=== PATIENT | female | born 1975 | race Caucasian/White ===

== ENCOUNTER 2016-08-16 12:28 | Emergency (ER) | payer OTHER ==
[2016-08-16 12:43] VITALS: BP 139/85; PULSE 80; TEMP 98; BMI 50.2
[2016-08-16] MEDS ORDERED: diazePAM 5 MG TABLET PO ONE (13:47)
[2016-08-16] MEDS ORDERED: NAPROXEN 500 MG TABLET (FP) PO ONE (13:48)
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
[2016-08-16] MEDS ORDERED: NAPROXEN 500 MG TABLET (FP) ONE (14:06)
[2016-08-16] MEDS ORDERED: diazePAM 5 MG TABLET ONE (14:07)
[2016-08-16 14:13] LABS: URINE APPEARANCE CLEAR; URINE BILIRUBIN NEGATIVE (NEGATIVE); URINE BLOOD NEGATIVE (NEGATIVE); URINE COLOR LTYELLOW; URINE GLUCOSE (UA) NEGATIVE (NEGATIVE); URINE KETONE NEGATIVE (NEGATIVE); URINE LEUK ESTERASE NEGATIVE (NEGATIVE); URINE NITRITE NEGATIVE (NEGATIVE); URINE PROTEIN NEGATIVE (NEGATIVE); URINE UROBILINOGEN NEGATIVE E.U./dl (0.2-1.0)
[2016-08-16] MEDS ORDERED: OXYCODONE/APAP 5/325MG COMBO TABLET PO ONE (15:26)
[2016-08-16] MEDS ORDERED: OXYCODONE/APAP 5/325MG COMBO TABLET ONE (15:47)
== END 2016-08-16 15:51 | disposition home or self-care (01) ==
LOC: JER 12:28 → JERFT 12:28
DX: S20.212A Contusion of left front wall of thorax, initial encounter (principal); S90.122A Contusion of left lesser toe(s) without damage to nail, initial encounter; W11.XXXA Fall on and from ladder, initial encounter; Y93.89 Activity, other specified; Y92.89 Other specified places as the place of occurrence of the external cause; Y99.8 Other external cause status
CPT/HCPCS: 71101-TC; 73660-TC; 81003; 84703; 99281-25

== ENCOUNTER 2016-09-17 21:32 | Emergency (ER) | payer OTHER ==
[2016-09-17 21:45] VITALS: BMI 51.5
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
[2016-09-17] MEDS ORDERED: ONDANSETRON 4 MG/2 ML VIAL IVPB ONE (22:24)
[2016-09-17] MEDS ORDERED: morphine CARPU-JECT 2 MG/1 ML DISP.SYRIN IVPUSH ONE (22:24)
[2016-09-17] MEDS ORDERED: SODIUM CHLORIDE 0.9% 500 ML INFUS.BAG IV ONE (22:24)
[2016-09-17] MEDS ORDERED: morphine CARPU-JECT 2 MG/1 ML DISP.SYRIN ONE (22:55)
[2016-09-17 23:07] LABS: BASOPHIL 1.2 % (0-2.0); EOSINOPHIL 1.7 % (0-4.5); MCH 27.2 pg (25.7-33.7); MCHC 32.9 g/dl (32.0-36.0); MEAN CELL VOLUME 82.7 fl (80-96); MEAN PLT VOLUME 8.3 fl (7.5-11.1); NEUTROPHILS 60.7 % (42.8-82.8); PLATELET COUNT 283 K/MM3 (134-434); RDW 14.4 % (11.6-15.6); WHITE BLOOD COUNT 12.8 K/mm3 (4.0-10.0)
[2016-09-17 23:34] LABS: ALBUMIN 3.9 g/dl (3.4-5.0); ALK PHOS 94 U/L (45-117); ANION GAP 11 (8-16); BILIRUBIN,TOTAL 0.6 mg/dL (0.2-1.0); CALCIUM 9.5 mg/dL (8.5-10.1); CO2 28 mmol/L (21-32); CREATININE 0.8 mg/dL (0.55-1.02); GLUCOSE,RANDOM 104 mg/dL (74-106); SGPT/ALT 42 U/L (12-78); TOT PROT 7.3 g/dl (6.4-8.2)
[2016-09-17 23:38] LABS: SGOT/AST 26 U/L (15-37)
[2016-09-18] MEDS ORDERED: morphine CARPU-JECT 2 MG/1 ML DISP.SYRIN IVPUSH ONE (00:22)
[2016-09-18] MEDS ORDERED: morphine CARPU-JECT 2 MG/1 ML DISP.SYRIN ONE (00:57)
[2016-09-18 01:53] LABS: URINE APPEARANCE CLEAR; URINE BILIRUBIN NEGATIVE (NEGATIVE); URINE BLOOD NEGATIVE (NEGATIVE); URINE COLOR YELLOW; URINE GLUCOSE (UA) NEGATIVE (NEGATIVE); URINE KETONE NEGATIVE (NEGATIVE); URINE LEUK ESTERASE NEGATIVE (NEGATIVE); URINE NITRITE NEGATIVE (NEGATIVE); URINE PROTEIN NEGATIVE (NEGATIVE); URINE UROBILINOGEN NEGATIVE E.U./dl (0.2-1.0)
[2016-09-18 03:36] VITALS: BP 128/73; PULSE 86; TEMP 97.5
== END 2016-09-18 03:35 | disposition home or self-care (01) ==
LOC: JER 21:32 → SUPCPDRO 21:32 → JER 09-18 03:35
PROC: 3E033NZ Introduction of Analgesics, Hypnotics, Sedatives into Peripheral Vein, Percutaneous Approach (ICD-10-PCS; principal; 2016-09-17)
PROC: 3E033GC Introduction of Other Therapeutic Substance into Peripheral Vein, Percutaneous Approach (ICD-10-PCS; 2016-09-17)
DX: M54.5 Low back pain (principal); E66.01 Morbid (severe) obesity due to excess calories; Z68.43 Body mass index [BMI] 50.0-59.9, adult
CPT/HCPCS: 36415; 74176; 80053; 81003; 84703; 85025; 96374; 96375; 96376; 99282-25

== ENCOUNTER 2016-10-03 11:53 | Emergency (ER) | payer OTHER ==
[2016-10-03 12:00] VITALS: BP 150/78; PULSE 80; TEMP 98; BMI 51.9
[2016-10-03] MEDS ORDERED: ALBUTEROL SO4 0.083% IH SOL 2.5 MG/3 ML VIAL.NEB. NEB ONE ×2 (12:35→12:42)
[2016-10-03] MEDS ORDERED: IBUPROFEN 400 MG TABLET (FP) PO ONE ×2 (12:35→12:42)
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
== END 2016-10-03 13:21 | disposition home or self-care (01) ==
LOC: JERFT 11:53
PROC: 3E0F7GC Introduction of Other Therapeutic Substance into Respiratory Tract, Via Natural or Artificial Opening (ICD-10-PCS; principal; 2016-10-03)
DX: J45.20 Mild intermittent asthma, uncomplicated (principal); F17.210 Nicotine dependence, cigarettes, uncomplicated
CPT/HCPCS: 87070; 87430; 94640; 99281-25

== ENCOUNTER → 2016-11-02 | Emergency (ER) | payer OTHER ==
[~2016-11-02] MED LIST: ACETAMINOPHEN 1000 MG/100 ML VIAL (NON FORMULARY) IVPB ONE; ACETAMINOPHEN INJECTION 100 ML IVPB ONE; FAMOTIDINE 20 MG/50 ML IVPB 50 ML IVPB ONE; MAG HYDROX/AL HYDROX/SIMETH 30 ML UNIT-DOSE CUP ONE; ONDANSETRON 4 MG/2 ML VIAL ONE; morphine CARPU-JECT 2 MG/1 ML DISP.SYRIN IVPUSH ONE; morphine CARPU-JECT 2 MG/1 ML DISP.SYRIN ONE
[2016-11-02 14:40] VITALS: BP 130/80; PULSE 93; TEMP 97.7; BMI 54.1
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
[2016-11-02 16:56] LABS: URINE APPEARANCE CLEAR; URINE BILIRUBIN NEGATIVE (NEGATIVE); URINE BLOOD NEGATIVE (NEGATIVE); URINE COLOR YELLOW; URINE GLUCOSE (UA) NEGATIVE (NEGATIVE); URINE KETONE NEGATIVE (NEGATIVE); URINE NITRITE NEGATIVE (NEGATIVE); URINE PROTEIN NEGATIVE (NEGATIVE); URINE UROBILINOGEN NEGATIVE E.U./dl (0.2-1.0)
[2016-11-02 17:17] LABS: URINE LEUK ESTERASE TRACE (NEGATIVE)
[2016-11-02 17:19] LABS: URINE MUCUS MANY; URINE RBC <1 /hpf (0-3); URINE WBC 1 /hpf (3-5)
--- NOTE | 2016-11-02 19:15 | PDOC ---
Attending Attestation - Resident Resident Name: Tanya Vines - HPI HPI: 11/02/16 19:14 obese 41 yo female p/w nontraumatic left knee pain -no erythema -pain with extending her leg - Physicial Exam PE: 11/02/16 19:15 obese 41 yo female p/w with pain behind her left knee and increased pain with left leg extension lungs cta b/l cvs [id number] abd obese,nontender neuro axox3 - Medical Decision Making 11/02/16 19:30 Duplex doppler shows Nicholson;s cyst in left knee, no DVT 11/02/16 19:30 discharge home with ortho followup
--- NOTE | 2016-11-02 19:33 | PDOC ---
*Physical Exam - Vital Signs Last Vital Signs Temp Pulse Resp BP Pulse Ox 97.7 F 93 H 18 130/80 100 11/02/16 14:36 11/02/16 14:36 11/02/16 14:36 11/02/16 14:36 11/02/16 14:36 ED Treatment Course - ADDITIONAL ORDERS Additional order review: Laboratory Results 11/02/16 15:58 Urine Color Yellow Urine Appearance Clear Urine pH 6.0 Ur Specific [place] 1.025 Urine Protein Negative Urine Glucose (UA) Negative Urine Ketones Negative Urine Blood Negative Urine Nitrite Negative Urine Bilirubin Negative Urine Urobilinogen Negative Ur Leukocyte Esterase Trace H Urine RBC <1 Urine WBC 1 Ur Epithelial Cells Moderate Urine Mucus Many Urine HCG, Qual Negative - RADIOLOGY Radiology Studies Ordered: Category Date Time Status DUPLEX VASCUL US-1 LEG [US] Stat Ultrasound 11/02/16 18:28 Completed - Medications Given in the ED: ED Medications Discontinued Medications Generic Name Dose Route Start Last Admin Trade Name Isidoro PRN Reason Stop Dose Admin Acetaminophen 1,000 mg 11/02/16 16:39 11/02/16 17:30 Ofirmev Injection - IVPB 11/02/16 16:40 1,000 mg ONCE ONE Administration Morphine Sulfate 2 mg 11/02/16 18:14 11/02/16 18:25 Morphine Injection - IVPUSH 11/02/16 18:15 2 mg ONCE ONE Administration *DC/Admit/Observation/Transfer Diagnosis at time of Disposition: Knee pain Qualifiers: Laterality: left Chronicity: acute Qualified Code(s): M25.562 - Pain in left knee Synovial cyst of knee Qualifiers: Laterality: left Qualified Code(s): M71.22 - Synovial cyst of popliteal space [ Nicholson], left knee - Discharge Dispostion Disposition: HOME Condition at time of disposition: Stable - Referrals Referrals: Haris Menjivar MD [Primary Care Provider] - Duncan Villatoro MD [Staff Physician] - Rajendra Porter MD [Staff Physician] - - Patient Instructions Printed Discharge Instructions: DI for Nicholson's Cyst Additional Instructions: please follow up with orthopedist if your pain persists - Post Discharge Activity
--- NOTE | 2016-11-05 11:53 | EKG ---
Test Reason : Blood Pressure : / mmHG Vent. Rate : 082 BPM Atrial Rate : 082 BPM P-R Int : 140 ms QRS Dur : 084 ms QT Int : 378 ms P-R-T Axes : 042 052 043 degrees QTc Int : 441 ms NORMAL SINUS RHYTHM NORMAL ECG WHEN COMPARED WITH ECG OF 12-JUN-2016 21:09, NO SIGNIFICANT CHANGE WAS FOUND Confirmed by CANDACE RALPH MD ([id number]) on 11/05/2016 11:53:02 AM Referred By: Confirmed By:CANDACE RALPH MD
== END | disposition home or self-care (01) ==
LOC: JER 14:30
PROC: 3E033NZ Introduction of Analgesics, Hypnotics, Sedatives into Peripheral Vein, Percutaneous Approach (ICD-10-PCS; principal; 2016-11-02)
DX: M25.562 Pain in left knee (principal); M71.22 Synovial cyst of popliteal space [Baker], left knee; K21.9 Gastro-esophageal reflux disease without esophagitis; Z87.442 Personal history of urinary calculi; E66.01 Morbid (severe) obesity due to excess calories; Z68.43 Body mass index [BMI] 50.0-59.9, adult; F17.210 Nicotine dependence, cigarettes, uncomplicated
CPT/HCPCS: 73560-TC-LT; 81003; 81015; 84703; 93005; 93010; 93971-TC; 96374; 96375; 99283-25

== ENCOUNTER 2016-12-20 10:43 | Emergency (ER) | payer OTHER ==
[2016-12-20 10:55] VITALS: BP 142/79; PULSE 91; TEMP 98; BMI 52.4
[2016-12-20] MEDS ORDERED: morphine CARPU-JECT 4 MG/1 ML DISP.SYRIN ONE (12:26)
[2016-12-20 12:28] LABS: ALBUMIN 3.7 g/dl (3.4-5.0); ANION GAP 11 (8-16); BILIRUBIN,TOTAL 0.6 mg/dL (0.2-1.0); CALCIUM 8.8 mg/dL (8.5-10.1); CO2 25 mmol/L (21-32); COCKROFT - GAULT 204.5185; CREATININE 0.8 mg/dL (0.55-1.02); GLUCOSE,RANDOM 97 mg/dL (74-106); SGOT/AST 20 U/L (15-37); SGPT/ALT 30 U/L (12-78); TOT PROT 6.7 g/dl (6.4-8.2)
[2016-12-20 12:29] LABS: ALK PHOS 105 U/L (45-117)
[2016-12-20] MEDS ORDERED: morphine CARPU-JECT 4 MG/1 ML DISP.SYRIN IVPUSH ONE (12:30)
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
[2016-12-20] MEDS ORDERED: ONDANSETRON 4 MG/2 ML VIAL IVPUSH ONE (13:29)
[2016-12-20] MEDS ORDERED: SODIUM CHLORIDE 1,000 ML IV STA (13:29)
[2016-12-20] MEDS ORDERED: MAG HYDROX/AL HYDROX/SIMETH 355 ML ORAL.SUSP PO ONE (13:29)
[2016-12-20] MEDS ORDERED: FAMOTIDINE 20 MG/50 ML IVPB 50 ML IVPB ONE (13:29)
[2016-12-20 13:52] LABS: MCH 27.7 pg (25.7-33.7); MEAN CELL VOLUME 83.9 fl (80-96); WHITE BLOOD COUNT 10.4 K/mm3 (4.0-10.0)
[2016-12-20 13:53] LABS: BASOPHIL 0.5 % (0-2.0); EOSINOPHIL 2.7 % (0-4.5); MCHC 33.1 g/dl (32.0-36.0); MEAN PLT VOLUME 8.3 fl (7.5-11.1); NEUTROPHILS 65.7 % (42.8-82.8); PLATELET COUNT 247 K/MM3 (134-434); RDW 14.5 % (11.6-15.6)
== END 2016-12-20 15:10 | disposition home or self-care (01) ==
LOC: JER 10:43
DX: K52.9 Noninfective gastroenteritis and colitis, unspecified (principal); K21.9 Gastro-esophageal reflux disease without esophagitis; E66.01 Morbid (severe) obesity due to excess calories; Z68.43 Body mass index [BMI] 50.0-59.9, adult
CPT/HCPCS: 36415; 80053; 83690; 84703; 85025; 99282-25

== ENCOUNTER 2017-02-02 10:02 | Emergency (ER) | payer OTHER ==
[2017-02-02 10:10] VITALS: BMI 51.5
[2017-02-02] MEDS ORDERED: SODIUM CHLORIDE 1,000 ML IV STA (10:19)
[2017-02-02] MEDS ORDERED: morphine CARPU-JECT 4 MG/1 ML DISP.SYRIN IVPUSH ONE (10:30)
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
[2017-02-02] MEDS ORDERED: morphine CARPU-JECT 2 MG/1 ML DISP.SYRIN ONE (10:52)
[2017-02-02 11:11] LABS: BASOPHIL 0.7 % (0-2.0); EOSINOPHIL 1.2 % (0-4.5); MCH 27.8 pg (25.7-33.7); MEAN CELL VOLUME 84.3 fl (80-96); MEAN PLT VOLUME 8.9 fl (7.5-11.1); NEUTROPHILS 69.2 % (42.8-82.8); PLATELET COUNT 326 K/MM3 (134-434); RDW 14.5 % (11.6-15.6); WHITE BLOOD COUNT 11.7 K/mm3 (4.0-10.0)
[2017-02-02 11:13] LABS: URINE APPEARANCE CLEAR; URINE BILIRUBIN NEGATIVE (NEGATIVE); URINE BLOOD NEGATIVE (NEGATIVE); URINE COLOR YELLOW; URINE GLUCOSE (UA) NEGATIVE (NEGATIVE); URINE KETONE NEGATIVE (NEGATIVE); URINE LEUK ESTERASE NEGATIVE (NEGATIVE); URINE NITRITE NEGATIVE (NEGATIVE); URINE PROTEIN NEGATIVE (NEGATIVE); URINE UROBILINOGEN NEGATIVE E.U./dl (0.2-1.0)
[2017-02-02] MEDS ORDERED: ACETAMINOPHEN 325 MG TABLET (FP) PO ONE (13:04)
[2017-02-02 13:47] LABS: ALBUMIN 3.7 g/dl (3.4-5.0); ANION GAP 8 (8-16); CALCIUM 8.8 mg/dL (8.5-10.1); CO2 31 mmol/L (21-32); CREATININE 0.8 mg/dL (0.55-1.02); GLUCOSE,RANDOM 87 mg/dL (74-106); SGOT/AST 24 U/L (15-37); SGPT/ALT 39 U/L (12-78)
[2017-02-02 13:48] LABS: ALK PHOS 99 U/L (45-117); BILIRUBIN,TOTAL 0.9 mg/dL (0.2-1.0); INR 0.9 (0.82-1.09); PROTHROMBIN TIME (PATIENT) 9.9 SEC (9.98-11.88)
--- NOTE | 2017-02-02 14:26 | PDOC ---
*Physical Exam - Vital Signs Last Vital Signs Temp Pulse Resp BP Pulse Ox 98.0 F 77 20 125/67 97 02/02/17 10:04 02/02/17 10:04 02/02/17 10:04 02/02/17 10:04 02/02/17 10:04 ED Treatment Course - LABORATORY CBC & Chemistry Diagram: 02/02/17 10:12 02/02/17 13:00 - ADDITIONAL ORDERS Additional order review: Laboratory Results 02/02/17 02/02/17 02/02/17 13:00 13:00 10:31 INR 0.90 Sodium 142 Potassium 4.0 Chloride 103 Carbon Dioxide 31 D Anion Gap 8 BUN 10 D Creatinine 0.8 Creat Clearance w eGFR > 60 Random Glucose 87 Calcium 8.8 Total Bilirubin 0.9 D AST 24 ALT 39 D Alkaline Phosphatase 99 Total Protein 7.0 Albumin 3.7 Lipase 203 Serum , Qual Urine Color Urine Appearance Urine pH Urine Protein Urine Glucose (UA) Urine Ketones Urine Blood Urine Nitrite Urine Bilirubin Urine Urobilinogen Ur Leukocyte Esterase Urine HCG, Qual Blood Type O NEGATIVE Antibody Screen Negative Spec Expiration Date 02/02/17 02/02/17 02/02/17 10:20 10:20 10:12 INR Sodium Cancelled Potassium Cancelled Chloride Cancelled Carbon Dioxide Cancelled Anion Gap Cancelled BUN Cancelled Creatinine Cancelled Creat Clearance w eGFR Cancelled Random Glucose Cancelled Calcium Cancelled Total Bilirubin Cancelled AST Cancelled ALT Cancelled Alkaline Phosphatase Cancelled Total Protein Cancelled Albumin Cancelled Lipase Cancelled Serum , Qual Negative Urine Color Yellow Urine Appearance Clear Urine pH 6.0 Urine Protein Negative Urine Glucose (UA) Negative Urine Ketones Negative Urine Blood Negative Urine Nitrite Negative Urine Bilirubin Negative Urine Urobilinogen Negative Ur Leukocyte Esterase Negative Urine HCG, Qual Cancelled Blood Type Antibody Screen Spec Expiration Date 02/02/17 10:12 RBC 5.01 MCV 84.3 MCHC 33.0 RDW 14.5 MPV 8.9 Neutrophils % 69.2 Lymphocytes % 22.5 Monocytes % 6.4 Eosinophils % 1.2 Basophils % 0.7 - Medications Given in the ED: ED Medications Discontinued Medications Generic Name Dose Route Start Last Admin Trade Name Freq PRN Reason Stop Dose Admin Acetaminophen 650 mg 02/02/17 13:04 02/02/17 13:10 Tylenol - PO 02/02/17 13:05 650 mg ONCE ONE Administration Sodium Chloride 1,000 mls @ 1,000 mls/hr 02/02/17 10:19 02/02/17 10:44 Normal Saline - IV 02/02/17 11:18 1,000 mls/hr ASDIR STA Administration Morphine Sulfate 2 mg 02/02/17 10:30 02/02/17 11:00 Morphine Injection - IVPUSH 02/02/17 10:31 2 mg ONCE ONE Administration *DC/Admit/Observation/Transfer Diagnosis at time of Disposition: Nausea vomiting and diarrhea - Discharge Dispostion Disposition: HOME Condition at time of disposition: Good - Referrals Referrals: Jose Streeter MD [Staff Physician] - Haris Menjivar MD [Primary Care Provider] - - Patient Instructions Printed Discharge Instructions: Viral Gastroenteritis Additional Instructions: Your labs were normal today. Please follow-up with Dr. Streeter of GI - Post Discharge Activity Work/School Note: Back to Work
[2017-02-02 15:18] VITALS: BP 125/65; PULSE 63; TEMP 97.8
== END 2017-02-02 15:18 | disposition home or self-care (01) ==
LOC: JER 10:02
DX: K52.9 Noninfective gastroenteritis and colitis, unspecified (principal); K21.9 Gastro-esophageal reflux disease without esophagitis; E66.09 Other obesity due to excess calories; Z68.43 Body mass index [BMI] 50.0-59.9, adult
CPT/HCPCS: 36415; 80053; 81003; 83690; 84703; 85025; 85610; 86850; 86900; 86901; 99283-25

== ENCOUNTER 2017-07-15 16:45 | Emergency (ER) | payer OTHER ==
[2017-07-15 16:55] VITALS: BP 149/96; PULSE 83; TEMP 98.1; BMI 46.4
--- NOTE | 2017-07-15 16:57 | PDOC ---
Rapid Medical Evaluation Time Seen by Provider: 07/15/17 16:53 Medical Evaluation: Allergies Allergy/AdvReac Type Severity Reaction Status Date / Time iodine Allergy Severe Difficulty Verified 07/15/17 16:53 Breathing Shellfish Allergy Severe Difficulty Verified 07/15/17 16:53 Breathing ketorolac tromethamine Allergy Mild Hives, hot Verified 07/15/17 16:53 [From Toradol] under buttocks. egg Allergy Hives Verified 07/15/17 16:53 tramadol AdvReac Severe headache Verified 07/15/17 16:53 12 16:53 I have performed a brief in-person evaluation of this patient. The patient presents with a chief complaint of: Got scratched in R eye x 6 days by puppy, did not come to ED and now p/w R eye pain w/ erythema, tearing, discharge and blurry vision Pertinent physical exam findings: R conjunctival erythema w/ tearing I have ordered the following:nothing The patient will proceed to the ED for further evaluation.
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
[2017-07-15] MEDS ORDERED: ERYTHROMYCIN 0.5% OPHTHALMIC OINTMENT 3.5 GM TUBE OD ONE (18:13)
[2017-07-15] MEDS ORDERED: ERYTHROMYCIN 0.5% OPHTHALMIC OINTMENT 3.5 GM TUBE ONE (18:15)
== END 2017-07-15 18:22 | disposition home or self-care (01) ==
LOC: JERFT 16:45
DX: S05.01XA Injury of conjunctiva and corneal abrasion without foreign body, right eye, initial encounter (principal); X58.XXXA Exposure to other specified factors, initial encounter; Y93.89 Activity, other specified; Y92.9 Unspecified place or not applicable; F17.210 Nicotine dependence, cigarettes, uncomplicated
CPT/HCPCS: 99281-25

== ENCOUNTER 2017-08-14 19:06 | Emergency (ER) | payer OTHER ==
[2017-08-14 19:28] VITALS: BP 150/93; PULSE 88; TEMP 98.7; BMI 51.5
[2017-08-14] MEDS ORDERED: ALBUTEROL SO4 2.5/IPRATROPIUM 0.5 INH SOL 3 ML VIAL.NEB. NEB ONE ×2 (20:00→20:07)
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
[2017-08-14 20:22] LABS: URINE APPEARANCE CLEAR; URINE BILIRUBIN NEGATIVE (NEGATIVE); URINE BLOOD NEGATIVE (NEGATIVE); URINE COLOR LTYELLOW; URINE GLUCOSE (UA) NEGATIVE (NEGATIVE); URINE KETONE NEGATIVE (NEGATIVE); URINE LEUK ESTERASE NEGATIVE (NEGATIVE); URINE NITRITE NEGATIVE (NEGATIVE); URINE PROTEIN NEGATIVE (NEGATIVE); URINE UROBILINOGEN NEGATIVE mg/dL (0.2-1.0)
[2017-08-14] MEDS ORDERED: ACETAMINOPHEN 325 MG TABLET (FP) ONE (20:35)
[2017-08-14] MEDS ORDERED: guaiFENesin 200 MG/10 ML 10 ML UNIT-DOSE CUPS PO ONE (21:07)
[2017-08-14] MEDS ORDERED: guaiFENesin 200 MG/10 ML 10 ML UNIT-DOSE CUPS ONE (21:17)
== END 2017-08-14 21:42 | disposition home or self-care (01) ==
LOC: JER 19:06
PROC: 3E0F7GC Introduction of Other Therapeutic Substance into Respiratory Tract, Via Natural or Artificial Opening (ICD-10-PCS; principal; 2017-08-14)
DX: J40 Bronchitis, not specified as acute or chronic (principal)
CPT/HCPCS: 71046-TC; 81003; 94640; 99283-25

== ENCOUNTER 2018-01-15 23:50 | Emergency (ER) | payer OTHER ==
[2018-01-16 00:12] VITALS: BP 141/92; PULSE 80; TEMP 97.2; BMI 50.2
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
[2018-01-16 00:39] LABS: EOS % 2.5 % (0-4.5); HEMOGLOBIN 13.8 GM/dL (10.7-15.3); LYMPH % 30.8 % (8-40); MCH 28.2 pg (25.7-33.7); MCHC 32.9 g/dl (32.0-36.0); MEAN CELL VOLUME 85.6 fl (80-96); MEAN PLT VOLUME 8.2 fl (7.5-11.1); MONO % 8.2 % (3.8-10.2); NEUT % 57.5 % (42.8-82.8); PLATELET COUNT 284 K/MM3 (134-434); RBC 4.91 M/mm3 (3.60-5.2); RDW 14.5 % (11.6-15.6); RETICULOCYTES 1.74 % (0.5-1.5); WHITE BLOOD COUNT 11.8 K/mm3 (4.0-10.0)
[2018-01-16 00:53] LABS: INR 0.89 (0.82-1.09); PROTHROMBIN TIME (PATIENT) 10.1 SEC (9.7-13.0)
[2018-01-16 01:02] LABS: ALBUMIN 3.5 g/dl (3.4-5.0); ALK PHOS 108 U/L (45-117); ANION GAP 4 (8-16); BILIRUBIN,TOTAL 0.6 mg/dL (0.2-1.0); BLOOD UREA NITROGEN 20 mg/dL (7-18); CALCIUM 8.9 mg/dL (8.5-10.1); CHLORIDE 106 mmol/L (98-107); CO2 29 mmol/L (21-32); CREATININE 0.8 mg/dL (0.55-1.02); GLUCOSE,RANDOM 89 mg/dL (74-106); SGPT/ALT 39 U/L (12-78); SODIUM 139 mmol/L (136-145)
[2018-01-16 01:03] LABS: POTASSIUM 4.3 mmol/L (3.5-5.1); SGOT/AST 24 U/L (15-37)
[2018-01-16] MEDS ORDERED: morphine SULFATE 4 MG/ML VIAL ONE (01:37)
[2018-01-16] MEDS ORDERED: SODIUM CHLORIDE 1,000 ML IV STA (01:41)
[2018-01-16] MEDS ORDERED: morphine CARPU-JECT 4 MG/1 ML DISP.SYRIN IVPUSH ONE (01:41)
[2018-01-16] MEDS ORDERED: PANTOPRAZOLE SODIUM 40 MG VIAL IVPUSH ONE (02:08)
[2018-01-16] MEDS ORDERED: PANTOPRAZOLE SODIUM 40 MG/100 ML BAG IVPB ONE (02:21)
[2018-01-16] MEDS ORDERED: ONDANSETRON 4 MG/2 ML VIAL ONE (03:12)
[2018-01-16] MEDS ORDERED: ONDANSETRON 4 MG/2 ML VIAL IVPUSH ONE (03:15)
[2018-01-16] MEDS ORDERED: morphine CARPU-JECT 2 MG/1 ML DISP.SYRIN IVPUSH ONE (03:41)
[2018-01-16] MEDS ORDERED: morphine CARPU-JECT 2 MG/1 ML DISP.SYRIN ONE (03:41)
== END 2018-01-16 05:29 | disposition home or self-care (01) ==
LOC: JER 23:50
PROC: 3E033NZ Introduction of Analgesics, Hypnotics, Sedatives into Peripheral Vein, Percutaneous Approach (ICD-10-PCS; principal; 2018-01-15)
PROC: 3E033GC Introduction of Other Therapeutic Substance into Peripheral Vein, Percutaneous Approach (ICD-10-PCS; 2018-01-15)
DX: K57.30 Diverticulosis of large intestine without perforation or abscess without bleeding (principal); K21.9 Gastro-esophageal reflux disease without esophagitis; E66.9 Obesity, unspecified; Z68.43 Body mass index [BMI] 50.0-59.9, adult; Z87.442 Personal history of urinary calculi
CPT/HCPCS: 36415; 74176-TC; 80053; 84703; 85025; 85044; 85610; 86850; 86900; 86901; 96361; 96374; 96375; 96376; 99282-25; J7030

== ENCOUNTER 2018-04-17 01:39 | Inpatient (IN) | payer OTHER ==
--- NOTE | 2018-04-17 02:20 | PDOC ---
Attending Attestation - Resident Resident Name: Graciela Sarkar - ED Attending Attestation I have performed the following: I have examined & evaluated the patient, The case was reviewed & discussed with the resident, I agree w/resident's findings & plan - HPI HPI: 04/17/18 04:23 Pt comes with abdominal pain in the RUQ, as well as slight right adnexal pain. She had a cholecystectomy 22 years ago and she is obese. It is possible that she has a duct stone. Pt also has an essure in place, for this we will check a pelvic sono in the AM - Physicial Exam PE: 04/22/18 04:39 Agree with resident exam. Vag exam is normal. - Medical Decision Making 04/17/18 04:24 WBC is slightly elevated. UA has 1+ leukocytes. 04/22/18 04:39 Pt signed out to the day team
[2018-04-17] MEDS ORDERED: MAG HYDROX/AL HYDROX/SIMETH 30 ML UNIT-DOSE CUP PO ONE (03:11)
[2018-04-17] MEDS ORDERED: ONDANSETRON *ODT* 4 MG TABLET SL ONE (03:11)
[2018-04-17] MEDS ORDERED: RANITIDINE HCL 150 MG TABLET (FP) PO ONE (03:11)
[2018-04-17] MEDS ORDERED: ONDANSETRON 8 MG TABLET (FP) PO ONE (03:31)
[2018-04-17] MEDS ORDERED: RANITIDINE HCL 150 MG TABLET (FP) ONE (03:31)
[2018-04-17] MEDS ORDERED: MAG HYDROX/AL HYDROX/SIMETH 30 ML UNIT-DOSE CUP ONE (03:31)
[2018-04-17 03:56] LABS: URINE APPEARANCE SLCLOUDY; URINE BILIRUBIN NEGATIVE (<2.0 mg/dL); URINE COLOR YELLOW; URINE GLUCOSE (UA) NEGATIVE (NEGATIVE); URINE KETONE NEGATIVE (NEGATIVE); URINE NITRITE NEGATIVE (NEGATIVE); URINE PROTEIN NEGATIVE (NEGATIVE); URINE UROBILINOGEN NEGATIVE mg/dL (0.2-1.0)
[2018-04-17 03:58] LABS: BASO % 0.8 % (0-2.0); EOS % 2.9 % (0-4.5); HEMATOCRIT 42.2 % (32.4-45.2); HEMOGLOBIN 14.4 GM/dL (10.7-15.3); LYMPH % 33.7 % (8-40); MCH 29.3 pg (25.7-33.7); MCHC 34.2 g/dl (32.0-36.0); MEAN CELL VOLUME 85.7 fl (80-96); MEAN PLT VOLUME 8.1 fl (7.5-11.1); MONO % 7.8 % (3.8-10.2); NEUT % 54.8 % (42.8-82.8); PLATELET COUNT 309 K/MM3 (134-434); RBC 4.93 M/mm3 (3.60-5.2); RDW 13.9 % (11.6-15.6); WHITE BLOOD COUNT 10.7 K/mm3 (4.0-10.0)
[2018-04-17 03:59] LABS: URINE LEUK ESTERASE 1+ (NEGATIVE)
[2018-04-17 04:00] LABS: EPI CELLS MODERATE /HPF (FEW); URINE MUCUS MANY
[2018-04-17] MEDS ORDERED: morphine CARPU-JECT 2 MG/1 ML DISP.SYRIN IVPUSH ONE (04:40)
[2018-04-17] MEDS ORDERED: SODIUM CHLORIDE 0.9% 500 ML INFUS.BAG IV ONE (04:40)
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
[2018-04-17 04:50] LABS: ALBUMIN 3.4 g/dl (3.4-5.0); ALK PHOS 104 U/L (45-117); ANION GAP 7 MMOL/L (8-16); BILIRUBIN,TOTAL 0.5 mg/dL (0.2-1.0); BLOOD UREA NITROGEN 18 mg/dL (7-18); CALCIUM 8.8 mg/dL (8.5-10.1); CHLORIDE 105 mmol/L (98-107); CO2 28 mmol/L (21-32); GLUCOSE,RANDOM 97 mg/dL (74-106); MAGNESIUM 2.1 mg/dL (1.8-2.4); PHOSPHOROUS 4.1 mg/dL (2.5-4.9); POTASSIUM 4.2 mmol/L (3.5-5.1); SGOT/AST 16 U/L (15-37); SGPT/ALT 28 U/L (12-78); SODIUM 140 mmol/L (136-145); TOT PROT 7.1 g/dl (6.4-8.2)
[2018-04-17 04:51] LABS: LIPASE 202 U/L (73-393)
[2018-04-17] MEDS ORDERED: morphine SULFATE 4 MG/ML VIAL ONE (04:51)
[2018-04-17 04:55] LABS: HCG,QUALITATIVE URINE Negative
[2018-04-17] MEDS ORDERED: KETOROLAC TROMETHAMINE 30 MG/1 ML VIAL IVPUSH ONE ×2 (06:10→13:01)
[2018-04-17] MEDS ORDERED: KETOROLAC TROMETHAMINE 30 MG/1 ML VIAL ONE ×2 (06:35→13:39)
[2018-04-17] MEDS ORDERED: ACETAMINOPHEN INJECTION 100 ML IVPB ONE (09:30)
[2018-04-17] MEDS ORDERED: ACETAMINOPHEN 1000 MG/100 ML VIAL (NON FORMULARY) IVPB ONE (09:39)
[2018-04-17] MEDS ORDERED: CEFTRIAXONE 1,000 MG in DEXTROSE 5%-WATER - 50 ML IVPB ONE (09:39)
[2018-04-17] MEDS ORDERED: CEFTRIAXONE 1 GM/50 ML BAG ONE (09:45)
[2018-04-17] MEDS ORDERED: ONDANSETRON 4 MG/2 ML VIAL ONE (09:49)
--- NOTE | 2018-04-17 10:03 | PDOC ---
*Physical Exam - Vital Signs Last Vital Signs Temp Pulse Resp BP Pulse Ox 98.2 F 72 16 110/63 99 04/17/18 06:46 04/17/18 06:46 04/17/18 06:46 04/17/18 06:46 04/17/18 06:46 - Physical Exam General Appearance: Yes: Nourished, Appropriately Dressed Respiratory/Chest: positive: Lungs Clear Cardiovascular: positive: Regular Rhythm, Regular Rate Gastrointestinal/Abdominal: positive: Normal Bowel Sounds, Soft, Tenderness. negative: Pulsatile Mass, Distended, Guarding, Rebound ED Treatment Course - LABORATORY CBC & Chemistry Diagram: 04/17/18 03:45 04/17/18 03:45 - ADDITIONAL ORDERS Additional order review: Laboratory Results 04/17/18 04/17/18 03:45 03:45 Sodium 140 Potassium 4.2 Chloride 105 Carbon Dioxide 28 Anion Gap 7 L BUN 18 Creatinine 1.0 Creat Clearance w eGFR > 60 Random Glucose 97 Calcium 8.8 Phosphorus 4.1 Magnesium 2.1 Total Bilirubin 0.5 AST 16 ALT 28 Alkaline Phosphatase 104 Total Protein 7.1 Albumin 3.4 Lipase 202 Urine Color Yellow Urine Appearance Slcloudy Urine pH 5.0 Ur Specific [place] 1.028 Urine Protein Negative Urine Glucose (UA) Negative Urine Ketones Negative Urine Blood Negative Urine Nitrite Negative Urine Bilirubin Negative Urine Urobilinogen Negative Ur Leukocyte Esterase 1+ H Urine WBC (Auto) 12 Urine RBC (Auto) 5 Ur Epithelial Cells Moderate Urine Mucus Many Urine HCG, Qual Negative 04/17/18 03:45 RBC 4.93 MCV 85.7 MCHC 34.2 RDW 13.9 MPV 8.1 Neutrophils % 54.8 Lymphocytes % 33.7 Monocytes % 7.8 Eosinophils % 2.9 Basophils % 0.8 - Medications Given in the ED: ED Medications Discontinued Medications Generic Name Dose Route Start Last Admin Trade Name Mesfinq PRN Reason Stop Dose Admin Acetaminophen 1,000 mg 04/17/18 09:39 04/17/18 09:42 Ofirmev Injection - IVPB 04/17/18 09:40 1,000 mg ONCE ONE Administration Al Hydroxide/Mg Hydroxide 30 ml 04/17/18 03:11 04/17/18 03:19 Mylanta Oral Suspension - PO 04/17/18 03:12 30 ml ONCE ONE Administration Diphenhydramine HCl 12.5 mg 04/17/18 06:10 04/17/18 06:32 Benadryl Injection - IVPUSH 04/17/18 06:11 12.5 mg ONCE ONE Administration Ketorolac Tromethamine 30 mg 04/17/18 06:10 04/17/18 06:22 Toradol Injection - IVPUSH 04/17/18 06:11 30 mg ONCE ONE Administration Morphine Sulfate 2 mg 04/17/18 04:40 04/17/18 04:57 Morphine Injection - IVPUSH 04/17/18 04:41 2 mg ONCE ONE Administration Ondansetron HCl 4 mg 04/17/18 03:11 04/17/18 03:20 Zofran Odt - SL 04/17/18 03:12 4 mg ONCE ONE Administration Ranitidine HCl 300 mg 04/17/18 03:11 04/17/18 03:20 Zantac - PO 04/17/18 03:12 300 mg ONCE ONE Administration Sodium Chloride 1,000 ml 04/17/18 04:40 04/17/18 04:57 Normal Saline - IV 04/17/18 04:41 1,000 ml ONCE ONE Administration Medical Decision Making - Medical Decision Making 04/17/18 09:58 42 yo female pmh of GERD, diverticulitis, karely, appy and tubes tied presents to the ED with diffuse abdominal pain (most concentrated in the LLQ) for 5 days. Patient states the pain is worse than her last episode of diverticulitis and admits to nausea and fever. Ranitidine did not help, morphine was given which did not help. Patient states toradol helped a little but continues to be in pain. Pelvic ultrasound negative abd/pelvic CT ordered and will contact PCP for OBS admission CT scans negative *DC/Admit/Observation/Transfer Diagnosis at time of Disposition: Abdominal pain Qualifiers: Abdominal location: unspecified location Qualified Code(s): R10.9 - Unspecified abdominal pain - Discharge Dispostion Condition at time of disposition: Stable Decision to Admit order: Yes - Referrals - Patient Instructions - Post Discharge Activity
--- NOTE | 2018-04-17 13:37 | CON.GI ---
Consult Consult Specialty:: GI - History of Present Illness History of Present Illness: Chart reviewed. Events noted. Per ED intake: Jocelyn Saha is a 42yo woman with a PMH of GERD, diverticulitis, s/p appendectomy, s/p cholecystecomy who presents with diffuse abdominal pain, nausea. The pain is worst in the LLQ and epigastrium but located throughout her entire abdomen to some degree. She recently had diarrhea last week and went to see her PMD. She mentioned the increased abdominal pain and was told that she "may have c diff again." Her PMD sent tests but she did not hear back yet. Ms Saha has tried her normal acid medication and pepto-bismol without any imrpovement. She reports that her diarrhea has resolved over the past 1-2 days and she has not had any episodes of vomiting, but she has not been eating much at all recently. She denies any recent fever, SOB, chest pain, urinary or vaginal symptoms. She states that she has been cold lately, which is not normal for her. She also reports that she is currently guille-menopausal, though she does still get her period. She does not believe that she could be at this time but is not sure. She reports having her "tubes tied" with a device years ago, and she feels that she has had problems ever since then. At the time of this encounter, the pt corroborated the above history. An EGD was done by Dr. Engel 5-6 y ago, per patient. Esophagitis and gastritis were found. She was prescribed esomeprazole, which she ontinues to take. No ill contacts, travelling, new meds, ETOH. Takes NSAIDs. Otherwise, the pt reported no fever, cills, dysphagia, odynophagia, hematemeisis, jaundice, melena, or hematochezia. CT A/P w/o - fatty liver. TVUS - normal. Minimal leukocytosis, normal CBC otherwise Normal CMP UA 1+ leukocytes, HCG - negative - History Source History Provided By: Patient, Medical Record - Past Medical History ...LMP: 10/12/11 - Past Surgical History Past Surgical History: Yes: Appendectomy, Cholecystectomy, Joint Replacement (R hip) - Alcohol/Substance Use Hx Alcohol Use: No - Smoking History Smoking history: Current some day smoker Have you smoked in the past 12 months: Yes Aproximately how many cigarettes per day: 10 Home Medications - Allergies Allergies/Adverse Reactions: Allergies Allergy/AdvReac Type Severity Reaction Status Date / Time iodine Allergy Severe Difficulty Verified 04/17/18 02:13 Breathing Shellfish Allergy Severe Difficulty Verified 04/17/18 02:13 Breathing ketorolac tromethamine Allergy Mild Hives, hot Verified 04/17/18 02:13 [From Toradol] under buttocks. egg Allergy Hives Verified 04/17/18 02:13 tramadol AdvReac Severe headache Verified 04/17/18 02:13 - Home Medications Home Medications: Ambulatory Orders Esomeprazole Magnesium [Nexium 24Hr] 40 mg PO DAILY 09/17/16 Naproxen 500 mg PO BID #14 tablet 11/21/17 Family Disease History - Family Disease History Family History: Unremarkable Review of Systems Findings/Remarks: as per HPI, ED, H&P Physical Exam-GI Vital Signs: Vital Signs Temperature 98.2 F 04/17/18 06:46 Pulse Rate 72 04/17/18 06:46 Respiratory Rate 16 04/17/18 06:46 Blood Pressure 110/63 04/17/18 06:46 O2 Sat by Pulse Oximetry (%) 99 04/17/18 06:46 Constitutional: Yes: Well Nourished, No Distress, Calm Eyes: Yes: Conjunctiva Clear, Other HENT: Yes: Atraumatic Neck: Yes: Supple Cardiovascular: Yes: Regular Rate and Rhythm Respiratory: Yes: Regular Gastrointestinal Inspection: Yes: Other (obese). No: Ascites, Distention ...Palpate: Yes: Mass, Soft, Tenderness. No: Firm/Rigid, Guarding, Tenderness, Epigastium, Tenderness, Rebound Neurological: Yes: Alert, Oriented Labs: CBC, BMP 04/17/18 03:45 04/17/18 03:45 Laboratory Last Values WBC 10.7 K/mm3 (4.0-10.0) H 04/17/18 03:45 RBC 4.93 M/mm3 (3.60-5.2) 04/17/18 03:45 Hgb 14.4 GM/dL (10.7-15.3) 04/17/18 03:45 Hct 42.2 % (32.4-45.2) 04/17/18 03:45 MCV 85.7 fl (80-96) 04/17/18 03:45 MCH 29.3 pg (25.7-33.7) 04/17/18 03:45 MCHC 34.2 g/dl (32.0-36.0) 04/17/18 03:45 RDW 13.9 % (11.6-15.6) 04/17/18 03:45 Plt Count 309 K/MM3 (134-434) 04/17/18 03:45 MPV 8.1 fl (7.5-11.1) 04/17/18 03:45 Absolute Neuts (auto) 5.9 K/mm3 (1.5-8.0) 04/17/18 03:45 Neutrophils % 54.8 % (42.8-82.8) 04/17/18 03:45 Lymphocytes % 33.7 % (8-40) 04/17/18 03:45 Monocytes % 7.8 % (3.8-10.2) 04/17/18 03:45 Eosinophils % 2.9 % (0-4.5) 04/17/18 03:45 Basophils % 0.8 % (0-2.0) 04/17/18 03:45 Nucleated RBC % 0 % (0-0) 04/17/18 03:45 Sodium 140 mmol/L (136-145) 04/17/18 03:45 Potassium 4.2 mmol/L (3.5-5.1) 04/17/18 03:45 Chloride 105 mmol/L (98-107) 04/17/18 03:45 Carbon Dioxide 28 mmol/L (21-32) 04/17/18 03:45 Anion Gap 7 MMOL/L (8-16) L 04/17/18 03:45 BUN 18 mg/dL (7-18) 04/17/18 03:45 Creatinine 1.0 mg/dL (0.55-1.02) 04/17/18 03:45 Creat Clearance w eGFR > 60 (>60) 04/17/18 03:45 Random Glucose 97 mg/dL (74-106) 04/17/18 03:45 Calcium 8.8 mg/dL (8.5-10.1) 04/17/18 03:45 Phosphorus 4.1 mg/dL (2.5-4.9) 04/17/18 03:45 Magnesium 2.1 mg/dL (1.8-2.4) 04/17/18 03:45 Total Bilirubin 0.5 mg/dL (0.2-1.0) 04/17/18 03:45 AST 16 U/L (15-37) 04/17/18 03:45 ALT 28 U/L (12-78) 04/17/18 03:45 Alkaline Phosphatase 104 U/L (45-117) 04/17/18 03:45 Total Protein 7.1 g/dl (6.4-8.2) 04/17/18 03:45 Albumin 3.4 g/dl (3.4-5.0) 04/17/18 03:45 Lipase 202 U/L (73-393) 04/17/18 03:45 Urine Color Yellow 04/17/18 03:45 Urine Appearance Slcloudy 04/17/18 03:45 Urine pH 5.0 (5.0-8.0) 04/17/18 03:45 Ur Specific [place] 1.028 (1.001-1.035) 04/17/18 03:45 Urine Protein Negative (NEGATIVE) 04/17/18 03:45 Urine Glucose (UA) Negative (NEGATIVE) 04/17/18 03:45 Urine Ketones Negative (NEGATIVE) 04/17/18 03:45 Urine Blood Negative (NEGATIVE) 04/17/18 03:45 Urine Nitrite Negative (NEGATIVE) 04/17/18 03:45 Urine Bilirubin Negative (<2.0 mg/dL) 04/17/18 03:45 Urine Urobilinogen Negative mg/dL (0.2-1.0) 04/17/18 03:45 Ur Leukocyte Esterase 1+ (NEGATIVE) H 04/17/18 03:45 Urine WBC (Auto) 12 /hpf (3-5) 04/17/18 03:45 Urine RBC (Auto) 5 /hpf (0-3) 04/17/18 03:45 Ur Epithelial Cells Moderate /HPF (FEW) 04/17/18 03:45 Urine Mucus Many 04/17/18 03:45 Urine HCG, Qual Negative 04/17/18 03:45 Imaging - Results Cat Scan: Report Reviewed Ultrasound: Report Reviewed Problem List - Problems (1) Left lower quadrant abdominal pain of unknown etiology Code(s): R10.32 - LEFT LOWER QUADRANT PAIN (2) Diverticulosis Code(s): K57.90 - DVRTCLOS OF INTEST, PART UNSP, W/O PERF OR ABSCESS W/O BLEED (3) History of cholecystectomy Code(s): Z90.49 - ACQUIRED ABSENCE OF OTHER SPECIFIED PARTS OF DIGESTIVE TRACT (4) GERD (gastroesophageal reflux disease) Code(s): K21.9 - GASTRO-ESOPHAGEAL REFLUX DISEASE WITHOUT ESOPHAGITIS (5) Fatty liver Code(s): K76.0 - FATTY (CHANGE OF) LIVER, NOT ELSEWHERE CLASSIFIED (6) Fatty liver Code(s): K76.0 - FATTY (CHANGE OF) LIVER, NOT ELSEWHERE CLASSIFIED Assessment/Plan A 42F with the above outlined complaints and findings on exam, imaging, and labs. Given the abdominal symptoms, mild leukocytosis and diverticulosis on CT, consider treating mild diverticulitis. Cannot exclude symptomatic GERD in this morbidly obese pt. Recommend: continue PPI, add carafate 1 gm po qid, flagyl/ quinolone for 7 days. BRAT diet. Daily CBC. EGD on this admission was discussed with the patient
[2018-04-17] MEDS: DEXTROSE 5%-0.45% SALINE 1,000 ML IV SCH (20:19)
[2018-04-17] MEDS: MORPHINE SULFATE 2 MG/ML VIAL IVPUSH PRN (20:19)
[2018-04-17] MEDS: PANTOPRAZOLE 40 MG TABLET (FP) PO SCH (20:21)
[2018-04-17] MEDS: SUCRALFATE 1 GM TABLET (FP) PO SCH ×2 (20:21→22:39)
[2018-04-17] MEDS: ONDANSETRON 4 MG/2 ML VIAL IVPUSH PRN (20:49)
[2018-04-17] MEDS: HEPARIN NA (PORCINE) 5,000 UNITS/ML 1ML VIAL SQ SCH (22:39)
[2018-04-17 22:46] VITALS: BMI 49.4
--- NOTE | 2018-04-17 23:32 | HP ---
Admitting History and Physical - Past Medical History ...LMP: 10/12/11 - Past Surgical History Past Surgical History: Yes: Appendectomy, Cholecystectomy, Joint Replacement (R hip) - Smoking History Smoking history: Current some day smoker Have you smoked in the past 12 months: Yes Aproximately how many cigarettes per day: 10 - Alcohol/Substance Use Hx Alcohol Use: Yes (social) Home Medications - Allergies Allergies/Adverse Reactions: Allergies Allergy/AdvReac Type Severity Reaction Status Date / Time iodine Allergy Severe Difficulty Verified 04/17/18 02:13 Breathing Shellfish Allergy Severe Difficulty Verified 04/17/18 02:13 Breathing ketorolac tromethamine Allergy Mild Hives, hot Verified 04/17/18 02:13 [From Toradol] under buttocks. egg Allergy Hives Verified 04/17/18 02:13 tramadol AdvReac Severe headache Verified 04/17/18 02:13 - Home Medications Home Medications: Ambulatory Orders Esomeprazole Magnesium [Nexium 24Hr] 40 mg PO DAILY 09/17/16 Naproxen 500 mg PO BID #14 tablet 11/21/17 Physical Examination Vital Signs: Vital Signs Temperature 97.4 F L 04/17/18 22:42 Pulse Rate 81 04/17/18 22:42 Respiratory Rate 20 04/17/18 22:50 Blood Pressure 134/80 04/17/18 22:42 O2 Sat by Pulse Oximetry (%) 96 04/17/18 22:50 Labs: CBC, BMP 04/17/18 03:45 04/17/18 03:45
[2018-04-18] MEDS: MORPHINE SULFATE 2 MG/ML VIAL IVPUSH PRN ×4 (02:15→21:05)
[2018-04-18 08:18] LABS: CHLORIDE 103 mmol/L (98-107); POTASSIUM 4.2 mmol/L (3.5-5.1); SODIUM 139 mmol/L (136-145)
[2018-04-18 08:22] LABS: BASO % 0.4 % (0-2.0); EOS % 2.8 % (0-4.5); HEMATOCRIT 41.4 % (32.4-45.2); HEMOGLOBIN 13.8 GM/dL (10.7-15.3); MCH 28.4 pg (25.7-33.7); MCHC 33.4 g/dl (32.0-36.0); MEAN CELL VOLUME 85.1 fl (80-96); MEAN PLT VOLUME 8.2 fl (7.5-11.1); MONO % 7.2 % (3.8-10.2); NEUT % 54.6 % (42.8-82.8); PLATELET COUNT 280 K/MM3 (134-434); RBC 4.86 M/mm3 (3.60-5.2); RDW 13.9 % (11.6-15.6); WHITE BLOOD COUNT 8.8 K/mm3 (4.0-10.0)
[2018-04-18 08:26] LABS: ALBUMIN 3.2 g/dl (3.4-5.0); ALK PHOS 76 U/L (45-117); ANION GAP 7 MMOL/L (8-16); BILIRUBIN,TOTAL 0.8 mg/dL (0.2-1.0); BLOOD UREA NITROGEN 14 mg/dL (7-18); CALCIUM 8.6 mg/dL (8.5-10.1); CO2 29 mmol/L (21-32); CREATININE 0.8 mg/dL (0.55-1.02); GLUCOSE,RANDOM 90 mg/dL (74-106); SGOT/AST 19 U/L (15-37); SGPT/ALT 26 U/L (12-78); TOT PROT 6.5 g/dl (6.4-8.2)
[2018-04-18] MEDS: HEPARIN NA (PORCINE) 5,000 UNITS/ML 1ML VIAL SQ SCH ×2 (09:00→21:05)
[2018-04-18] MEDS: ONDANSETRON 4 MG/2 ML VIAL IVPUSH PRN (09:00)
[2018-04-18] MEDS: PANTOPRAZOLE 40 MG TABLET (FP) PO SCH (09:01)
[2018-04-18] MEDS: SUCRALFATE 1 GM TABLET (FP) PO SCH ×4 (09:01→21:05)
[2018-04-18] MEDS: DEXTROSE 5%-0.45% SALINE 1,000 ML IV SCH ×2 (11:28→18:01)
[2018-04-18] MEDS ORDERED: diphenhydrAMINE HCL 25 MG CAPSULE (FP) PO PRN (12:35)
--- NOTE | 2018-04-18 18:37 | PN ---
Progress Note (short form) - Note Progress Note: GI NOte: I was called to see the patient for GI consultation but after a discussion regarding how busy our practice is and difficulties in accommodating our patients with office visits she declined the consultation and will ask for a referral for another acute care physician as an outpatient.
--- NOTE | 2018-04-18 23:45 | PN ---
Progress Note, Physician - Current Medication List Current Medications: Active Medications Diphenhydramine HCl (Benadryl -) 50 mg PO Q6H PRN PRN Reason: ITCHING Last Admin: 04/18/18 12:59 Dose: 50 mg Heparin Sodium (Porcine) (Heparin -) 5,000 unit SQ BID [facility] Last Admin: 04/18/18 21:05 Dose: 5,000 unit Dextrose/Sodium Chloride (D5-1/2ns -) 1,000 mls @ 75 mls/hr IV ASDIR [facility] Last Admin: 04/18/18 18:01 Dose: Not Given Morphine Sulfate (Morphine Sulfate) 2 mg IVPUSH Q4H PRN PRN Reason: PAIN LEVEL 4 - 6 Last Admin: 04/18/18 21:05 Dose: 2 mg Ondansetron HCl (Zofran Injection) 4 mg IVPUSH Q6H PRN PRN Reason: NAUSEA AND/OR VOMITING Last Admin: 04/18/18 09:00 Dose: 4 mg Pantoprazole Sodium (Protonix -) 40 mg PO DAILY [facility] Last Admin: 04/18/18 09:01 Dose: 40 mg Sucralfate (Carafate -) 1 gm PO QID [facility] Last Admin: 04/18/18 21:05 Dose: 1 gm - Objective Vital Signs: Vital Signs Temperature 98.0 F 04/18/18 14:00 Pulse Rate 71 04/18/18 14:00 Respiratory Rate 20 04/18/18 14:00 Blood Pressure 132/75 04/18/18 14:00 O2 Sat by Pulse Oximetry (%) 98 04/18/18 08:47 Labs: CBC, BMP 04/18/18 06:20 04/18/18 06:20
[2018-04-19] MEDS: ONDANSETRON 4 MG/2 ML VIAL IVPUSH PRN (01:11)
[2018-04-19] MEDS: MORPHINE SULFATE 2 MG/ML VIAL IVPUSH PRN ×3 (02:45→20:59)
[2018-04-19] MEDS: DEXTROSE 5%-0.45% SALINE 1,000 ML IV SCH ×2 (06:14→17:31)
[2018-04-19 07:57] LABS: BASO % 0.4 % (0-2.0); EOS % 3.5 % (0-4.5); HEMATOCRIT 40.6 % (32.4-45.2); HEMOGLOBIN 13.6 GM/dL (10.7-15.3); LYMPH % 33.5 % (8-40); MCH 28.5 pg (25.7-33.7); MCHC 33.6 g/dl (32.0-36.0); MEAN CELL VOLUME 84.9 fl (80-96); MEAN PLT VOLUME 7.8 fl (7.5-11.1); MONO % 7.7 % (3.8-10.2); NEUT % 54.9 % (42.8-82.8); PLATELET COUNT 264 K/MM3 (134-434); RBC 4.78 M/mm3 (3.60-5.2); RDW 13.7 % (11.6-15.6); WHITE BLOOD COUNT 8.6 K/mm3 (4.0-10.0)
[2018-04-19 08:57] LABS: ALBUMIN 3.2 g/dl (3.4-5.0); ANION GAP 4 MMOL/L (8-16); BLOOD UREA NITROGEN 13 mg/dL (7-18); CALCIUM 8.6 mg/dL (8.5-10.1); CHLORIDE 104 mmol/L (98-107); CO2 30 mmol/L (21-32); GLUCOSE,RANDOM 99 mg/dL (74-106); POTASSIUM 4.2 mmol/L (3.5-5.1); SODIUM 138 mmol/L (136-145)
[2018-04-19 09:01] LABS: ALK PHOS 78 U/L (45-117); BILIRUBIN,TOTAL 0.7 mg/dL (0.2-1.0); CREATININE 0.7 mg/dL (0.55-1.02); SGOT/AST 19 U/L (15-37); SGPT/ALT 29 U/L (12-78); TOT PROT 6.3 g/dl (6.4-8.2)
[2018-04-19] MEDS: PANTOPRAZOLE 40 MG TABLET (FP) PO SCH (09:25)
[2018-04-19] MEDS: SUCRALFATE 1 GM TABLET (FP) PO SCH ×4 (09:25→21:00)
[2018-04-19] MEDS: HEPARIN NA (PORCINE) 5,000 UNITS/ML 1ML VIAL SQ SCH ×2 (09:27→20:59)
--- NOTE | 2018-04-19 19:49 | CONS ---
DATE OF CONSULTATION: DATE OF DICTATION: 04/19/2018 HISTORY OF PRESENT ILLNESS: The patient is a 42-year-old female with a past medical history of morbid obesity, reflux disease, diverticulitis, appendectomy and cholecystectomy. She states that she has been experiencing lower abdominal pain, nausea, reflux and loose bowel movements since . She states her last endoscopy was done approximately 7 years ago. She was found to have gastritis at that time. She has never had a colonoscopy. She has tried nwli-ydh-mydjrye medications without much improvement in her symptoms. Her last bowel movement, which was yesterday, was loose and watery with a greasy appearance. She states that she vomited bile this morning. She has not been able to tolerate much p.o. intake mostly secondary to fear of worsening her symptoms. She denies any melena, hematochezia, weight loss or hematemesis. She states she had a previous episode a couple of years ago which resolved on its own. She is currently taking PPI therapy. PAST MEDICAL AND SURGICAL HISTORY: Right hip surgery. Otherwise as listed in the HPI. HOME MEDICATIONS: These were reviewed. ALLERGIES: IODINE, SHELLFISH, TORADOL, EGGS, TRAMADOL. SOCIAL HISTORY: She occasionally smokes cigarettes. She does not drink alcohol or use drugs. REVIEW OF SYSTEMS: Negative except for pertinent positives listed in the HPI. PHYSICAL EXAMINATION: Vital signs: Temperature 97, pulse 65, respiratory rate 12, blood pressure 130/ 77, pulse oximetry 98% on room air. General: In no acute distress. HEENT: Anicteric sclerae. Cardiovascular: S1, S2. Regular rate and rhythm. Lungs: Bilaterally clear to auscultation. Abdomen: Tender to deep palpation in the lower abdomen without any rebound or guarding. Bowel sounds are present. Exam is limited secondary to her obesity. LABORATORIES: White blood cell count on admission was 10.7; currently 8.6. Hemoglobin 13, hematocrit 40. MCV 84. Platelet count 264. Sodium 138, potassium 4.2, BUN 13, hematocrit 0.7, AST 19, ALT 29, total bilirubin 0.7. Urinalysis with 1+ leukocyte esterase, 12 WBCs, 5 RBCs. She had a CT scan of the abdomen and pelvis without contrast which revealed diffuse fatty infiltration of the liver. No evidence for acute pathology within the abdomen or pelvis. IMPRESSION: Nausea, vomiting and crampy abdominal pain with associated diarrhea most likely secondary to an acute infectious etiology. Peptic ulcer disease / gastritis will also need to be excluded. I doubt her symptoms are biliary in origin considering her clinical presentation and the fact that she does not have a transaminitis. Lastly , functional etiology is included in the differential diagnosis. RECOMMENDATIONS: Stool culture & sudan stain to evaluate for malabsorption. PPI therapy. Agree with continuing antibiotics, short course of 5 days. Would also recommend starting anti-spasm therapy twice daily for symptomatic relief and tapering narcotics which may be worsening her current symptoms. She will need an upper endoscopy. This can be done as an outpatient once the acute process has resolved. The plan of care was explained in detail with the patient. She can be discharged once she tolerates full diet. She is scheduled to follow - up with me in the office next week . DO MABEL ULRICH/[id number] MTDD
[2018-04-19] MEDS ORDERED: PT OWN MED DRAWER 7, Y5N ONE (20:09)
[2018-04-19] MEDS: DICYCLOMINE HCL 10 MG CAPSULE PO SCH (21:00)
--- NOTE | 2018-04-19 23:43 | PN ---
Progress Note, Physician - Current Medication List Current Medications: Active Medications Dicyclomine HCl (Bentyl -) 10 mg PO BID ON LICENSE OF [facility] Last Admin: 04/19/18 21:00 Dose: 10 mg Diphenhydramine HCl (Benadryl -) 50 mg PO Q6H PRN PRN Reason: ITCHING Last Admin: 04/18/18 12:59 Dose: 50 mg Heparin Sodium (Porcine) (Heparin -) 5,000 unit SQ BID ON LICENSE OF [facility] Last Admin: 04/19/18 20:59 Dose: 5,000 unit Dextrose/Sodium Chloride (D5-1/2ns -) 1,000 mls @ 75 mls/hr IV ASDIR ON LICENSE OF [facility] Last Admin: 04/19/18 17:31 Dose: 75 mls/hr Morphine Sulfate (Morphine Sulfate) 2 mg IVPUSH Q4H PRN PRN Reason: PAIN LEVEL 4 - 6 Last Admin: 04/19/18 20:59 Dose: 2 mg Ondansetron HCl (Zofran Injection) 4 mg IVPUSH Q6H PRN PRN Reason: NAUSEA AND/OR VOMITING Last Admin: 04/19/18 01:11 Dose: 4 mg Pantoprazole Sodium (Protonix -) 40 mg PO DAILY ON LICENSE OF [facility] Last Admin: 04/19/18 09:25 Dose: 40 mg Sucralfate (Carafate -) 1 gm PO QID ON LICENSE OF [facility] Last Admin: 04/19/18 21:00 Dose: 1 gm - Objective Vital Signs: Vital Signs Temperature 98.3 F 04/19/18 18:00 Pulse Rate 70 04/19/18 18:00 Respiratory Rate 20 04/19/18 21:00 Blood Pressure 140/83 04/19/18 18:00 O2 Sat by Pulse Oximetry (%) 98 04/19/18 21:00 Labs: CBC, BMP 04/19/18 06:20 04/19/18 06:20
[2018-04-20] MEDS: MORPHINE SULFATE 2 MG/ML VIAL IVPUSH PRN ×4 (03:36→22:57)
[2018-04-20] MEDS ORDERED: PT OWN MED DRAWER 7, Y5N ONE ×2 (10:02→22:33)
[2018-04-20] MEDS: DEXTROSE 5%-0.45% SALINE 1,000 ML IV SCH (10:06)
[2018-04-20] MEDS: DICYCLOMINE HCL 10 MG CAPSULE PO SCH ×2 (10:07→22:57)
[2018-04-20] MEDS: SUCRALFATE 1 GM TABLET (FP) PO SCH ×4 (10:07→22:57)
[2018-04-20] MEDS: PANTOPRAZOLE 40 MG TABLET (FP) PO SCH (10:07)
[2018-04-20] MEDS: HEPARIN NA (PORCINE) 5,000 UNITS/ML 1ML VIAL SQ SCH ×2 (10:08→22:57)
[2018-04-20] MEDS ORDERED: MAG HYDROX/AL HYDROX/SIMETH 30 ML UNIT-DOSE CUP PO ONE (15:15)
--- NOTE | 2018-04-20 21:44 | PN ---
Progress Note, Physician History of Present Illness: Pt still complains of epigastric pain and states that when she eats she feels burning in her chest Pt states that she has had episodes of vomiting and I advised pt to saw nurse her vomitus Pt has nausea w/ decreased appetite - Current Medication List Current Medications: Active Medications Dicyclomine HCl (Bentyl -) 10 mg PO BID [facility] Last Admin: 04/20/18 10:07 Dose: 10 mg Diphenhydramine HCl (Benadryl -) 50 mg PO Q6H PRN PRN Reason: ITCHING Last Admin: 04/18/18 12:59 Dose: 50 mg Heparin Sodium (Porcine) (Heparin -) 5,000 unit SQ BID [facility] Last Admin: 04/20/18 10:08 Dose: 5,000 unit Dextrose/Sodium Chloride (D5-1/2ns -) 1,000 mls @ 75 mls/hr IV ASDIR [facility] Last Admin: 04/20/18 10:06 Dose: 75 mls/hr Morphine Sulfate (Morphine Sulfate) 2 mg IVPUSH Q4H PRN PRN Reason: PAIN LEVEL 4 - 6 Last Admin: 04/20/18 14:03 Dose: 2 mg Ondansetron HCl (Zofran Injection) 4 mg IVPUSH Q6H PRN PRN Reason: NAUSEA AND/OR VOMITING Last Admin: 04/19/18 01:11 Dose: 4 mg Pantoprazole Sodium (Protonix -) 40 mg PO DAILY [facility] Last Admin: 04/20/18 10:07 Dose: 40 mg Sucralfate (Carafate -) 1 gm PO QID [facility] Last Admin: 04/20/18 17:20 Dose: 1 gm - Objective Vital Signs: Vital Signs Temperature 98.3 F 04/20/18 10:31 Pulse Rate 68 04/20/18 10:31 Respiratory Rate 20 04/20/18 10:31 Blood Pressure 139/83 04/20/18 10:31 O2 Sat by Pulse Oximetry (%) 98 04/20/18 09:00 Neck: Yes: WNL, Supple Cardiovascular: Yes: WNL, Regular Rate and Rhythm Respiratory: Yes: WNL, Regular, CTA Bilaterally Gastrointestinal: Yes: Normal Bowel Sounds, Other ((+) epigastric tenderness on palpation) Labs: CBC, BMP 04/19/18 06:20 04/19/18 06:20 Problem List - Problems (1) Abdominal pain Assessment/Plan: Abdominal US showed fatty liver vs hepatocellular dz Pt unable to tolerate MRI of liver today due to anxiety Will order clonazepam and attempt to repeat MRI in am GI reconsulted Cont protonix/carafate/bentyl Code(s): R10.9 - UNSPECIFIED ABDOMINAL PAIN Qualifiers: Abdominal location: unspecified location Qualified Code(s): R10.9 - Unspecified abdominal pain (2) Anxiety Assessment/Plan: Cont clonazepam Code(s): F41.9 - ANXIETY DISORDER, UNSPECIFIED (3) Morbid obesity Code(s): E66.01 - MORBID (SEVERE) OBESITY DUE TO EXCESS CALORIES
[2018-04-21] MEDS: DEXTROSE 5%-0.45% SALINE 1,000 ML IV SCH ×3 (03:18→21:26)
--- NOTE | 2018-04-21 08:32 | PN ---
Progress Note (short form) - Note Progress Note: This patient was seen by Dr. Cordon on 04/19. Please reconsult her. Thank you. Problem List - Problems (1) Left lower quadrant abdominal pain of unknown etiology Code(s): R10.32 - LEFT LOWER QUADRANT PAIN (2) Diverticulosis Code(s): K57.90 - DVRTCLOS OF INTEST, PART UNSP, W/O PERF OR ABSCESS W/O BLEED (3) History of cholecystectomy Code(s): Z90.49 - ACQUIRED ABSENCE OF OTHER SPECIFIED PARTS OF DIGESTIVE TRACT (4) GERD (gastroesophageal reflux disease) Code(s): K21.9 - GASTRO-ESOPHAGEAL REFLUX DISEASE WITHOUT ESOPHAGITIS (5) Fatty liver Code(s): K76.0 - FATTY (CHANGE OF) LIVER, NOT ELSEWHERE CLASSIFIED (6) Fatty liver Code(s): K76.0 - FATTY (CHANGE OF) LIVER, NOT ELSEWHERE CLASSIFIED
[2018-04-21] MEDS ORDERED: PT OWN MED DRAWER 7, Y5N ONE ×2 (09:32→21:23)
[2018-04-21] MEDS: HEPARIN NA (PORCINE) 5,000 UNITS/ML 1ML VIAL SQ SCH ×2 (09:37→23:00)
[2018-04-21] MEDS: PANTOPRAZOLE 40 MG TABLET (FP) PO SCH (09:37)
[2018-04-21] MEDS: DICYCLOMINE HCL 10 MG CAPSULE PO SCH ×2 (09:37→23:00)
[2018-04-21] MEDS: SUCRALFATE 1 GM TABLET (FP) PO SCH ×4 (09:37→23:00)
[2018-04-21] MEDS: MORPHINE SULFATE 2 MG/ML VIAL IVPUSH PRN (09:38)
--- NOTE | 2018-04-21 13:24 | DS ---
Physical Exam: SUBJECTIVE: Patient seen and examined at bedside. OBJECTIVE: Vital Signs Period Temp Pulse Resp BP Sys/Ojeda Pulse Ox Last 24 Hr 98.1 F-98.2 F 71-76 20-20 135-152/77-81 96-98 PHYSICAL EXAM GENERAL: The patient is awake, alert, and fully oriented, in no acute distress. LUNGS: Breath sounds equal, clear to auscultation bilaterally, no wheezes, no crackles, no accessory muscle use. HEART: Regular rate and rhythm, S1, S2 ABDOMEN: Soft, nontender, nondistended EXTREMITIES: 2+ pulses, warm, well-perfused, no edema. NEUROLOGICAL: Cranial nerves II through XII grossly intact. Normal speech, gait not observed. LABS CBCD WBC 8.6 K/mm3 (4.0-10.0) 04/19/18 06:20 RBC 4.78 M/mm3 (3.60-5.2) 04/19/18 06:20 Hgb 13.6 GM/dL (10.7-15.3) 04/19/18 06:20 Hct 40.6 % (32.4-45.2) 04/19/18 06:20 MCV 84.9 fl (80-96) 04/19/18 06:20 MCHC 33.6 g/dl (32.0-36.0) 04/19/18 06:20 RDW 13.7 % (11.6-15.6) 04/19/18 06:20 Plt Count 264 K/MM3 (134-434) 04/19/18 06:20 MPV 7.8 fl (7.5-11.1) 04/19/18 06:20 CMP Sodium 138 mmol/L (136-145) 04/19/18 06:20 Potassium 4.2 mmol/L (3.5-5.1) 04/19/18 06:20 Chloride 104 mmol/L (98-107) 04/19/18 06:20 Carbon Dioxide 30 mmol/L (21-32) 04/19/18 06:20 Anion Gap 4 MMOL/L (8-16) L 04/19/18 06:20 BUN 13 mg/dL (7-18) 04/19/18 06:20 Creatinine 0.7 mg/dL (0.55-1.02) 04/19/18 06:20 Creat Clearance w eGFR > 60 (>60) 04/19/18 06:20 Calcium 8.6 mg/dL (8.5-10.1) 04/19/18 06:20 Total Bilirubin 0.7 mg/dL (0.2-1.0) 04/19/18 06:20 AST 19 U/L (15-37) 04/19/18 06:20 ALT 29 U/L (12-78) 04/19/18 06:20 Alkaline Phosphatase 78 U/L (45-117) 04/19/18 06:20 Total Protein 6.3 g/dl (6.4-8.2) L 04/19/18 06:20 Albumin 3.2 g/dl (3.4-5.0) L 04/19/18 06:20 HOSPITAL COURSE: Date of Admission:04/17/18 Date of Discharge: 04/21/18 This is a 42 year-old female with a PMH significant for morbid obesity, reflux disease, diverticulitis, s/p appendectomy, and s/p cholecystecomy. Presented with complaints of diffuse abdominal pain and nausea. She had been experiencing diarrhea but that resolved. She denied vomiting. She denied fever, sweats, chills. Patient was afebrile and WBC was wnl throughout hospital stay. Abdominal US showed fatty liver. CTAP also revealed fatty liver with no evidence of acute pathology within the abdomen or pelvis. Patient was seen and evaluated by washer off Dr. Forrest who recommended empiric antibiotic therapy for a possible mild diverticulitis with outpatient followup. During the hospital stay patient also seen by washer off Dr. Cordon who made the same recommendations. Patient has an appointment on 04/[address] Cordon's office and she is tentatively scheduled for EGD on 04/26. Patient discharged with prescriptions for metronidazole and levofloxacin to complete another 5 days of treatment. Minutes to complete discharge: 35 Discharge Summary Reason For Visit: ABDOMINAL PAIN Current Active Problems Abdominal pain (Acute) Anxiety (Acute) Diverticulosis (Acute) Fatty liver (Acute) Fatty liver (Acute) GERD (gastroesophageal reflux disease) (Acute) History of cholecystectomy (Acute) Left lower quadrant abdominal pain of unknown etiology (Acute) Morbid obesity (Acute) Condition: Improved - Instructions Diet, Activity, Other Instructions: Two prescriptions have been sent to your pharmacy, metronidazole and levofloxacin. Take these medications as directed and be sure to finish all the medication. You are scheduled to follow up with Dr. Cordon on Tuesday at 2:00pm at her office at [address] [place] [address]. DO NOT TAKE aspirin, motrin, ibuprofen, naproxyn, Alleve or any other aspirin- containing product or NSAIDs. Return to the emergency department for any new or worsening symptoms. Referrals: Chelsie Cordon DO [Staff Physician] - 04/24/18 2:00 pm Haris Menjivar MD [Primary Care Provider] - Disposition: HOME - Home Medications Comprehensive Discharge Medication List: Ambulatory Orders Esomeprazole Magnesium [Nexium 24Hr] 40 mg PO DAILY 09/17/16 Levofloxacin [Levaquin] 500 mg PO DAILY #5 tablet 04/21/18 metroNIDAZOLE [Metronidazole] 500 mg PO TID #15 tablet 04/21/18 This patient is new to me today: Yes Date on this admission: 04/21/18 Emergency Visit: Yes ED Registration Date: 04/17/18 Care time: The patient presented to the Emergency Department on the above date and was hospitalized for further evaluation of their emergent condition. Critical Care patient: No - Discharge Referral Referred to [facility] No
[2018-04-21] MEDS ORDERED: ACETAMINOPHEN 325 MG TABLET (FP) PO PRN (16:50)
[2018-04-21] MEDS: traMADol HCL 50 MG TABLET PO PRN ×2 (17:03→22:59)
[2018-04-22] MEDS ORDERED: PT OWN MED DRAWER 7, Y5N ONE (08:45)
[2018-04-22] MEDS: SUCRALFATE 1 GM TABLET (FP) PO SCH ×3 (08:59→17:00)
[2018-04-22] MEDS: HEPARIN NA (PORCINE) 5,000 UNITS/ML 1ML VIAL SQ SCH (08:59)
[2018-04-22] MEDS: PANTOPRAZOLE 40 MG TABLET (FP) PO SCH (08:59)
[2018-04-22] MEDS: DICYCLOMINE HCL 10 MG CAPSULE PO SCH (08:59)
[2018-04-22] MEDS: traMADol HCL 50 MG TABLET PO PRN (09:09)
[2018-04-22] MEDS: DEXTROSE 5%-0.45% SALINE 1,000 ML IV SCH (09:14)
[2018-04-22] MEDS ORDERED: ONDANSETRON 4 MG TABLET PO PRN (13:03)
[2018-04-22 19:00] VITALS: BP 114/61; PULSE 73; TEMP 98.1
== END 2018-04-22 20:21 | disposition home or self-care (01) | DRG 244 ==
LOC: JER 01:39 → JERBED 10:42 → OBSVTOIN 17:52 → J6S 18:47
PROVIDERS: ADMIT Internal Medicine; ATTEND Internal Medicine
DX: K57.90 Diverticulosis of intestine, part unspecified, without perforation or abscess without bleeding (principal); R10.32 Left lower quadrant pain; K21.9 Gastro-esophageal reflux disease without esophagitis; E66.01 Morbid (severe) obesity due to excess calories; Z68.42 Body mass index [BMI] 45.0-49.9, adult; Z87.442 Personal history of urinary calculi; F17.210 Nicotine dependence, cigarettes, uncomplicated; Z90.49 Acquired absence of other specified parts of digestive tract; K76.0 Fatty (change of) liver, not elsewhere classified; F41.9 Anxiety disorder, unspecified; D72.829 Elevated white blood cell count, unspecified; Z96.641 Presence of right artificial hip joint
CPT/HCPCS: 36415; 74176-TC; 76700-TC; 76830-TC; 80053; 81003; 81015; 83690; 83735; 84100; 84703; 85025; 99283-25; G0378; J0131; J1644; Q0162

== ENCOUNTER 2018-05-03 09:31 | Day surgery (SDC) | payer OTHER ==
[2018-04-28 16:37] VITALS: BMI 51.5
[2018-05-03] MEDS ORDERED: LIDOCAINE HCL/PF 2% SDV 5ML VIAL ONE (10:27)
[2018-05-03] MEDS ORDERED: PROPOFOL 20 ML ONE (10:27)
[2018-05-03 11:29] VITALS: TEMP 97.7
[2018-05-03 11:32] VITALS: BP 122/89; PULSE 77
[2018-05-03] MEDS ORDERED: FAMOTIDINE 20 MG TABLET PO ONE (11:45)
[2018-05-03] MEDS ORDERED: SIMETHICONE 80 MG TAB.CHEW (FP) PO ONE (11:45)
--- NOTE | 2018-05-05 11:59 | PATH ---
Surgical Pathology Report Patient Name: [facility]ERNER [facility]. Rec. #: [id number] /Age/Gender: 1975 (Age: 42) / F Account: [id number] Location: [facility] AMBULATORY Taken: 05/03/2018 Received: 05/03/2018 Reported: 05/05/2018 Physicians: Chelsie Corodn M.D. Specimen(s) Received A: DUODENUM B: ANTRUM C: GE JUNCTION Clinical History Duodenitis, gastritis, mild reflux, r/o Chowdhury's Final Diagnosis A. DUODENUM, BIOPSY: MILD CHRONIC DUODENITIS. B. ANTRUM, BIOPSY: MILD CHRONIC GASTRITIS. IMMUNOSTAIN IS NEGATIVE FOR H. PYLORI ORGANISMS. C. GE JUNCTION, BIOPSY: ESOPHAGOGASTRIC (SQUAMOCOLUMNAR) MUCOSA SHOWING MILD CHRONIC INFLAMMATION. NEGATIVE FOR INTESTINAL METAPLASIA. Electronically Signed Sophie Perez M.D. Gross Description A. Received in formalin, labeled "duodenum" is one piece of daugherty tissue measuring 0.4 cm in greatest dimension. Entirely submitted one cassette. B. Received in formalin, labeled "antrum" are two pieces of daugherty tissue measuring 0.3 and 0.6 cm in greatest dimension. Entirely submitted one cassette. C. Received in formalin, labeled "GE junction" is one piece of daugherty tissue measuring 0.4 cm in greatest dimension. Entirely submitted one cassette. ebram/05/03/2018
== END 2018-05-03 11:40 | disposition home or self-care (01) ==
LOC: FASU-ENDO 09:31
PROVIDERS: ATTEND Internal Medicine Gastroenterology
PROC: 0DB48ZX Excision of Esophagogastric Junction, Via Natural or Artificial Opening Endoscopic, Diagnostic (ICD-10-PCS; 2018-05-03)
PROC: 0DB98ZX Excision of Duodenum, Via Natural or Artificial Opening Endoscopic, Diagnostic (ICD-10-PCS; principal; 2018-05-03 10:32)
PROC: 0DB68ZX Excision of Stomach, Via Natural or Artificial Opening Endoscopic, Diagnostic (ICD-10-PCS; 2018-05-03 10:32)
DX: K29.80 Duodenitis without bleeding (principal); K29.50 Unspecified chronic gastritis without bleeding; K20.9 Esophagitis, unspecified; R10.9 Unspecified abdominal pain; R11.2 Nausea with vomiting, unspecified
CPT/HCPCS: 84703; 88305-TC; 88342-TC

== ENCOUNTER 2018-07-24 17:28 | Emergency (ER) | payer OTHER ==
--- NOTE | 2018-07-24 18:10 | PDOC ---
Rapid Medical Evaluation Chief Complaint: Respiratory Time Seen by Provider: 07/24/18 18:08 Medical Evaluation: Allergies Allergy/AdvReac Type Severity Reaction Status Date / Time iodine Allergy Severe Difficulty Verified 05/03/18 09:45 Breathing Shellfish Allergy Severe Difficulty Verified 05/03/18 09:45 Breathing tramadol AdvReac Severe headache Verified 05/03/18 09:45 07/24/18 18:09 I have performed a brief in-person evaluation of this patient. The patient presents with a chief complaint of:cough with fevers x 5 days , sent by [facility], no relief after 3 treatments at home , + dysuria x 2 days Pertinent physical exam findings: mild flank pain / mild diminshed BS/ freq moist cough. I have ordered the following: UA/ UCx/ CXR The patient will proceed to the ED for further evaluation. 07/24/18 18:12 Discharge Disposition - Referrals Referrals: Wang Lange MD [Primary Care Provider] - - Patient Instructions - Post Discharge Activity
[2018-07-24 18:13] VITALS: BP 131/65; PULSE 91; TEMP 97.9; BMI 50.7
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
[2018-07-24] MEDS ORDERED: ALBUTEROL SO4 2.5/IPRATROPIUM 0.5 INH SOL 3 ML VIAL.NEB. NEB ONE ×4 (19:00→20:07)
--- NOTE | 2018-07-24 19:08 | PDOC ---
Attending Attestation - HPI HPI: 07/24/18 20:39 The patient is a 43 year old female, with a significant past medical history of GERD, diverticulitis and morbid obesity, who presents to the emergency department with intermittent fevers, nasal congestion and dry cough for the past 5 days. The patient additionally reports shortness of breath and pleuritic chest pain. She also states that she has been experiencing a popping sensation in her ears which is associated with some dizziness. The patient denies headache, sore throat, nausea, vomiting or diarrhea. Allergies: Iodine; Shellfish; Tramadol. Past Surgical History: Appendectomy; Cholecystectomy; Tubal Ligation; Hip Surgery Social History: Former smoker. Denies alcohol or drug use. Documentation prepared by Mimi Hernandez, acting as healthcare or medical for Hui Fitch MD. <Mimi Hassan - Last Filed: 07/24/18 20:41> - Resident Resident Name: Napoleon Walters - ED Attending Attestation I have performed the following: I have examined & evaluated the patient, The case was reviewed & discussed with the resident, I agree w/resident's findings & plan, Exceptions are as noted - HPI HPI: 07/24/18 19:42 43 yo morbidly obese female p/w 5 days of dry cough and c/o shortness of breath. head ncat nares + rhinorrhea neck supple lungs scattered wheezing cvs [id number] abd protuberant ext no deformities,no edema skin warm and dry neuro axox3,ambulatory psych appropriate 07/24/18 19:53 - Physicial Exam PE: 07/25/18 02:12 please see above physical exam - Medical Decision Making 07/24/18 19:07 43 yo female p/w shortness of breath ekg is NSR @ 83 bpm,normal QTc 07/24/18 23:06 pt had some scattered wheezing that resolved with bronchodilators. She does have both nebulizer and MDIs at home. She has nasal congestion and is requesting cough syrup pt feels much better after the tylenol imp URI,asthma exacerbation <Hui Fitch - Last Filed: 07/25/18 02:12>
[2018-07-24 19:21] LABS: BASO % 0.5 % (0-2.0); HEMATOCRIT 40.6 % (32.4-45.2); LYMPH % 30.2 % (8-40); MCH 29.3 pg (25.7-33.7); MCHC 34.6 g/dl (32.0-36.0); MEAN CELL VOLUME 84.8 fl (80-96); MONO % 11.2 % (3.8-10.2); NEUT % 56.1 % (42.8-82.8); PLATELET COUNT 263 K/MM3 (134-434); RBC 4.79 M/mm3 (3.60-5.2); RDW 13.9 % (11.6-15.6); WHITE BLOOD COUNT 8.9 K/mm3 (4.0-10.0)
[2018-07-24] MEDS ORDERED: predniSONE 20 MG TABLET (UD) PO ONE (19:51)
[2018-07-24] MEDS ORDERED: ACETAMINOPHEN 1000 MG/100 ML VIAL (NON FORMULARY) IVPB ONE (19:56)
[2018-07-24] MEDS ORDERED: SODIUM CHLORIDE 1,000 ML IV STA (19:57)
[2018-07-24] MEDS ORDERED: ACETAMINOPHEN INJECTION 100 ML IVPB ONE (20:07)
[2018-07-24] MEDS ORDERED: predniSONE 20 MG TABLET (UD) ONE (20:07)
[2018-07-24 20:42] LABS: ALBUMIN 3.6 g/dl (3.4-5.0); ALK PHOS 85 U/L (45-117); ANION GAP 8 MMOL/L (8-16); BILIRUBIN,TOTAL 0.5 mg/dL (0.2-1); BLOOD UREA NITROGEN 15 mg/dL (7-18); CALCIUM 8.8 mg/dL (8.5-10.1); CHLORIDE 105 mmol/L (98-107); CO2 26 mmol/L (21-32); CREATININE 0.9 mg/dL (0.55-1.3); GLUCOSE,RANDOM 96 mg/dL (74-106); POTASSIUM 4.1 mmol/L (3.5-5.1); SGOT/AST 22 U/L (15-37); SGPT/ALT 32 U/L (13-61); SODIUM 139 mmol/L (136-145); TOT PROT 7.1 g/dl (6.4-8.2)
[2018-07-24 22:40] LABS: URINE APPEARANCE CLEAR; URINE BILIRUBIN NEGATIVE (<2.0 mg/dL); URINE COLOR STRAW; URINE GLUCOSE (UA) NEGATIVE (NEGATIVE); URINE KETONE NEGATIVE (NEGATIVE); URINE LEUK ESTERASE NEGATIVE (NEGATIVE); URINE NITRITE NEGATIVE (NEGATIVE); URINE PROTEIN NEGATIVE (NEGATIVE); URINE UROBILINOGEN NEGATIVE mg/dL (0.2-1.0)
[2018-07-24] MEDS ORDERED: PSEUDOEPHEDRINE HCL 60 MG TABLET PO ONE (23:06)
[2018-07-24] MEDS ORDERED: PSEUDOEPHEDRINE HCL 60 MG TABLET ONE (23:35)
[2018-07-24] MEDS ORDERED: FLUTICASONE PROP 0.05% 16 GM NASAL SPRAY NS ONE (23:43)
--- NOTE | 2018-07-25 16:27 | EKG ---
Test Reason : Blood Pressure : / mmHG Vent. Rate : 083 BPM Atrial Rate : 083 BPM P-R Int : 138 ms QRS Dur : 078 ms QT Int : 364 ms P-R-T Axes : 030 049 050 degrees QTc Int : 427 ms NORMAL SINUS RHYTHM NORMAL ECG Confirmed by MD LAIRD GREGORY ([id number]) on 07/25/2018 4:27:24 PM Referred By: Confirmed By:ION LAIRD MD
== END 2018-07-24 23:53 | disposition home or self-care (01) ==
LOC: JER 17:28
PROC: 3E0F7GC Introduction of Other Therapeutic Substance into Respiratory Tract, Via Natural or Artificial Opening (ICD-10-PCS; principal; 2018-07-24)
PROC: 3E033NZ Introduction of Analgesics, Hypnotics, Sedatives into Peripheral Vein, Percutaneous Approach (ICD-10-PCS; 2018-07-24)
PROC: 3E0337Z Introduction of Electrolytic and Water Balance Substance into Peripheral Vein, Percutaneous Approach (ICD-10-PCS; 2018-07-24)
DX: B34.9 Viral infection, unspecified (principal)
CPT/HCPCS: 36415; 71046-TC-FY; 80053; 81003; 84484; 85025; 87070; 87086; 87804; 87880; 93005; 93010; 99282-25; J0131; J7030

== ENCOUNTER 2018-09-18 19:52 | Emergency (ER) | payer OTHER ==
[2018-09-18 20:42] VITALS: BP 137/88; PULSE 94; TEMP 98; BMI 53.2
--- NOTE | 2018-09-18 20:43 | PDOC ---
Rapid Medical Evaluation Medical Evaluation: Allergies Allergy/AdvReac Type Severity Reaction Status Date / Time iodine Allergy Severe Difficulty Verified 07/24/18 22:02 Breathing Shellfish Allergy Severe Difficulty Verified 07/24/18 22:02 Breathing tramadol AdvReac Severe headache Verified 07/24/18 22:02 I have performed a brief in-person evaluation of this patient. 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 09/18/18 20:37
[2018-09-18 22:25] LABS: BASO % 0.7 % (0-2.0); EOS % 1.8 % (0-4.5); HEMATOCRIT 41.7 % (32.4-45.2); HEMOGLOBIN 14.5 GM/dL (10.7-15.3); LYMPH % 29.2 % (8-40); MCHC 34.8 g/dl (32.0-36.0); MEAN CELL VOLUME 86.3 fl (80-96); MEAN PLT VOLUME 8.2 fl (7.5-11.1); MONO % 6.9 % (3.8-10.2); NEUT % 61.4 % (42.8-82.8); PLATELET COUNT 327 K/MM3 (134-434); RBC 4.84 M/mm3 (3.60-5.2); RDW 14.3 % (11.6-15.6); WHITE BLOOD COUNT 10.4 K/mm3 (4.0-10.0)
[2018-09-18 22:48] LABS: ANION GAP 9 MMOL/L (8-16); BLOOD UREA NITROGEN 18 mg/dL (7-18); CALCIUM 9.2 mg/dL (8.5-10.1); CHLORIDE 103 mmol/L (98-107); CO2 28 mmol/L (21-32); GLUCOSE,RANDOM 103 mg/dL (74-106); POTASSIUM 4.4 mmol/L (3.5-5.1); SODIUM 140 mmol/L (136-145)
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
--- NOTE | 2018-09-18 23:42 | PDOC ---
Attending Attestation - Resident Resident Name: Jessi Bell - ED Attending Attestation I have performed the following: I have examined & evaluated the patient, The case was reviewed & discussed with the resident, I agree w/resident's findings & plan - HPI HPI: 09/19/18 00:28 43-year-old female with self-reported history of uterine fibroids and possible endometriosis now with what she describes as severe pelvic cramping radiating to the back. - Physicial Exam PE: 09/19/18 00:29 Agree with resident's exam - Medical Decision Making 09/19/18 00:29 43-year-old female with severe pelvic cramping Ultrasound to rule out ovarian pathology with plans for discharge home and [facility] follow-up
[2018-09-19] MEDS ORDERED: KETOROLAC TROMETHAMINE 30 MG/1 ML VIAL IVPUSH ONE (00:12)
[2018-09-19] MEDS ORDERED: KETOROLAC TROMETHAMINE 30 MG/1 ML VIAL ONE (00:40)
[2018-09-19 01:16] LABS: URINE APPEARANCE CLEAR; URINE BILIRUBIN NEGATIVE (<2.0 mg/dL); URINE COLOR YELLOW; URINE GLUCOSE (UA) NEGATIVE (NEGATIVE); URINE KETONE NEGATIVE (NEGATIVE); URINE LEUK ESTERASE 1+ (NEGATIVE); URINE NITRITE NEGATIVE (NEGATIVE); URINE PROTEIN 1+ (NEGATIVE)
[2018-09-19 01:22] LABS: EPI CELLS FEW /HPF (FEW); URINE MUCUS MANY
== END 2018-09-19 03:23 | disposition home or self-care (01) ==
LOC: JER 19:52
PROC: 3E0333Z Introduction of Anti-inflammatory into Peripheral Vein, Percutaneous Approach (ICD-10-PCS; principal; 2018-09-18)
DX: N93.8 Other specified abnormal uterine and vaginal bleeding (principal); Z87.42 Personal history of other diseases of the female genital tract; Z87.19 Personal history of other diseases of the digestive system; E66.01 Morbid (severe) obesity due to excess calories; Z68.43 Body mass index [BMI] 50.0-59.9, adult; Z90.49 Acquired absence of other specified parts of digestive tract
CPT/HCPCS: 36415; 76830-TC; 80048; 81003; 81015; 84703; 85025; 86850; 86900; 86901; 96374; 99284-25

== ENCOUNTER 2019-01-25 16:52 | Emergency (ER) | payer OTHER ==
--- NOTE | 2019-01-25 17:13 | PDOC ---
Rapid Medical Evaluation Chief Complaint: Respiratory Time Seen by Provider: 01/25/19 17:07 Medical Evaluation: Allergies Allergy/AdvReac Type Severity Reaction Status Date / Time iodine Allergy Severe Difficulty Verified 07/24/18 22:02 Breathing Shellfish Allergy Severe Difficulty Verified 07/24/18 22:02 Breathing tramadol AdvReac Severe headache Verified 07/24/18 22:02 01/25/19 17:08 I have performed a brief in-person evaluation of this patient. The patient presents with a chief complaint of: persistant cough, no relief with symbacort, + fevers/ phlegm Dysuria x 3 days - took tylenol 1 hour before arrival Pertinent physical exam findings: pale/ sweating I have ordered the following: CXR/ UA/Cx The patient will proceed to the ED for further evaluation. 01/25/19 17:11 01/25/19 17:12 Discharge Disposition - Diagnosis Dysuria, Cough - Referrals - Patient Instructions - Post Discharge Activity
[2019-01-25 17:14] VITALS: BP 126/82; PULSE 87; TEMP 98.4; BMI 41.5
[2019-01-25] MEDS ORDERED: KETOROLAC TROMETHAMINE 30 MG/1 ML VIAL IM ONE (17:39)
[2019-01-25] MEDS ORDERED: predniSONE 20 MG TABLET (UD) PO ONE (17:39)
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
[2019-01-25] MEDS ORDERED: KETOROLAC TROMETHAMINE 30 MG/1 ML VIAL ONE (17:52)
[2019-01-25] MEDS ORDERED: ALBUTEROL SO4 2.5/IPRATROPIUM 0.5 INH SOL 3 ML VIAL.NEB. NEB ONE (17:52)
[2019-01-25] MEDS ORDERED: predniSONE 20 MG TABLET (UD) ONE (17:52)
[2019-01-25] MEDS: ALBUTEROL SO4 2.5/IPRATROPIUM 0.5 INH SOL 3 ML VIAL.NEB. NEB SCH ×2 (18:03→18:21)
[2019-01-25] MEDS ORDERED: levoFLOXacin 750 MG TABLET PO ONE (19:15)
[2019-01-25 19:22] LABS: PH,URINE 5.5 (5.0-8.0); URINE APPEARANCE CLEAR; URINE BILIRUBIN NEGATIVE (NEGATIVE); URINE COLOR YELLOW; URINE GLUCOSE (UA) NEGATIVE (NEGATIVE); URINE KETONE TRACE (NEGATIVE); URINE LEUK ESTERASE NEGATIVE (NEGATIVE); URINE NITRITE NEGATIVE (NEGATIVE); URINE PROTEIN NEGATIVE (NEGATIVE); URINE UROBILINOGEN 0.2 mg/dL (0.2-1.0)
== END 2019-01-25 19:57 | disposition home or self-care (01) ==
LOC: JERFT 16:52
PROC: 3E0233Z Introduction of Anti-inflammatory into Muscle, Percutaneous Approach (ICD-10-PCS; principal; 2019-01-25)
PROC: 3E0F7GC Introduction of Other Therapeutic Substance into Respiratory Tract, Via Natural or Artificial Opening (ICD-10-PCS; 2019-01-25)
DX: J45.21 Mild intermittent asthma with (acute) exacerbation (principal); R30.0 Dysuria; Z87.19 Personal history of other diseases of the digestive system; Z91.013 Allergy to seafood
CPT/HCPCS: 71046-TC-FY; 81003; 84703; 87086; 99283-25

== ENCOUNTER 2020-08-28 10:13 | Emergency (ER) | payer OTHER ==
[2020-08-28 10:46] VITALS: BMI 56.5
[2020-08-28] MEDS ORDERED: CLINDAMYCIN 600MG PREMIX IVPB 600 MG/50 ML BAG IVPB ONE ×2 (11:29→13:00)
[2020-08-28] MEDS ORDERED: ACETAMINOPHEN 1000 MG/100 ML VIAL (NON FORMULARY) IVPB ONE (11:29)
[2020-08-28] MEDS ORDERED: SODIUM CHLORIDE 1,000 ML IV STA (11:30)
[2020-08-28] MEDS ORDERED: ACETAMINOPHEN INJECTION 100 ML IVPB ONE (13:00)
[2020-08-28 13:47] LABS: BASO % 0.5 % (0-2.0); EOS % 2.1 % (0-4.5); HEMATOCRIT 41.2 % (32.4-45.2); HEMOGLOBIN 13.5 GM/dL (10.7-15.3); LYMPH % 24.5 % (8-40); MCH 26.6 pg (25.7-33.7); MCHC 32.8 g/dl (32.0-36.0); MEAN CELL VOLUME 81.3 fl (80-96); MEAN PLT VOLUME 8.2 fl (7.5-11.1); MONO % 6.5 % (3.8-10.2); NEUT % 66.4 % (42.8-82.8); PLATELET COUNT 329 K/MM3 (134-434); RBC 5.06 M/mm3 (3.60-5.2); RDW 14.5 % (11.6-15.6); WHITE BLOOD COUNT 12.3 K/mm3 (4.0-10.0)
[2020-08-28 13:53] LABS: INR 0.93 (0.83-1.09); PROTHROMBIN TIME (PATIENT) 11.3 SEC (9.7-13.0)
[2020-08-28 14:08] LABS: POTASSIUM 4.4 mmol/L (3.5-5.1)
[2020-08-28 14:11] LABS: BLOOD UREA NITROGEN 21.7 mg/dL (7-18); CALCIUM 9.4 mg/dL (8.5-10.1)
[2020-08-28 14:12] LABS: ALBUMIN 3.6 g/dl (3.4-5.0)
[2020-08-28] MEDS ORDERED: morphine CARPU-JECT 4 MG/1 ML DISP.SYRIN IVPUSH ONE ×2 (14:12→19:08)
[2020-08-28 14:17] LABS: BILIRUBIN,TOTAL 0.4 mg/dL (0.2-1); TOT PROT 7.4 g/dl (6.4-8.2)
[2020-08-28 14:19] LABS: CREATININE 0.8 mg/dL (0.55-1.3)
[2020-08-28] MEDS ORDERED: morphine SULFATE 4 MG/ML VIAL ONE ×2 (14:21→20:20)
[2020-08-28] MEDS ORDERED: methylPREDNISolone NA SUCC 125 MG/2 ML VIAL IVPUSH ONE (14:47)
[2020-08-28] MEDS ORDERED: methylPREDNISolone NA SUCC 125 MG/2 ML VIAL ONE (14:54)
[2020-08-28 17:29] LABS: URINE APPEARANCE CLEAR; URINE BILIRUBIN NEGATIVE (NEGATIVE); URINE COLOR YELLOW; URINE GLUCOSE (UA) NEGATIVE (NEGATIVE); URINE KETONE NEGATIVE (NEGATIVE); URINE LEUK ESTERASE NEGATIVE (NEGATIVE); URINE NITRITE NEGATIVE (NEGATIVE); URINE PROTEIN NEGATIVE (NEGATIVE); URINE UROBILINOGEN 0.2 mg/dL (0.2-1.0)
[2020-08-28 17:30] LABS: HCG,QUALITATIVE URINE Negative
[2020-08-29 07:26] VITALS: BP 147/78; PULSE 105; TEMP 99.4
== END 2020-08-28 21:18 | disposition short-term general hospital (02) ==
LOC: JERFT 10:13 → JER 10:13
PROC: 3E0333Z Introduction of Anti-inflammatory into Peripheral Vein, Percutaneous Approach (ICD-10-PCS; principal; 2020-08-28)
PROC: 3E03329 Introduction of Other Anti-infective into Peripheral Vein, Percutaneous Approach (ICD-10-PCS; 2020-08-28)
PROC: 3E033GC Introduction of Other Therapeutic Substance into Peripheral Vein, Percutaneous Approach (ICD-10-PCS; 2020-08-28)
PROC: 3E033GC Introduction of Other Therapeutic Substance into Peripheral Vein, Percutaneous Approach (ICD-10-PCS; 2020-08-28)
PROC: 3E033GC Introduction of Other Therapeutic Substance into Peripheral Vein, Percutaneous Approach (ICD-10-PCS; 2020-08-28)
PROC: 3E033NZ Introduction of Analgesics, Hypnotics, Sedatives into Peripheral Vein, Percutaneous Approach (ICD-10-PCS; 2020-08-28)
PROC: 3E033NZ Introduction of Analgesics, Hypnotics, Sedatives into Peripheral Vein, Percutaneous Approach (ICD-10-PCS; 2020-08-28)
PROC: 3E0337Z Introduction of Electrolytic and Water Balance Substance into Peripheral Vein, Percutaneous Approach (ICD-10-PCS; 2020-08-28)
DX: K91.89 Other postprocedural complications and disorders of digestive system (principal)
CPT/HCPCS: 36415; 70491-TC; 80053; 81003; 84703; 85025; 85610; 87086; 99285-25; J0131; Q9967

== ENCOUNTER 2020-10-31 14:04 | Emergency (ER) | payer OTHER ==
[2020-10-31 14:19] VITALS: TEMP 98.5; BMI 59.9
[2020-10-31 16:23] LABS: BASO % 1.1 % (0-2.0); EOS % 3.7 % (0-4.5); HEMATOCRIT 40.4 % (32.4-45.2); HEMOGLOBIN 13.1 GM/dL (10.7-15.3); LYMPH % 25.1 % (8-40); MCH 26.6 pg (25.7-33.7); MCHC 32.5 g/dl (32.0-36.0); MEAN CELL VOLUME 81.7 fl (80-96); MEAN PLT VOLUME 8.4 fl (7.5-11.1); NEUT % 63.1 % (42.8-82.8); PLATELET COUNT 313 K/MM3 (134-434); RBC 4.95 M/mm3 (3.60-5.2); RDW 15.4 % (11.6-15.6); WHITE BLOOD COUNT 10.6 K/mm3 (4.0-10.0)
[2020-10-31 16:34] LABS: PH,URINE 5.5 (5.0-8.0); URINE APPEARANCE Clear; URINE BILIRUBIN Negative (NEGATIVE); URINE COLOR Yellow; URINE GLUCOSE (UA) Negative (NEGATIVE); URINE KETONE Negative (NEGATIVE); URINE LEUK ESTERASE Negative (NEGATIVE); URINE NITRITE Negative (NEGATIVE); URINE PROTEIN Negative (NEGATIVE); URINE UROBILINOGEN 0.2 mg/dL (0.2-1.0)
[2020-10-31 16:39] LABS: GLUCOSE,RANDOM 78 mg/dL (74-106)
[2020-10-31 16:40] LABS: ALBUMIN 3.5 g/dl (3.4-5.0); ANION GAP 3 MMOL/L (8-16); BLOOD UREA NITROGEN 16.9 mg/dL (7-18); CALCIUM 9.1 mg/dL (8.5-10.1); CHLORIDE 104 mmol/L (98-107); CO2 29 mmol/L (21-32); POTASSIUM 7.7 mmol/L (3.5-5.1); SODIUM 135 mmol/L (136-145)
[2020-10-31 16:43] LABS: CREATININE 0.8 mg/dL (0.55-1.3); SGOT/AST 72 U/L (15-37)
[2020-10-31 16:44] LABS: LIPASE 109 U/L (73-393); TOT PROT 7.5 g/dl (6.4-8.2)
[2020-10-31 16:48] LABS: N-TERMINAL BNP 97.6 pg/ml (5-125)
[2020-10-31 16:49] LABS: ALK PHOS 103 U/L (45-117); SGPT/ALT 28 U/L (13-61)
[2020-10-31] MEDS ORDERED: SODIUM POLYSTYRENE SULFONATE 15 GM/60 ML BOTTLE PO ONE (16:51)
[2020-10-31] MEDS ORDERED: CALCIUM GLUCONATE 10% - 1,000 MG/10 ML VIAL IVPUSH ONE (16:52)
[2020-10-31] MEDS ORDERED: INSULIN REGULAR HUMAN 100 UNITS/ML *VIAL IVPUSH ONE ×2 (16:53)
[2020-10-31] MEDS ORDERED: SODIUM POLYSTYRENE SULFONATE 15 GM/60 ML BOTTLE ONE (16:54)
[2020-10-31] MEDS ORDERED: DEXTROSE 50%-WATER - 25 GM/50 ML VIAL IVPUSH ONE (16:54)
[2020-10-31] MEDS ORDERED: KETOROLAC TROMETHAMINE 30 MG/1 ML VIAL IVPUSH ONE (17:17)
[2020-10-31] MEDS ORDERED: KETOROLAC TROMETHAMINE 30 MG/1 ML VIAL ONE (18:11)
[2020-10-31] MEDS: ALBUTEROL SO4 0.083% IH SOL 2.5 MG/3 ML VIAL.NEB. NEB SCH ×2 (19:18→19:19)
[2020-10-31] MEDS ORDERED: methylPREDNISolone NA SUCC 40 MG/1 ML VIAL IVPUSH ONE (19:54)
[2020-10-31] MEDS ORDERED: methylPREDNISolone NA SUCC 40 MG/1 ML VIAL ONE (20:11)
[2020-10-31 23:39] VITALS: BP 122/76; PULSE 88
== END 2020-10-31 23:36 | disposition home or self-care (01) ==
LOC: JER 14:04
PROC: 3E033GC Introduction of Other Therapeutic Substance into Peripheral Vein, Percutaneous Approach (ICD-10-PCS; principal; 2020-10-31)
PROC: 3E033GC Introduction of Other Therapeutic Substance into Peripheral Vein, Percutaneous Approach (ICD-10-PCS; 2020-10-31)
PROC: 3E033GC Introduction of Other Therapeutic Substance into Peripheral Vein, Percutaneous Approach (ICD-10-PCS; 2020-10-31)
PROC: 3E033GC Introduction of Other Therapeutic Substance into Peripheral Vein, Percutaneous Approach (ICD-10-PCS; 2020-10-31)
DX: R06.02 Shortness of breath (principal); R60.9 Edema, unspecified; R35.0 Frequency of micturition
CPT/HCPCS: 36415; 71046-TC-FY; 71275-TC; 74177-TC; 80053; 81003; 82550; 82553; 83690; 83880; 84132; 84484; 85025; 87077; 87086; 93005; 93010; 93970-TC; 99285-25; Q9967

== ENCOUNTER 2020-12-16 00:40 | Observation (INO) | payer OTHER ==
[2020-12-16 01:43] LABS: BASO % 1.1 % (0-2.0); EOS % 0.8 % (0-4.5); HEMATOCRIT 40.5 % (32.4-45.2); HEMOGLOBIN 13.2 GM/dL (10.7-15.3); LYMPH % 16.9 % (8-40); MCH 26.5 pg (25.7-33.7); MCHC 32.5 g/dl (32.0-36.0); MEAN CELL VOLUME 81.5 fl (80-96); MEAN PLT VOLUME 8.4 fl (7.5-11.1); MONO % 7.8 % (3.8-10.2); NEUT % 73.4 % (42.8-82.8); PLATELET COUNT 376 K/MM3 (134-434); RBC 4.98 M/mm3 (3.60-5.2); RDW 15.6 % (11.6-15.6); WHITE BLOOD COUNT 16.3 K/mm3 (4.0-10.0)
[2020-12-16 02:01] LABS: BLOOD UREA NITROGEN 27.6 mg/dL (7-18)
[2020-12-16 02:02] LABS: ALBUMIN 3.3 g/dl (3.4-5.0)
[2020-12-16 02:04] LABS: CREATININE 1.4 mg/dL (0.55-1.3)
[2020-12-16 02:06] LABS: BILIRUBIN,TOTAL 0.6 mg/dL (0.2-1); TOT PROT 6.7 g/dl (6.4-8.2)
[2020-12-16 02:10] LABS: CALCIUM 8.6 mg/dL (8.5-10.1)
[2020-12-16] MEDS ORDERED: ACETAMINOPHEN 1000 MG/100 ML VIAL (NON FORMULARY) IVPB ONE ×2 (02:45→16:00)
[2020-12-16 02:46] LABS: INR 0.91 (0.83-1.09); PROTHROMBIN TIME (PATIENT) 11.2 SEC (9.7-13.0)
[2020-12-16 02:48] LABS: ACTIVATED PTT 31.1 SECONDS (25.2-36.5)
[2020-12-16] MEDS ORDERED: ACETAMINOPHEN INJECTION 100 ML IVPB ONE (02:48)
[2020-12-16 02:49] LABS: N-TERMINAL BNP 19.6 pg/ml (5-125)
[2020-12-16] MEDS ORDERED: SODIUM CHLORIDE 0.9% 500 ML INFUS.BAG IV ONE (03:58)
[2020-12-16 04:39] LABS: MAGNESIUM 2.2 mg/dL (1.8-2.4)
[2020-12-16] MEDS ORDERED: ACETAMINOPHEN 325 MG TABLET (FP) ONE (09:03)
[2020-12-16 11:24] LABS: CHOLESTEROL 145 mg/dL (50-200); TRIGLYCERIDES 104 mg/dL (0-150)
[2020-12-16 11:25] LABS: LDL CHOLESTEROL (ONLY SJRH) 78 mg/dL (5-100)
[2020-12-16 11:27] LABS: HDL CHOLESTEROL 49 mg/dL (40-60)
[2020-12-16 18:29] VITALS: BMI 61.2
[2020-12-16] MEDS: ACETAMINOPHEN 1000 MG/100 ML VIAL (NON FORMULARY) IVPB PRN (20:37)
[2020-12-16] MEDS: CYCLOBENZAPRINE HCL 10 MG TABLET (FP) PO SCH (22:04)
[2020-12-16] MEDS: ENOXAPARIN NA (PORCINE) 40 MG/0.4 ML DISP.SYRIN SQ SCH (22:04)
[2020-12-17] MEDS: ACETAMINOPHEN 1000 MG/100 ML VIAL (NON FORMULARY) IVPB PRN ×4 (02:29→22:34)
[2020-12-17] MEDS: CYCLOBENZAPRINE HCL 10 MG TABLET (FP) PO SCH ×3 (05:29→21:35)
[2020-12-17 07:22] LABS: BASO % 0.7 % (0-2.0); EOS % 2.1 % (0-4.5); HEMATOCRIT 42.1 % (32.4-45.2); HEMOGLOBIN 13.7 GM/dL (10.7-15.3); LYMPH % 22.4 % (8-40); MCH 26.7 pg (25.7-33.7); MCHC 32.4 g/dl (32.0-36.0); MEAN CELL VOLUME 82.3 fl (80-96); MEAN PLT VOLUME 8.2 fl (7.5-11.1); MONO % 7.9 % (3.8-10.2); NEUT % 66.9 % (42.8-82.8); PLATELET COUNT 322 K/MM3 (134-434); RBC 5.12 M/mm3 (3.60-5.2); RDW 15.4 % (11.6-15.6); WHITE BLOOD COUNT 11.7 K/mm3 (4.0-10.0)
[2020-12-17 07:49] LABS: BLOOD UREA NITROGEN 17.9 mg/dL (7-18); CALCIUM 8.8 mg/dL (8.5-10.1)
[2020-12-17 07:50] LABS: ALBUMIN 3.2 g/dl (3.4-5.0)
[2020-12-17 07:53] LABS: CREATININE 0.8 mg/dL (0.55-1.3)
[2020-12-17 07:54] LABS: BILIRUBIN,TOTAL 1.1 mg/dL (0.2-1); TOT PROT 6.8 g/dl (6.4-8.2)
[2020-12-17] MEDS: PANTOPRAZOLE 40 MG TABLET PO SCH (09:52)
[2020-12-17] MEDS: ENOXAPARIN NA (PORCINE) 40 MG/0.4 ML DISP.SYRIN SQ SCH (09:52)
[2020-12-17 19:20] LABS: URINE APPEARANCE CLEAR; URINE BILIRUBIN NEGATIVE (NEGATIVE); URINE COLOR YELLOW; URINE GLUCOSE (UA) NEGATIVE (NEGATIVE); URINE KETONE NEGATIVE (NEGATIVE); URINE LEUK ESTERASE NEGATIVE (NEGATIVE); URINE NITRITE NEGATIVE (NEGATIVE); URINE PROTEIN NEGATIVE (NEGATIVE); URINE UROBILINOGEN 0.2 mg/dL (0.2-1.0)
[2020-12-17] MEDS: GABAPENTIN 100 MG CAPSULE PO SCH (21:35)
[2020-12-18] MEDS: CYCLOBENZAPRINE HCL 10 MG TABLET (FP) PO SCH ×3 (05:23→21:08)
[2020-12-18] MEDS: GABAPENTIN 100 MG CAPSULE PO SCH ×3 (05:23→21:08)
[2020-12-18] MEDS: ACETAMINOPHEN 1000 MG/100 ML VIAL (NON FORMULARY) IVPB PRN ×2 (05:24→20:16)
[2020-12-18] MEDS: PANTOPRAZOLE 40 MG TABLET PO SCH (10:10)
[2020-12-18] MEDS: ENOXAPARIN NA (PORCINE) 40 MG/0.4 ML DISP.SYRIN SQ SCH (10:10)
[2020-12-19] MEDS: CYCLOBENZAPRINE HCL 10 MG TABLET (FP) PO SCH (05:39)
[2020-12-19] MEDS: GABAPENTIN 100 MG CAPSULE PO SCH (05:39)
[2020-12-19 07:44] VITALS: BP 135/90; PULSE 78; TEMP 98.1
[2020-12-19] MEDS ORDERED: ACETAMINOPHEN 1000 MG/100 ML VIAL (NON FORMULARY) IVPB ONE (09:00)
[2020-12-19] MEDS: ENOXAPARIN NA (PORCINE) 40 MG/0.4 ML DISP.SYRIN SQ SCH (10:58)
[2020-12-19] MEDS: PANTOPRAZOLE 40 MG TABLET PO SCH (10:58)
[2020-12-19] MEDS ORDERED: NAPROXEN 500 MG TABLET PO SCH (13:00)
== END 2020-12-19 12:35 | disposition home health service (06) ==
LOC: JER 00:40 → JERBED 02:58 → UNDOADMOB 02:58 → INTOOBSV 02:58 → JERBED 18:13 → J8W 18:13 → JERBED 12-17 09:47
PROVIDERS: ADMIT Internal Medicine; ATTEND Internal Medicine
PROC: 3E0337Z Introduction of Electrolytic and Water Balance Substance into Peripheral Vein, Percutaneous Approach (ICD-10-PCS; principal; 2020-12-17)
PROC: 3E023GC Introduction of Other Therapeutic Substance into Muscle, Percutaneous Approach (ICD-10-PCS; 2020-12-17)
PROC: 3E033GC Introduction of Other Therapeutic Substance into Peripheral Vein, Percutaneous Approach (ICD-10-PCS; 2020-12-17)
PROC: 3E033NZ Introduction of Analgesics, Hypnotics, Sedatives into Peripheral Vein, Percutaneous Approach (ICD-10-PCS; 2020-12-17)
DX: K57.90 Diverticulosis of intestine, part unspecified, without perforation or abscess without bleeding (principal); R25.2 Cramp and spasm; K76.0 Fatty (change of) liver, not elsewhere classified; R07.9 Chest pain, unspecified; K21.9 Gastro-esophageal reflux disease without esophagitis; E66.01 Morbid (severe) obesity due to excess calories; Z68.44 Body mass index [BMI] 60.0-69.9, adult; M54.9 Dorsalgia, unspecified; R10.9 Unspecified abdominal pain; B34.9 Viral infection, unspecified; J40 Bronchitis, not specified as acute or chronic; M54.12 Radiculopathy, cervical region; K59.01 Slow transit constipation; M71.20 Synovial cyst of popliteal space [Baker], unspecified knee; R05 Cough; K57.32 Diverticulitis of large intestine without perforation or abscess without bleeding; Z90.49 Acquired absence of other specified parts of digestive tract; K52.9 Noninfective gastroenteritis and colitis, unspecified; R51.9 Headache, unspecified; N20.0 Calculus of kidney; M25.562 Pain in left knee; M25.552 Pain in left hip; R10.32 Left lower quadrant pain; M54.5 Low back pain; R11.2 Nausea with vomiting, unspecified; Z23 Encounter for immunization; K11.20 Sialoadenitis, unspecified; Z88.8 Allergy status to other drugs, medicaments and biological substances; J02.9 Acute pharyngitis, unspecified; F41.9 Anxiety disorder, unspecified; Z91.013 Allergy to seafood; L08.9 Local infection of the skin and subcutaneous tissue, unspecified; M54.30 Sciatica, unspecified side; Z16.20 Resistance to unspecified antibiotic; G89.29 Other chronic pain; N93.9 Abnormal uterine and vaginal bleeding, unspecified
CPT/HCPCS: 36415; 71045-TC-FY; 80053; 80061; 81003; 82550; 82553; 83036; 83721; 83735; 83880; 84132; 84443; 84484; 85025; 85379; 85610; 85730; 87086; 93005; 93010; 93306-TC; 93970-TC; 93971-TC; 96361; 96372; 96374; 96375; 96376; 97116-GP; 97161-GP; 99285-25; C9803; G0378; J0131; U0003; U0005

== ENCOUNTER 2020-12-16 08:30 | Inpatient (IN) | payer OTHER ==
[2020-12-11 15:31] VITALS: BMI 58.2
[2020-12-23] MEDS ORDERED: BUPIVACAINE HCL/PF 0.5% (5MG/ML) 10 ML VIAL ONE (13:55)
[2020-12-23] MEDS ORDERED: SUCCINYLCHOLINE CHLORIDE 200 MG/10 ML SYRINGE ONE (13:59)
[2020-12-23] MEDS ORDERED: PROPOFOL 20 ML ONE ×2 (13:59)
[2020-12-23] MEDS ORDERED: fentaNYL CITRATE 250 MCG/5 ML VIAL ONE (13:59)
[2020-12-23] MEDS ORDERED: MIDAZOLAM HCL 2 MG/2 ML SINGLE DOSE VIAL ONE (13:59)
[2020-12-23] MEDS ORDERED: EPHEDRINE SULFATE/0.9% NACL/PF 50 MG/10 ML SYRINGE NR ONE (14:03)
[2020-12-23] MEDS ORDERED: ceFAZolin SODIUM 1 GM VIAL IVPB ONE (15:00)
[2020-12-23] MEDS ORDERED: ROCURONIUM BROMIDE 50 MG/5 ML SYRINGE ONE (15:26)
[2020-12-23] MEDS ORDERED: HYDROmorphone HCl 2 MG/ML VIAL ONE (15:27)
[2020-12-23] MEDS ORDERED: NEOSTIGMINE METHYLSULFATE 0.5 MG/ML - 10 ML MDV ONE (16:39)
[2020-12-23] MEDS ORDERED: GLYCOPYRROLATE 0.2 MG/1 ML VIAL ONE ×2 (16:40)
[2020-12-23] MEDS ORDERED: ceFAZolin SODIUM 1 GM VIAL ONE (16:40)
[2020-12-23] MEDS ORDERED: BUPIVACAINE HCL/PF 0.5% (5 MG/ML) 30 ML VIAL IJ ONE (17:15)
[2020-12-23] MEDS ORDERED: ONDANSETRON 4 MG/2 ML VIAL IVPUSH PRN ×2 (17:23→17:58)
[2020-12-23] MEDS ORDERED: HYDROmorphone HCl 2 MG/ML VIAL IVPB PRN (17:27)
[2020-12-23] MEDS ORDERED: PROMETHAZINE HCL 25 MG/1 ML VIAL IVPUSH PRN (17:58)
[2020-12-23] MEDS ORDERED: METOCLOPRAMIDE HCL INJECTION 10 MG/2 ML VIAL IVPUSH PRN (17:59)
[2020-12-23] MEDS ORDERED: ACETAMINOPHEN 1000 MG/100 ML VIAL (NON FORMULARY) IVPB PRN (18:00)
[2020-12-23] MEDS ORDERED: LACTATED RINGERS SOLUTION 1,000 ML IV SCH (18:00)
[2020-12-23] MEDS ORDERED: ACETAMINOPHEN INJECTION 100 ML IVPB ONE (18:10)
[2020-12-23] MEDS ORDERED: METOCLOPRAMIDE HCL INJECTION 10 MG/2 ML VIAL ONE (18:10)
[2020-12-23] MEDS: METOCLOPRAMIDE HCL INJECTION 10 MG/2 ML VIAL IVPUSH SCH ×2 (18:15→23:21)
[2020-12-23 20:15] LABS: HEMATOCRIT 43.3 % (32.4-45.2); HEMOGLOBIN 13.9 GM/dL (10.7-15.3); MCH 26.5 pg (25.7-33.7); MEAN CELL VOLUME 82.8 fl (80-96); MEAN PLT VOLUME 8.1 fl (7.5-11.1); PLATELET COUNT 309 K/MM3 (134-434); RBC 5.23 M/mm3 (3.60-5.2); RDW 15.3 % (11.6-15.6); WHITE BLOOD COUNT 16.2 K/mm3 (4.0-10.0)
[2020-12-23] MEDS: SODIUM CHLORIDE 1,000 ML IV SCH (20:30)
[2020-12-23 20:44] LABS: ALBUMIN 3.5 g/dl (3.4-5.0); BLOOD UREA NITROGEN 19.9 mg/dL (7-18); CALCIUM 8.8 mg/dL (8.5-10.1)
[2020-12-23 20:48] LABS: CREATININE 1.2 mg/dL (0.55-1.3)
[2020-12-23 20:49] LABS: BILIRUBIN,TOTAL 0.4 mg/dL (0.2-1); TOT PROT 7.3 g/dl (6.4-8.2)
[2020-12-23] MEDS: FAMOTIDINE 20 MG/50 ML IVPB 20 MG/50 ML MG IVPB SCH (21:47)
[2020-12-23] MEDS: HYDROmorphone HCl 2 MG/ML VIAL IVPB PRN (22:53)
[2020-12-23 23:39] LABS: HEMATOCRIT 43.3 % (32.4-45.2); HEMOGLOBIN 13.9 GM/dL (10.7-15.3); MCH 26.5 pg (25.7-33.7); MCHC 32.1 g/dl (32.0-36.0); MEAN CELL VOLUME 82.6 fl (80-96); PLATELET COUNT 318 K/MM3 (134-434); RBC 5.24 M/mm3 (3.60-5.2); RDW 15.2 % (11.6-15.6); WHITE BLOOD COUNT 15.4 K/mm3 (4.0-10.0)
[2020-12-24 00:17] LABS: ALBUMIN 3.5 g/dl (3.4-5.0); BLOOD UREA NITROGEN 19.6 mg/dL (7-18); CALCIUM 8.9 mg/dL (8.5-10.1)
[2020-12-24 00:23] LABS: BILIRUBIN,TOTAL 0.6 mg/dL (0.2-1); TOT PROT 7.1 g/dl (6.4-8.2)
[2020-12-24] MEDS: SODIUM CHLORIDE 1,000 ML IV SCH ×3 (03:09→23:49)
[2020-12-24] MEDS: HYDROmorphone HCl 2 MG/ML VIAL IVPB PRN ×4 (03:11→21:10)
[2020-12-24] MEDS: METOCLOPRAMIDE HCL INJECTION 10 MG/2 ML VIAL IVPUSH SCH ×4 (05:15→22:42)
[2020-12-24 07:09] LABS: HEMATOCRIT 40.2 % (32.4-45.2); MCH 26.6 pg (25.7-33.7); MCHC 32.3 g/dl (32.0-36.0); MEAN CELL VOLUME 82.5 fl (80-96); PLATELET COUNT 314 K/MM3 (134-434); RBC 4.88 M/mm3 (3.60-5.2); RDW 15.2 % (11.6-15.6)
[2020-12-24 07:36] LABS: ALBUMIN 3.2 g/dl (3.4-5.0); BLOOD UREA NITROGEN 16.4 mg/dL (7-18); CALCIUM 8.6 mg/dL (8.5-10.1)
[2020-12-24 07:39] LABS: CREATININE 0.8 mg/dL (0.55-1.3)
[2020-12-24 07:41] LABS: BILIRUBIN,TOTAL 0.7 mg/dL (0.2-1); TOT PROT 6.6 g/dl (6.4-8.2)
[2020-12-24] MEDS: ACETAMINOPHEN 1000 MG/100 ML VIAL (NON FORMULARY) IVPB PRN (09:04)
[2020-12-24] MEDS ORDERED: HYDROmorphone HCl 2 MG/ML VIAL IVPB PRN (09:06)
[2020-12-24] MEDS ORDERED: SODIUM CHLORIDE 1,000 ML IV SCH (09:15)
[2020-12-24] MEDS: FAMOTIDINE 20 MG/50 ML IVPB 20 MG/50 ML MG IVPB SCH ×2 (11:08→21:11)
[2020-12-24] MEDS: ENOXAPARIN NA (PORCINE) 40 MG/0.4 ML DISP.SYRIN SQ SCH ×2 (11:09→21:11)
[2020-12-25] MEDS: ACETAMINOPHEN 1000 MG/100 ML VIAL (NON FORMULARY) IVPB PRN (00:03)
[2020-12-25] MEDS: HYDROmorphone HCl 2 MG/ML VIAL IVPB PRN ×5 (00:55→21:00)
[2020-12-25] MEDS: METOCLOPRAMIDE HCL INJECTION 10 MG/2 ML VIAL IVPUSH SCH ×4 (04:43→23:00)
[2020-12-25] MEDS: SODIUM CHLORIDE 1,000 ML IV SCH ×2 (06:51→17:30)
[2020-12-25 07:32] LABS: HEMATOCRIT 37.6 % (32.4-45.2); HEMOGLOBIN 12.2 GM/dL (10.7-15.3); MCH 26.7 pg (25.7-33.7); MCHC 32.3 g/dl (32.0-36.0); MEAN CELL VOLUME 82.6 fl (80-96); PLATELET COUNT 272 K/MM3 (134-434); RBC 4.55 M/mm3 (3.60-5.2); RDW 15.5 % (11.6-15.6); WHITE BLOOD COUNT 12.2 K/mm3 (4.0-10.0)
[2020-12-25 07:56] LABS: BLOOD UREA NITROGEN 17.8 mg/dL (7-18)
[2020-12-25 08:00] LABS: CREATININE 0.7 mg/dL (0.55-1.3)
[2020-12-25 08:01] LABS: BILIRUBIN,TOTAL 1.2 mg/dL (0.2-1); TOT PROT 6.3 g/dl (6.4-8.2)
[2020-12-25] MEDS: FAMOTIDINE 20 MG/50 ML IVPB 20 MG/50 ML MG IVPB SCH ×2 (10:10→21:06)
[2020-12-25] MEDS: ENOXAPARIN NA (PORCINE) 40 MG/0.4 ML DISP.SYRIN SQ SCH ×2 (10:34→21:06)
[2020-12-26] MEDS: HYDROmorphone HCl 2 MG/ML VIAL IVPB PRN ×3 (01:28→09:25)
[2020-12-26] MEDS: SODIUM CHLORIDE 1,000 ML IV SCH ×2 (01:30→19:28)
[2020-12-26] MEDS: METOCLOPRAMIDE HCL INJECTION 10 MG/2 ML VIAL IVPUSH SCH ×4 (05:06→23:14)
[2020-12-26] MEDS: ENOXAPARIN NA (PORCINE) 40 MG/0.4 ML DISP.SYRIN SQ SCH ×2 (09:23→21:39)
[2020-12-26] MEDS: FAMOTIDINE 20 MG/50 ML IVPB 20 MG/50 ML MG IVPB SCH ×2 (09:24→21:37)
[2020-12-26] MEDS: oxyCODONE HCL 5 MG TABLET PO PRN ×3 (11:52→21:38)
[2020-12-26 20:56] VITALS: BP 157/89; PULSE 85; TEMP 97.5
== END 2020-12-26 23:00 | DRG 403 ==
LOC: EDSTATUS 08:30 → J2C 12-23 04:56 → J4W 12-23 21:02
PROVIDERS: ADMIT Surgery; ATTEND Surgery
PROC: 0DJ04ZZ Inspection of Upper Intestinal Tract, Percutaneous Endoscopic Approach (ICD-10-PCS; 2020-12-23)
PROC: 0DB64Z3 Excision of Stomach, Percutaneous Endoscopic Approach, Vertical (ICD-10-PCS; principal; 2020-12-23 13:00)
PROC: 0DNW4ZZ Release Peritoneum, Percutaneous Endoscopic Approach (ICD-10-PCS; 2020-12-23 13:00)
DX: E66.01 Morbid (severe) obesity due to excess calories (principal); Z68.44 Body mass index [BMI] 60.0-69.9, adult; I10 Essential (primary) hypertension; J45.909 Unspecified asthma, uncomplicated; G47.30 Sleep apnea, unspecified; Z96.641 Presence of right artificial hip joint; K21.9 Gastro-esophageal reflux disease without esophagitis; M54.30 Sciatica, unspecified side; R16.0 Hepatomegaly, not elsewhere classified; K66.0 Peritoneal adhesions (postprocedural) (postinfection)
CPT/HCPCS: 36415; 74240-TC-FY; 80053; 84703; 85027; 86850; 86900; 86901; 86922; 94010; 94760; 97116-GP; 97161-GP; C9803; J0131; U0003; U0005

== ENCOUNTER 2020-12-27 20:46 | Inpatient (IN) | payer OTHER ==
[2020-12-27] MEDS ORDERED: morphine CARPU-JECT 4 MG/1 ML DISP.SYRIN IVPUSH ONE ×2 (21:17→22:29)
[2020-12-27] MEDS ORDERED: ONDANSETRON 4 MG/2 ML VIAL IVPUSH ONE (21:19)
[2020-12-27] MEDS ORDERED: ONDANSETRON 4 MG/2 ML VIAL ONE (21:26)
[2020-12-27] MEDS ORDERED: MORPHINE SULFATE 2 MG/ML VIAL ONE ×2 (21:26→22:29)
[2020-12-27 21:28] LABS: BASO % 0.4 % (0-2.0); EOS % 1.9 % (0-4.5); HEMATOCRIT 39.2 % (32.4-45.2); LYMPH % 20.7 % (8-40); MCH 26.8 pg (25.7-33.7); MCHC 33.1 g/dl (32.0-36.0); MEAN PLT VOLUME 7.7 fl (7.5-11.1); MONO % 7.3 % (3.8-10.2); NEUT % 69.7 % (42.8-82.8); PLATELET COUNT 285 K/MM3 (134-434); RBC 4.84 M/mm3 (3.60-5.2); WHITE BLOOD COUNT 10.2 K/mm3 (4.0-10.0)
[2020-12-27] MEDS ORDERED: methylPREDNISolone NA SUCC 125 MG/2 ML VIAL IVPB ONE (21:37)
[2020-12-27 21:43] LABS: CHLORIDE 100 mmol/L (98-107); SODIUM 137 mmol/L (136-145)
[2020-12-27 21:45] LABS: ALBUMIN 3.2 g/dl (3.4-5.0); ANION GAP 7 MMOL/L (8-16); BLOOD UREA NITROGEN 11.9 mg/dL (7-18); CALCIUM 8.9 mg/dL (8.5-10.1); CO2 29 mmol/L (21-32); GLUCOSE,RANDOM 82 mg/dL (74-106)
[2020-12-27] MEDS ORDERED: methylPREDNISolone NA SUCC 125 MG/2 ML VIAL ONE ×2 (21:45→21:51)
[2020-12-27 21:48] LABS: CREATININE 0.7 mg/dL (0.55-1.3); SGOT/AST 34 U/L (15-37); SGPT/ALT 43 U/L (13-61)
[2020-12-27 21:50] LABS: BILIRUBIN,TOTAL 1.2 mg/dL (0.2-1); TOT PROT 6.9 g/dl (6.4-8.2)
[2020-12-27 21:51] LABS: ALK PHOS 95 U/L (45-117)
[2020-12-28] MEDS ORDERED: morphine CARPU-JECT 4 MG/1 ML DISP.SYRIN IVPUSH ONE (03:03)
[2020-12-28] MEDS ORDERED: morphine SULFATE 4 MG/ML VIAL ONE (03:07)
[2020-12-28] MEDS ORDERED: CYCLOBENZAPRINE HCL 10 MG TABLET (FP) ONE (07:55)
[2020-12-28] MEDS ORDERED: GABAPENTIN 100 MG CAPSULE ONE (07:56)
[2020-12-28] MEDS ORDERED: PANTOPRAZOLE 40 MG TABLET ONE (07:57)
[2020-12-28] MEDS ORDERED: PANTOPRAZOLE 40 MG TABLET PO ONE (08:00)
[2020-12-28] MEDS ORDERED: CYCLOBENZAPRINE HCL 10 MG TABLET (FP) PO ONE (08:00)
[2020-12-28] MEDS ORDERED: GABAPENTIN 100 MG CAPSULE PO ONE (08:00)
[2020-12-28] MEDS ORDERED: ONDANSETRON 4 MG/2 ML VIAL IVPUSH ONE (09:28)
[2020-12-28] MEDS ORDERED: ONDANSETRON 4 MG/2 ML VIAL ONE (09:32)
[2020-12-28] MEDS: DOCUSATE SODIUM 100 MG CAPSULE (FP) PO SCH ×2 (14:54→21:52)
[2020-12-28] MEDS: oxyCODONE HCL 5 MG TABLET PO PRN ×2 (14:55→21:44)
[2020-12-28] MEDS: GABAPENTIN 100 MG CAPSULE PO SCH ×2 (14:59→21:43)
[2020-12-28] MEDS: PANTOPRAZOLE 40 MG TABLET PO SCH (14:59)
[2020-12-28] MEDS: CYCLOBENZAPRINE HCL 10 MG TABLET (FP) PO SCH ×2 (15:00→21:43)
[2020-12-29] MEDS ORDERED: ACETAMINOPHEN 1000 MG/100 ML VIAL (NON FORMULARY) IVPB ONE (00:15)
[2020-12-29 01:42] LABS: EPI CELLS 21 /uL (0-25.1); HYALINE CASTS 0 /uL (0-3.1); PH,URINE 5.5 (5.0-8.0); URINE APPEARANCE CLEAR; URINE BACTERIA 807 /uL (0-1359); URINE BILIRUBIN NEGATIVE (NEGATIVE); URINE COLOR YELLOW; URINE GLUCOSE (UA) NEGATIVE (NEGATIVE); URINE KETONE NEGATIVE (NEGATIVE); URINE LEUK ESTERASE TRACE (NEGATIVE); URINE NITRITE NEGATIVE (NEGATIVE); URINE PROTEIN NEGATIVE (NEGATIVE); URINE RBC 4 /uL (0-23.9); URINE UROBILINOGEN 0.2 mg/dL (0.2-1.0); URINE WBC 47 /uL (0-25.8)
[2020-12-29] MEDS: oxyCODONE HCL 5 MG TABLET PO PRN ×3 (06:08→21:10)
[2020-12-29] MEDS: GABAPENTIN 100 MG CAPSULE PO SCH ×3 (06:09→21:08)
[2020-12-29] MEDS: CYCLOBENZAPRINE HCL 10 MG TABLET (FP) PO SCH ×3 (06:09→21:08)
[2020-12-29] MEDS: DOCUSATE SODIUM 100 MG CAPSULE (FP) PO SCH ×3 (07:08→21:12)
[2020-12-29 08:44] LABS: BASO % 1.1 % (0-2.0); EOS % 0.4 % (0-4.5); HEMATOCRIT 41.8 % (32.4-45.2); HEMOGLOBIN 13.8 GM/dL (10.7-15.3); LYMPH % 28.2 % (8-40); MCH 26.9 pg (25.7-33.7); MCHC 32.9 g/dl (32.0-36.0); MEAN CELL VOLUME 81.8 fl (80-96); MEAN PLT VOLUME 7.8 fl (7.5-11.1); MONO % 6.9 % (3.8-10.2); NEUT % 63.4 % (42.8-82.8); PLATELET COUNT 349 K/MM3 (134-434); RBC 5.12 M/mm3 (3.60-5.2); RDW 15.2 % (11.6-15.6); WHITE BLOOD COUNT 11.8 K/mm3 (4.0-10.0)
[2020-12-29 09:03] LABS: ALBUMIN 3.5 g/dl (3.4-5.0); BLOOD UREA NITROGEN 18.6 mg/dL (7-18); CALCIUM 8.9 mg/dL (8.5-10.1)
[2020-12-29 09:06] LABS: CREATININE 1.2 mg/dL (0.55-1.3)
[2020-12-29 09:08] LABS: BILIRUBIN,TOTAL 0.7 mg/dL (0.2-1); TOT PROT 7.2 g/dl (6.4-8.2)
[2020-12-29] MEDS: ENOXAPARIN NA (PORCINE) 40 MG/0.4 ML DISP.SYRIN SQ SCH (09:29)
[2020-12-29] MEDS: PANTOPRAZOLE 40 MG TABLET PO SCH (09:30)
[2020-12-29] MEDS ORDERED: LACTATED RINGERS SOLUTION 1,000 ML/1,000 ML INFUS.BAG IV SCH (10:15)
[2020-12-29] MEDS ORDERED: diphenhydrAMINE HCL 25 MG CAPSULE (FP) PO ONE (10:28)
[2020-12-29] MEDS ORDERED: methylPREDNISolone NA SUCC 125 MG/2 ML VIAL IVPUSH ONE (11:13)
[2020-12-29] MEDS: METOCLOPRAMIDE HCL INJECTION 10 MG/2 ML VIAL IVPUSH SCH ×2 (16:20→21:09)
[2020-12-30] MEDS: METOCLOPRAMIDE HCL INJECTION 10 MG/2 ML VIAL IVPUSH SCH ×4 (02:26→21:05)
[2020-12-30] MEDS: oxyCODONE HCL 5 MG TABLET PO PRN ×3 (03:04→17:24)
[2020-12-30] MEDS: GABAPENTIN 100 MG CAPSULE PO SCH ×3 (05:47→21:05)
[2020-12-30] MEDS: CYCLOBENZAPRINE HCL 10 MG TABLET (FP) PO SCH ×3 (05:48→21:05)
[2020-12-30] MEDS: DOCUSATE SODIUM 100 MG CAPSULE (FP) PO SCH ×3 (05:48→21:06)
[2020-12-30] MEDS: ENOXAPARIN NA (PORCINE) 40 MG/0.4 ML DISP.SYRIN SQ SCH (09:41)
[2020-12-30] MEDS: PANTOPRAZOLE 40 MG TABLET PO SCH (09:41)
[2020-12-30 10:24] LABS: CALCIUM 9.4 mg/dL (8.5-10.1)
[2020-12-30 10:25] LABS: CREATININE 0.6 mg/dL (0.55-1.3)
[2020-12-30 11:26] LABS: BASO % 0.6 % (0-2.0); EOS % 0.1 % (0-4.5); HEMATOCRIT 39.5 % (32.4-45.2); HEMOGLOBIN 12.9 GM/dL (10.7-15.3); LYMPH % 21.4 % (8-40); MCH 26.8 pg (25.7-33.7); MCHC 32.7 g/dl (32.0-36.0); MEAN CELL VOLUME 81.8 fl (80-96); MEAN PLT VOLUME 8.2 fl (7.5-11.1); MONO % 10.3 % (3.8-10.2); NEUT % 67.6 % (42.8-82.8); PLATELET COUNT 325 K/MM3 (134-434); RBC 4.83 M/mm3 (3.60-5.2); RDW 14.9 % (11.6-15.6)
[2020-12-30] MEDS ORDERED: cefTRIAXone SODIUM 1 GM VIAL ONE (12:59)
[2020-12-30] MEDS ORDERED: DEXTROSE 5%-WATER - 50 ML IVPB ONE (12:59)
[2020-12-30] MEDS: CEFTRIAXONE 1 GM in DEXTROSE 5%-WATER - 50 ML IVPB SCH (13:25)
[2020-12-30] MEDS: DEXTROSE 5%-NORMAL SALINE 1,000 ML IV SCH (13:26)
[2020-12-30] MEDS: ACETAMINOPHEN 1000 MG/100 ML VIAL (NON FORMULARY) IVPB PRN (20:19)
[2020-12-31] MEDS: METOCLOPRAMIDE HCL INJECTION 10 MG/2 ML VIAL IVPUSH SCH ×4 (02:36→21:13)
[2020-12-31] MEDS: DEXTROSE 5%-NORMAL SALINE 1,000 ML IV SCH ×2 (05:33→15:34)
[2020-12-31] MEDS: GABAPENTIN 100 MG CAPSULE PO SCH ×3 (06:04→21:13)
[2020-12-31] MEDS: oxyCODONE HCL 5 MG TABLET PO PRN ×2 (06:04→15:32)
[2020-12-31] MEDS: CYCLOBENZAPRINE HCL 10 MG TABLET (FP) PO SCH ×3 (06:06→21:14)
[2020-12-31] MEDS: DOCUSATE SODIUM 100 MG CAPSULE (FP) PO SCH ×3 (06:06→21:13)
[2020-12-31 07:50] LABS: BASO % 0.5 % (0-2.0); EOS % 0.9 % (0-4.5); HEMOGLOBIN 12.8 GM/dL (10.7-15.3); LYMPH % 31.8 % (8-40); MCH 27.1 pg (25.7-33.7); MEAN CELL VOLUME 82.1 fl (80-96); MONO % 9.3 % (3.8-10.2); NEUT % 57.5 % (42.8-82.8); PLATELET COUNT 294 K/MM3 (134-434); RBC 4.75 M/mm3 (3.60-5.2); RDW 15.4 % (11.6-15.6); WHITE BLOOD COUNT 9.9 K/mm3 (4.0-10.0)
[2020-12-31 08:12] LABS: CALCIUM 8.3 mg/dL (8.5-10.1)
[2020-12-31 08:13] LABS: BLOOD UREA NITROGEN 11.9 mg/dL (7-18); MAGNESIUM 2.4 mg/dL (1.8-2.4)
[2020-12-31 08:16] LABS: CREATININE 0.8 mg/dL (0.55-1.3); PHOSPHOROUS 4.3 mg/dL (2.5-4.9)
[2020-12-31 08:18] LABS: BILIRUBIN,TOTAL 0.6 mg/dL (0.2-1); TOT PROT 6.1 g/dl (6.4-8.2)
[2020-12-31] MEDS ORDERED: DEXTROSE 5%-WATER - 50 ML IVPB ONE (09:11)
[2020-12-31] MEDS ORDERED: cefTRIAXone SODIUM 1 GM VIAL ONE (09:11)
[2020-12-31] MEDS: PANTOPRAZOLE 40 MG TABLET PO SCH (09:47)
[2020-12-31] MEDS: CEFTRIAXONE 1 GM in DEXTROSE 5%-WATER - 50 ML IVPB SCH (09:48)
[2020-12-31] MEDS: ENOXAPARIN NA (PORCINE) 40 MG/0.4 ML DISP.SYRIN SQ SCH (09:48)
[2020-12-31] MEDS: KCL 10 MEQ IVPB 10 MEQ/100 ML INFUS.BAG IVPB SCH ×3 (09:48→15:25)
[2020-12-31] MEDS ORDERED: POTASSIUM CHLORIDE TABS 20 MEQ TABLET.ER (FP) PO ONE (15:28)
[2020-12-31] MEDS: ACETAMINOPHEN 1000 MG/100 ML VIAL (NON FORMULARY) IVPB PRN (18:03)
[2020-12-31] MEDS: PHENAZOPYRIDINE HCL 100 MG TABLET (FP) PO SCH (18:03)
[2021-01-01] MEDS: METOCLOPRAMIDE HCL INJECTION 10 MG/2 ML VIAL IVPUSH SCH ×4 (02:29→22:14)
[2021-01-01] MEDS: ACETAMINOPHEN 1000 MG/100 ML VIAL (NON FORMULARY) IVPB PRN ×2 (02:30→11:52)
[2021-01-01] MEDS: GABAPENTIN 100 MG CAPSULE PO SCH ×3 (05:59→22:14)
[2021-01-01] MEDS: CYCLOBENZAPRINE HCL 10 MG TABLET (FP) PO SCH ×3 (06:00→22:12)
[2021-01-01] MEDS: DOCUSATE SODIUM 100 MG CAPSULE (FP) PO SCH ×4 (06:00→22:12)
[2021-01-01] MEDS ORDERED: DEXTROSE 5%-WATER - 50 ML IVPB ONE (08:38)
[2021-01-01] MEDS ORDERED: cefTRIAXone SODIUM 1 GM VIAL ONE (08:38)
[2021-01-01] MEDS: CEFTRIAXONE 1 GM in DEXTROSE 5%-WATER - 50 ML IVPB SCH (09:09)
[2021-01-01] MEDS: ENOXAPARIN NA (PORCINE) 40 MG/0.4 ML DISP.SYRIN SQ SCH (09:10)
[2021-01-01] MEDS: PHENAZOPYRIDINE HCL 100 MG TABLET (FP) PO SCH ×3 (09:11→17:46)
[2021-01-01] MEDS: PANTOPRAZOLE 40 MG TABLET PO SCH (09:11)
[2021-01-01] MEDS: DEXTROSE 5%-NORMAL SALINE 1,000 ML IV SCH (11:23)
[2021-01-01 12:24] LABS: BASO % 0.7 % (0-2.0); HEMATOCRIT 42.7 % (32.4-45.2); HEMOGLOBIN 13.9 GM/dL (10.7-15.3); LYMPH % 25.4 % (8-40); MCH 26.6 pg (25.7-33.7); MCHC 32.5 g/dl (32.0-36.0); MEAN CELL VOLUME 81.7 fl (80-96); MEAN PLT VOLUME 8.1 fl (7.5-11.1); MONO % 7.5 % (3.8-10.2); NEUT % 63.4 % (42.8-82.8); PLATELET COUNT 331 K/MM3 (134-434); RBC 5.22 M/mm3 (3.60-5.2); RDW 15.6 % (11.6-15.6); WHITE BLOOD COUNT 9.8 K/mm3 (4.0-10.0)
[2021-01-01 12:38] LABS: ALBUMIN 3.5 g/dl (3.4-5.0); CALCIUM 9.1 mg/dL (8.5-10.1)
[2021-01-01 12:39] LABS: BLOOD UREA NITROGEN 8.2 mg/dL (7-18); MAGNESIUM 2.4 mg/dL (1.8-2.4)
[2021-01-01 12:42] LABS: CREATININE 0.9 mg/dL (0.55-1.3); PHOSPHOROUS 3.2 mg/dL (2.5-4.9)
[2021-01-01 12:43] LABS: TOT PROT 7.1 g/dl (6.4-8.2)
[2021-01-01] MEDS: oxyCODONE HCL 5 MG TABLET PO PRN (18:49)
[2021-01-01] MEDS ORDERED: ONDANSETRON 4 MG/2 ML VIAL IVPUSH ONE (20:07)
[2021-01-01] MEDS ORDERED: ACETAMINOPHEN 1000 MG/100 ML VIAL (NON FORMULARY) IVPB ONE (20:07)
[2021-01-01] MEDS ORDERED: LACTATED RINGERS SOLUTION 1,000 ML/1,000 ML INFUS.BAG IV ONE (23:54)
[2021-01-01] MEDS ORDERED: MELATONIN 5 MG TABLETS PO ONE (23:54)
[2021-01-01] MEDS ORDERED: morphine SULFATE 4 MG/ML VIAL IVPUSH ONE (23:55)
[2021-01-02] MEDS: DEXTROSE 5%-NORMAL SALINE 1,000 ML IV SCH ×3 (02:23→18:15)
[2021-01-02] MEDS: METOCLOPRAMIDE HCL INJECTION 10 MG/2 ML VIAL IVPUSH SCH ×4 (02:43→22:34)
[2021-01-02] MEDS: CYCLOBENZAPRINE HCL 10 MG TABLET (FP) PO SCH ×3 (05:37→22:34)
[2021-01-02] MEDS: DOCUSATE SODIUM 100 MG CAPSULE (FP) PO SCH ×3 (05:37→22:34)
[2021-01-02] MEDS: GABAPENTIN 100 MG CAPSULE PO SCH ×3 (05:37→22:33)
[2021-01-02 08:07] LABS: HEMATOCRIT 40.4 % (32.4-45.2); HEMOGLOBIN 13.1 GM/dL (10.7-15.3); MCH 26.8 pg (25.7-33.7); MCHC 32.3 g/dl (32.0-36.0); MEAN CELL VOLUME 83.1 fl (80-96); PLATELET COUNT 265 K/MM3 (134-434); RBC 4.86 M/mm3 (3.60-5.2)
[2021-01-02 08:16] LABS: ALBUMIN 3.1 g/dl (3.4-5.0); CALCIUM 8.4 mg/dL (8.5-10.1)
[2021-01-02] MEDS ORDERED: DEXTROSE 5%-WATER - 50 ML IVPB ONE (08:19)
[2021-01-02] MEDS ORDERED: cefTRIAXone SODIUM 1 GM VIAL ONE (08:19)
[2021-01-02 08:20] LABS: CREATININE 0.9 mg/dL (0.55-1.3)
[2021-01-02 08:21] LABS: BILIRUBIN,TOTAL 0.7 mg/dL (0.2-1); TOT PROT 6.2 g/dl (6.4-8.2)
[2021-01-02] MEDS: ENOXAPARIN NA (PORCINE) 40 MG/0.4 ML DISP.SYRIN SQ SCH (09:22)
[2021-01-02] MEDS: CEFTRIAXONE 1 GM in DEXTROSE 5%-WATER - 50 ML IVPB SCH (09:23)
[2021-01-02] MEDS: PHENAZOPYRIDINE HCL 100 MG TABLET (FP) PO SCH ×3 (09:24→17:29)
[2021-01-02] MEDS: PANTOPRAZOLE 40 MG TABLET PO SCH (09:25)
[2021-01-02] MEDS: ACETAMINOPHEN 1000 MG/100 ML VIAL (NON FORMULARY) IVPB PRN (22:28)
[2021-01-02] MEDS: oxyCODONE HCL 5 MG TABLET PO PRN (22:33)
[2021-01-03] MEDS: METOCLOPRAMIDE HCL INJECTION 10 MG/2 ML VIAL IVPUSH SCH ×4 (03:27→21:46)
[2021-01-03] MEDS: DEXTROSE 5%-NORMAL SALINE 1,000 ML IV SCH (03:38)
[2021-01-03] MEDS: GABAPENTIN 100 MG CAPSULE PO SCH ×3 (06:00→21:46)
[2021-01-03] MEDS: DOCUSATE SODIUM 100 MG CAPSULE (FP) PO SCH ×3 (06:00→21:47)
[2021-01-03] MEDS: CYCLOBENZAPRINE HCL 10 MG TABLET (FP) PO SCH ×4 (06:00→21:49)
[2021-01-03] MEDS ORDERED: DEXTROSE 5%-WATER - 50 ML IVPB ONE (09:06)
[2021-01-03] MEDS ORDERED: cefTRIAXone SODIUM 1 GM VIAL ONE (09:06)
[2021-01-03] MEDS: PANTOPRAZOLE 40 MG TABLET PO SCH (09:52)
[2021-01-03] MEDS: ENOXAPARIN NA (PORCINE) 40 MG/0.4 ML DISP.SYRIN SQ SCH (09:52)
[2021-01-03] MEDS: PHENAZOPYRIDINE HCL 100 MG TABLET (FP) PO SCH ×3 (09:52→18:14)
[2021-01-03] MEDS: CEFTRIAXONE 1 GM in DEXTROSE 5%-WATER - 50 ML IVPB SCH (09:53)
[2021-01-03] MEDS: ACETAMINOPHEN 1000 MG/100 ML VIAL (NON FORMULARY) IVPB PRN ×2 (09:53→18:14)
[2021-01-03] MEDS: oxyCODONE HCL 5 MG TABLET PO PRN (20:10)
[2021-01-03] MEDS ORDERED: MORPHINE SULFATE 2 MG/ML VIAL IVPUSH ONE (23:51)
[2021-01-03] MEDS ORDERED: MELATONIN 5 MG TABLETS PO ONE (23:51)
[2021-01-04] MEDS: METOCLOPRAMIDE HCL INJECTION 10 MG/2 ML VIAL IVPUSH SCH ×4 (04:26→20:16)
[2021-01-04] MEDS ORDERED: PT OWN MED DRAWER 7, Y5N ONE (05:49)
[2021-01-04] MEDS: DOCUSATE SODIUM 100 MG CAPSULE (FP) PO SCH ×4 (05:51→21:50)
[2021-01-04] MEDS: CYCLOBENZAPRINE HCL 10 MG TABLET (FP) PO SCH ×3 (05:51→21:47)
[2021-01-04] MEDS: GABAPENTIN 100 MG CAPSULE PO SCH ×3 (05:51→21:48)
[2021-01-04 08:02] LABS: BASO % 0.6 % (0-2.0); HEMATOCRIT 38.5 % (32.4-45.2); HEMOGLOBIN 12.8 GM/dL (10.7-15.3); LYMPH % 30.6 % (8-40); MCHC 33.2 g/dl (32.0-36.0); MEAN CELL VOLUME 81.4 fl (80-96); MEAN PLT VOLUME 7.8 fl (7.5-11.1); MONO % 8.6 % (3.8-10.2); NEUT % 55.2 % (42.8-82.8); PLATELET COUNT 290 K/MM3 (134-434); RBC 4.73 M/mm3 (3.60-5.2); RDW 15.3 % (11.6-15.6); WHITE BLOOD COUNT 7.3 K/mm3 (4.0-10.0)
[2021-01-04 08:30] LABS: ALBUMIN 3.2 g/dl (3.4-5.0); BLOOD UREA NITROGEN 5.9 mg/dL (7-18); CALCIUM 8.6 mg/dL (8.5-10.1); MAGNESIUM 2.1 mg/dL (1.8-2.4)
[2021-01-04 08:33] LABS: BILIRUBIN,TOTAL 0.7 mg/dL (0.2-1); CREATININE 0.7 mg/dL (0.55-1.3); TOT PROT 6.4 g/dl (6.4-8.2)
[2021-01-04 08:34] LABS: PHOSPHOROUS 4.1 mg/dL (2.5-4.9)
[2021-01-04] MEDS: PHENAZOPYRIDINE HCL 100 MG TABLET (FP) PO SCH ×3 (09:24→17:47)
[2021-01-04] MEDS: ENOXAPARIN NA (PORCINE) 40 MG/0.4 ML DISP.SYRIN SQ SCH (09:24)
[2021-01-04] MEDS ORDERED: DEXTROSE 5%-WATER - 50 ML IVPB ONE (09:28)
[2021-01-04] MEDS ORDERED: cefTRIAXone SODIUM 1 GM VIAL ONE (09:28)
[2021-01-04] MEDS: PANTOPRAZOLE 40 MG TABLET PO SCH (09:30)
[2021-01-04] MEDS: CEFTRIAXONE 1 GM in DEXTROSE 5%-WATER - 50 ML IVPB SCH (09:31)
[2021-01-04] MEDS: oxyCODONE HCL 5 MG TABLET PO PRN ×2 (16:15→23:10)
[2021-01-04 18:28] VITALS: BMI 59.1
[2021-01-05] MEDS: METOCLOPRAMIDE HCL INJECTION 10 MG/2 ML VIAL IVPUSH SCH ×4 (03:58→21:11)
[2021-01-05] MEDS: GABAPENTIN 100 MG CAPSULE PO SCH ×3 (05:32→21:11)
[2021-01-05] MEDS: CYCLOBENZAPRINE HCL 10 MG TABLET (FP) PO SCH ×3 (05:33→21:10)
[2021-01-05] MEDS: DOCUSATE SODIUM 100 MG CAPSULE (FP) PO SCH ×3 (05:33→21:10)
[2021-01-05] MEDS ORDERED: cefTRIAXone SODIUM 1 GM VIAL ONE (09:07)
[2021-01-05] MEDS ORDERED: DEXTROSE 5%-WATER - 50 ML IVPB ONE (09:07)
[2021-01-05] MEDS: oxyCODONE HCL 5 MG TABLET PO PRN ×2 (09:08→15:54)
[2021-01-05] MEDS: MULTIVITAMINS (DAILY MVI) TABLET (FP) PO SCH (09:08)
[2021-01-05] MEDS: PANTOPRAZOLE 40 MG TABLET PO SCH (09:08)
[2021-01-05] MEDS: PHENAZOPYRIDINE HCL 100 MG TABLET (FP) PO SCH ×3 (09:08→17:45)
[2021-01-05] MEDS: CEFTRIAXONE 1 GM in DEXTROSE 5%-WATER - 50 ML IVPB SCH (09:08)
[2021-01-05] MEDS: ENOXAPARIN NA (PORCINE) 40 MG/0.4 ML DISP.SYRIN SQ SCH (09:08)
[2021-01-05 11:16] LABS: BASO % 0.6 % (0-2.0); EOS % 4.1 % (0-4.5); HEMATOCRIT 41.8 % (32.4-45.2); HEMOGLOBIN 13.8 GM/dL (10.7-15.3); LYMPH % 29.1 % (8-40); MCHC 32.9 g/dl (32.0-36.0); MONO % 10.2 % (3.8-10.2); PLATELET COUNT 268 K/MM3 (134-434); RDW 15.5 % (11.6-15.6); WHITE BLOOD COUNT 7.3 K/mm3 (4.0-10.0)
[2021-01-05 11:42] LABS: CALCIUM 9.2 mg/dL (8.5-10.1)
[2021-01-05 11:43] LABS: ALBUMIN 3.6 g/dl (3.4-5.0); BLOOD UREA NITROGEN 7.5 mg/dL (7-18)
[2021-01-05 11:46] LABS: CREATININE 0.9 mg/dL (0.55-1.3); PHOSPHOROUS 3.3 mg/dL (2.5-4.9)
[2021-01-05 11:47] LABS: BILIRUBIN,TOTAL 0.7 mg/dL (0.2-1)
[2021-01-05] MEDS ORDERED: morphine SULFATE 4 MG/ML VIAL IVPUSH ONE (21:03)
[2021-01-05] MEDS ORDERED: MELATONIN 5 MG TABLETS PO ONE (21:04)
[2021-01-06] MEDS: METOCLOPRAMIDE HCL INJECTION 10 MG/2 ML VIAL IVPUSH SCH ×2 (03:17→10:51)
[2021-01-06] MEDS: DOCUSATE SODIUM 100 MG CAPSULE (FP) PO SCH (05:03)
[2021-01-06] MEDS: GABAPENTIN 100 MG CAPSULE PO SCH (05:33)
[2021-01-06] MEDS: CYCLOBENZAPRINE HCL 10 MG TABLET (FP) PO SCH (05:33)
[2021-01-06 07:33] LABS: BASO % 0.5 % (0-2.0); HEMOGLOBIN 13.7 GM/dL (10.7-15.3); LYMPH % 32.4 % (8-40); MCH 27.1 pg (25.7-33.7); MCHC 33.4 g/dl (32.0-36.0); MEAN CELL VOLUME 81.2 fl (80-96); MEAN PLT VOLUME 7.9 fl (7.5-11.1); MONO % 10.9 % (3.8-10.2); NEUT % 52.2 % (42.8-82.8); PLATELET COUNT 272 K/MM3 (134-434); RBC 5.04 M/mm3 (3.60-5.2); RDW 15.3 % (11.6-15.6); WHITE BLOOD COUNT 7.2 K/mm3 (4.0-10.0)
[2021-01-06 07:48] LABS: ALBUMIN 3.5 g/dl (3.4-5.0); BLOOD UREA NITROGEN 8.2 mg/dL (7-18); CALCIUM 9.3 mg/dL (8.5-10.1); MAGNESIUM 2.2 mg/dL (1.8-2.4)
[2021-01-06 07:51] LABS: CREATININE 0.7 mg/dL (0.55-1.3); PHOSPHOROUS 4.6 mg/dL (2.5-4.9)
[2021-01-06 07:53] LABS: BILIRUBIN,TOTAL 1.1 mg/dL (0.2-1); TOT PROT 6.8 g/dl (6.4-8.2)
[2021-01-06 09:29] VITALS: TEMP 98
[2021-01-06] MEDS ORDERED: MAG HYDROX/AL HYDROX/SIMETH 30 ML UNIT-DOSE CUP PO PRN (09:37)
[2021-01-06 09:52] VITALS: PULSE 89
[2021-01-06 09:58] VITALS: BP 141/82
[2021-01-06] MEDS ORDERED: PANTOPRAZOLE 40 MG TABLET PO SCH (10:00)
[2021-01-06] MEDS ORDERED: cefTRIAXone SODIUM 1 GM VIAL ONE (10:39)
[2021-01-06] MEDS ORDERED: DEXTROSE 5%-WATER - 50 ML IVPB ONE (10:39)
[2021-01-06] MEDS ORDERED: PT OWN MED DRAWER 7, Y5N ONE (10:39)
[2021-01-06] MEDS ORDERED: ACETAMINOPHEN 1000 MG/100 ML VIAL (NON FORMULARY) IVPB PRN (10:40)
[2021-01-06] MEDS: PHENAZOPYRIDINE HCL 100 MG TABLET (FP) PO SCH (10:43)
[2021-01-06] MEDS: MULTIVITAMINS (DAILY MVI) TABLET (FP) PO SCH (10:50)
[2021-01-06] MEDS: CEFTRIAXONE 1 GM in DEXTROSE 5%-WATER - 50 ML IVPB SCH (10:51)
[2021-01-06 19:06] LABS: GLIADIN ANTIBODY IGA 5 units (0-19); GLIADIN ANTIBODY IGG 2 units (0-19); TRANSGLUTAMINASE IGG 6 U/mL (0-5)
[2021-01-08 16:08] LABS: ALPHA 2 MACROGLOBULINS,QN 162 mg/dL (110-276); ALT(SGPT)P5P 48 IU/L (0-40); CHOLESTEROL TOTAL 149 mg/dL (100-199); FIBROSIS SCORE 0.15 (0.00-0.21); GLUCOSE SERUM 82 mg/dL (65-99); HEIGHT 65 in (.); WEIGHT- 354 LBS (.)
== END 2021-01-06 13:15 | disposition home or self-care (01) | DRG 813 ==
LOC: JER 20:46 → JERBED 12-28 08:51 → J7W 12-28 13:10 → OBSVTOIN 12-28 14:35
PROVIDERS: ADMIT Internal Medicine; ATTEND Internal Medicine
PROC: 0DB78ZX Excision of Stomach, Pylorus, Via Natural or Artificial Opening Endoscopic, Diagnostic (ICD-10-PCS; 2021-01-06)
PROC: 0DB68ZX Excision of Stomach, Via Natural or Artificial Opening Endoscopic, Diagnostic (ICD-10-PCS; 2021-01-06)
PROC: 0DB58ZX Excision of Esophagus, Via Natural or Artificial Opening Endoscopic, Diagnostic (ICD-10-PCS; 2021-01-06)
PROC: 0DB98ZX Excision of Duodenum, Via Natural or Artificial Opening Endoscopic, Diagnostic (ICD-10-PCS; principal; 2021-01-06 08:45)
DX: K91.840 Postprocedural hemorrhage of a digestive system organ or structure following a digestive system procedure (principal); K76.0 Fatty (change of) liver, not elsewhere classified; K92.0 Hematemesis; M54.30 Sciatica, unspecified side; E66.01 Morbid (severe) obesity due to excess calories; Z68.43 Body mass index [BMI] 50.0-59.9, adult; R13.10 Dysphagia, unspecified; K21.9 Gastro-esophageal reflux disease without esophagitis; K57.90 Diverticulosis of intestine, part unspecified, without perforation or abscess without bleeding; N39.0 Urinary tract infection, site not specified; Y83.8 Other surgical procedures as the cause of abnormal reaction of the patient, or of later complication, without mention of misadventure at the time of the procedure; K29.70 Gastritis, unspecified, without bleeding
CPT/HCPCS: 36415; 71045-TC-FY; 74177-TC; 80048; 80053; 81003; 82172; 82247; 82465; 82550; 82728; 82784; 82947; 82977; 83010; 83516; 83540; 83550; 83690; 83735; 83883; 84100; 84450; 84460; 84478; 84484; 84703; 85025; 85027; 86038; 86140; 87040; 87086; 87186; 93005; 93010; 97116-GP; 97161-GP; 99285-25; C9803; G0378; J0131; Q9967; U0003; U0005

== ENCOUNTER 2021-01-08 17:45 | Inpatient (IN) | payer OTHER ==
[2021-01-08] MEDS ORDERED: morphine CARPU-JECT 8 MG/1 ML DISP.SYRIN IVPUSH ONE ×2 (19:32→21:28)
[2021-01-08] MEDS ORDERED: FAMOTIDINE 20 MG/50 ML IVPB 20 MG/50 ML MG IVPB ONE ×2 (19:32→19:48)
[2021-01-08] MEDS ORDERED: LACTATED RINGERS SOLUTION 1,000 ML/1,000 ML INFUS.BAG IV STA (19:32)
[2021-01-08] MEDS ORDERED: MAG HYDROX/AL HYDROX/SIMETH 30 ML UNIT-DOSE CUP PO ONE (19:44)
[2021-01-08] MEDS ORDERED: MAG HYDROX/AL HYDROX/SIMETH 30 ML UNIT-DOSE CUP ONE (19:48)
[2021-01-08 19:56] LABS: BASO % 1.2 % (0-2.0); EOS % 2.2 % (0-4.5); HEMATOCRIT 41.5 % (32.4-45.2); HEMOGLOBIN 13.7 GM/dl (10.7-15.3); LYMPH % 29.8 % (8-40); MCH 26.8 pg (25.7-33.7); MEAN CELL VOLUME 81.1 fl (80-96); MEAN PLT VOLUME 8.3 fl (7.5-11.1); MONO % 8.4 % (3.8-10.2); NEUT % 58.4 % (42.8-82.8); PLATELET COUNT 310 K/MM3 (134-434); RBC 5.11 M/mm3 (3.60-5.2); RDW 14.6 % (11.6-15.6); WHITE BLOOD COUNT 8.3 K/mm3 (4.0-10.8)
[2021-01-08] MEDS ORDERED: morphine SULFATE 4 MG/ML VIAL ONE (20:00)
[2021-01-08 20:12] LABS: ANION GAP 9 MMOL/L (8-16); CHLORIDE 104 mmol/L (98-107); CO2 25 mmol/L (21-32); GLUCOSE,RANDOM 101 mg/dl (74-106); SODIUM 138 mmol/L (136-145)
[2021-01-08 20:19] LABS: ACTIVATED PTT 32.9 SECONDS (25.2-36.5); ALBUMIN 3.8 g/dl (3.4-5.0); ALK PHOS 78 U/L (45-117); BILIRUBIN,TOTAL 0.7 mg/dl (0.2-1); CREATININE 0.9 mg/dl (0.55-1.3); SGOT/AST 26 U/L (15-37); SGPT/ALT 35 U/L (13-61); TOT PROT 6.8 g/dl (6.4-8.2)
[2021-01-08 20:24] LABS: INR 1.16 (0.82-1.09); PROTHROMBIN TIME (PATIENT) 12.9 SEC (10.2-13.0)
[2021-01-08] MEDS ORDERED: ACETAMINOPHEN 1000 MG/100 ML VIAL (NON FORMULARY) IVPB ONE (21:28)
[2021-01-08] MEDS ORDERED: ACETAMINOPHEN INJECTION 100 ML IVPB ONE (21:37)
[2021-01-08 22:32] LABS: HCG,QUALITATIVE URINE Negative
[2021-01-08 22:40] LABS: EPITHELIAL CELLS MANY /hpf
[2021-01-08] MEDS ORDERED: ONDANSETRON 4 MG/2 ML VIAL IVPUSH ONE (23:55)
[2021-01-08] MEDS ORDERED: ONDANSETRON 4 MG/2 ML VIAL ONE (23:58)
[2021-01-09 00:46] VITALS: BMI 57.9
[2021-01-09] MEDS ORDERED: oxyCODONE HCL 5 MG TABLET PO PRN ×2 (00:55→01:42)
[2021-01-09] MEDS ORDERED: MAG HYDROX/AL HYDROX/SIMETH 30 ML UNIT-DOSE CUP PO PRN (01:35)
[2021-01-09] MEDS ORDERED: ACETAMINOPHEN 325 MG TABLET (FP) PO PRN ×4 (01:35→14:10)
[2021-01-09] MEDS ORDERED: morphine SULFATE 4 MG/ML VIAL IVPUSH PRN (01:37)
[2021-01-09] MEDS: CYCLOBENZAPRINE HCL 10 MG TABLET (FP) PO SCH ×3 (06:40→21:29)
[2021-01-09] MEDS: GABAPENTIN 100 MG CAPSULE PO SCH ×3 (06:40→21:29)
[2021-01-09] MEDS: HEPARIN NA (PORCINE) 5,000 UNITS/ML 1ML VIAL SQ SCH ×2 (09:28→21:29)
[2021-01-09] MEDS: PANTOPRAZOLE 40 MG TABLET PO SCH (09:29)
[2021-01-09] MEDS ORDERED: SODIUM CHLORIDE 1,000 ML IV SCH (09:45)
[2021-01-09] MEDS ORDERED: ACETAMINOPHEN 1000 MG/100 ML VIAL (NON FORMULARY) IVPB SCH (10:30)
[2021-01-09] MEDS ORDERED: MELATONIN 5 MG TABLETS PO PRN (13:25)
[2021-01-09] MEDS: AMOX TR/POT CLAV 875MG/125MG TABLETS (FP) PO SCH ×2 (14:37→21:30)
[2021-01-09] MEDS ORDERED: traMADol HCL 50 MG TABLET PO ONE (21:14)
[2021-01-10] MEDS: GABAPENTIN 100 MG CAPSULE PO SCH (06:16)
[2021-01-10] MEDS: CYCLOBENZAPRINE HCL 10 MG TABLET (FP) PO SCH (06:16)
[2021-01-10 06:56] VITALS: TEMP 97.9
[2021-01-10 08:26] LABS: BASO % 0.8 % (0-2.0); EOS % 3.5 % (0-4.5); HEMATOCRIT 39.5 % (32.4-45.2); HEMOGLOBIN 13.1 GM/dl (10.7-15.3); LYMPH % 42.5 % (8-40); MCH 26.9 pg (25.7-33.7); MCHC 33.1 g/dl (32.0-36.0); MEAN CELL VOLUME 81.5 fl (80-96); MEAN PLT VOLUME 8.5 fl (7.5-11.1); MONO % 9.4 % (3.8-10.2); NEUT % 43.8 % (42.8-82.8); PLATELET COUNT 278 K/MM3 (134-434); RBC 4.84 M/mm3 (3.60-5.2); RDW 14.2 % (11.6-15.6); WHITE BLOOD COUNT 4.9 K/mm3 (4.0-10.8)
[2021-01-10 08:32] LABS: ALBUMIN 3.3 g/dl (3.4-5.0); BILIRUBIN,TOTAL 0.8 mg/dl (0.2-1); CALCIUM 8.7 mg/dl (8.5-10); CREATININE 0.8 mg/dl (0.55-1.3)
[2021-01-10 09:07] VITALS: BP 126/74; PULSE 76
[2021-01-10] MEDS: HEPARIN NA (PORCINE) 5,000 UNITS/ML 1ML VIAL SQ SCH (09:32)
[2021-01-10] MEDS: AMOX TR/POT CLAV 875MG/125MG TABLETS (FP) PO SCH (09:32)
[2021-01-10] MEDS: PANTOPRAZOLE 40 MG TABLET PO SCH (09:32)
== END 2021-01-10 10:55 | disposition home or self-care (01) | DRG 241 ==
LOC: FER 17:45 → FM/S 23:31
PROVIDERS: ADMIT Internal Medicine; ATTEND Nurse Practitioner Family
DX: K29.70 Gastritis, unspecified, without bleeding (principal); E66.01 Morbid (severe) obesity due to excess calories; K21.9 Gastro-esophageal reflux disease without esophagitis; Z98.84 Bariatric surgery status; Z68.43 Body mass index [BMI] 50.0-59.9, adult
CPT/HCPCS: 36415; 71046-TC-FY; 74177-TC; 80053; 81003; 81015; 84484; 84703; 85025; 85610; 85730; 86850; 86900; 86901; 87086; 87186; 93005; 99285-25; C9803; J0131; J1644; Q9967; U0003; U0005

== ENCOUNTER 2021-03-11 18:04 | Inpatient (IN) | payer OTHER ==
[2021-03-11] MEDS ORDERED: ONDANSETRON 4 MG/2 ML VIAL IVPUSH ONE ×2 (19:59→22:59)
[2021-03-11] MEDS ORDERED: FAMOTIDINE 20 MG/50 ML IVPB 20 MG/50 ML MG IVPB ONE ×2 (19:59→20:12)
[2021-03-11] MEDS ORDERED: ACETAMINOPHEN 1000 MG/100 ML VIAL (NON FORMULARY) IVPB ONE (19:59)
[2021-03-11] MEDS ORDERED: SODIUM CHLORIDE 0.9% 500 ML INFUS.BAG IV ONE (19:59)
[2021-03-11] MEDS ORDERED: ONDANSETRON 4 MG/2 ML VIAL ONE ×2 (20:12→23:02)
[2021-03-11] MEDS ORDERED: ACETAMINOPHEN INJECTION 100 ML IVPB ONE (20:12)
[2021-03-11 21:16] LABS: EPI CELLS >36 /uL (0-25.1); HYALINE CASTS 4 /uL (0-3.1); URINE APPEARANCE CLOUDY; URINE BACTERIA 1395 /uL (0-1359); URINE BILIRUBIN NEGATIVE (NEGATIVE); URINE COLOR YELLOW; URINE GLUCOSE (UA) NEGATIVE (NEGATIVE); URINE KETONE TRACE (NEGATIVE); URINE LEUK ESTERASE TRACE (NEGATIVE); URINE NITRITE NEGATIVE (NEGATIVE); URINE PROTEIN NEGATIVE (NEGATIVE); URINE RBC 14 /uL (0-23.9); URINE WBC 40 /uL (0-25.8)
[2021-03-11 21:29] LABS: BASO % 0.9 % (0-2.0); HEMOGLOBIN 13.4 GM/dL (10.7-15.3); LYMPH % 29.6 % (8-40); MCH 27.4 pg (25.7-33.7); MCHC 33.5 g/dl (32.0-36.0); MEAN CELL VOLUME 81.7 fl (80-96); MEAN PLT VOLUME 7.9 fl (7.5-11.1); MONO % 6.8 % (3.8-10.2); NEUT % 60.7 % (42.8-82.8); PLATELET COUNT 302 10^3/uL (134-434); RDW 15.8 % (11.6-15.6)
[2021-03-11 21:36] LABS: INR 0.95 (0.83-1.09); PROTHROMBIN TIME (PATIENT) 11.5 SEC (9.7-13.0)
[2021-03-11 21:47] LABS: ALBUMIN 3.8 g/dl (3.4-5.0); BLOOD UREA NITROGEN 14.9 mg/dL (7-18); CALCIUM 8.8 mg/dL (8.5-10.1)
[2021-03-11 21:52] LABS: CREATININE 0.9 mg/dL (0.55-1.3)
[2021-03-11 21:53] LABS: BILIRUBIN,TOTAL 0.8 mg/dL (0.2-1)
[2021-03-11 21:54] LABS: RETICULOCYTES 2.12 % (0.5-1.5); TOT PROT 7.1 g/dl (6.4-8.2)
[2021-03-11 22:33] LABS: PHOSPHOROUS 4.3 mg/dL (2.5-4.9)
[2021-03-11] MEDS ORDERED: morphine CARPU-JECT 4 MG/1 ML DISP.SYRIN IVPUSH ONE (22:59)
[2021-03-11] MEDS ORDERED: morphine SULFATE 4 MG/ML VIAL ONE (23:02)
[2021-03-12] MEDS ORDERED: ACETAMINOPHEN 1000 MG/100 ML VIAL (NON FORMULARY) IVPB PRN (02:10)
[2021-03-12] MEDS ORDERED: ONDANSETRON 4 MG/2 ML VIAL IVPUSH ONE (02:22)
[2021-03-12] MEDS ORDERED: morphine CARPU-JECT 4 MG/1 ML DISP.SYRIN IVPUSH PRN (03:10)
[2021-03-12] MEDS ORDERED: morphine SULFATE 4 MG/ML VIAL IVPUSH PRN (03:10)
[2021-03-12 08:39] LABS: HEMATOCRIT 38.4 % (32.4-45.2); MCH 27.9 pg (25.7-33.7); MCHC 33.7 g/dl (32.0-36.0); MEAN CELL VOLUME 82.8 fl (80-96); MEAN PLT VOLUME 8.2 fl (7.5-11.1); PLATELET COUNT 291 10^3/uL (134-434); RBC 4.64 M/mm3 (3.60-5.2); RDW 15.5 % (11.6-15.6); WHITE BLOOD COUNT 7.4 K/mm3 (4.0-10.0)
[2021-03-12 08:57] LABS: CHLORIDE 106 mmol/L (98-107); SODIUM 141 mmol/L (136-145)
[2021-03-12 09:00] LABS: ALBUMIN 3.3 g/dl (3.4-5.0); CALCIUM 8.4 mg/dL (8.5-10.1)
[2021-03-12 09:01] LABS: ANION GAP 6 MMOL/L (8-16); CO2 29 mmol/L (21-32); GLUCOSE,RANDOM 86 mg/dL (74-106); MAGNESIUM 2.3 mg/dL (1.8-2.4)
[2021-03-12 09:04] LABS: CREATININE 0.9 mg/dL (0.55-1.3); PHOSPHOROUS 4.6 mg/dL (2.5-4.9); SGOT/AST 18 U/L (15-37); SGPT/ALT 29 U/L (13-61)
[2021-03-12 09:05] LABS: BILIRUBIN,TOTAL 1.2 mg/dL (0.2-1); TOT PROT 6.4 g/dl (6.4-8.2)
[2021-03-12 09:06] LABS: ALK PHOS 73 U/L (45-117)
[2021-03-12] MEDS: PANTOPRAZOLE SODIUM 40 MG VIAL IVPUSH SCH (09:36)
[2021-03-12] MEDS ORDERED: DEXTROSE 5%-NORMAL SALINE 1,000 ML IV ONE ×2 (14:33→15:27)
[2021-03-12] MEDS ORDERED: oxyCODONE HCL 5 MG TABLET PO PRN (15:02)
[2021-03-12] MEDS ORDERED: DEXTROSE 5%-NORMAL SALINE 1,000 ML IV SCH (15:30)
[2021-03-12] MEDS: oxyCODONE HCL 5 MG TABLET PO PRN ×2 (15:33→21:26)
[2021-03-12 16:13] LABS: HEMATOCRIT 39.5 % (32.4-45.2); MCH 26.9 pg (25.7-33.7); MCHC 32.9 g/dl (32.0-36.0); MEAN CELL VOLUME 81.8 fl (80-96); MEAN PLT VOLUME 8.1 fl (7.5-11.1); PLATELET COUNT 265 10^3/uL (134-434); RBC 4.83 M/mm3 (3.60-5.2); WHITE BLOOD COUNT 7.5 K/mm3 (4.0-10.0)
[2021-03-12] MEDS: METOCLOPRAMIDE HCL INJECTION 10 MG/2 ML VIAL IVPB SCH (21:26)
[2021-03-12 22:12] LABS: HEMATOCRIT 37.8 % (32.4-45.2); HEMOGLOBIN 12.7 GM/dL (10.7-15.3); MCH 27.4 pg (25.7-33.7); MCHC 33.6 g/dl (32.0-36.0); MEAN CELL VOLUME 81.5 fl (80-96); MEAN PLT VOLUME 7.9 fl (7.5-11.1); PLATELET COUNT 255 10^3/uL (134-434); RBC 4.63 M/mm3 (3.60-5.2); RDW 15.1 % (11.6-15.6); WHITE BLOOD COUNT 7.7 K/mm3 (4.0-10.0)
[2021-03-13] MEDS: METOCLOPRAMIDE HCL INJECTION 10 MG/2 ML VIAL IVPB SCH ×2 (04:29→11:17)
[2021-03-13] MEDS: oxyCODONE HCL 5 MG TABLET PO PRN (05:32)
[2021-03-13] MEDS: PANTOPRAZOLE SODIUM 40 MG VIAL IVPUSH SCH (09:48)
[2021-03-13 10:13] LABS: BASO % 0.5 % (0-2.0); EOS % 3.9 % (0-4.5); HEMATOCRIT 38.7 % (32.4-45.2); HEMOGLOBIN 12.8 GM/dL (10.7-15.3); LYMPH % 30.1 % (8-40); MCH 27.3 pg (25.7-33.7); MEAN CELL VOLUME 82.5 fl (80-96); MEAN PLT VOLUME 7.8 fl (7.5-11.1); MONO % 6.9 % (3.8-10.2); NEUT % 58.6 % (42.8-82.8); PLATELET COUNT 290 10^3/uL (134-434); RBC 4.69 M/mm3 (3.60-5.2); RDW 15.2 % (11.6-15.6); WHITE BLOOD COUNT 7.8 K/mm3 (4.0-10.0)
[2021-03-13 10:32] LABS: CALCIUM 8.3 mg/dL (8.5-10.1)
[2021-03-13 10:33] LABS: MAGNESIUM 2.3 mg/dL (1.8-2.4)
[2021-03-13 10:35] LABS: ALBUMIN 3.4 g/dl (3.4-5.0); BLOOD UREA NITROGEN 8.4 mg/dL (7-18)
[2021-03-13 10:36] LABS: CREATININE 0.8 mg/dL (0.55-1.3)
[2021-03-13 10:38] LABS: TOT PROT 6.4 g/dl (6.4-8.2)
[2021-03-13 10:39] LABS: BILIRUBIN,TOTAL 0.9 mg/dL (0.2-1)
[2021-03-13 14:29] VITALS: BMI 57.0
[2021-03-13 15:07] VITALS: BP 114/70; PULSE 75; TEMP 97.9
[2021-03-13] MEDS ORDERED: AMOX TR/POT CLAV 875MG/125MG TABLETS (FP) PO ONE (15:30)
[2021-03-13] MEDS ORDERED: SULFAMETHOXAZOLE/TRIMETHOPRIM 800MG/160MG D.S. TABLET PO ONE (15:30)
== END 2021-03-13 16:28 | disposition home or self-care (01) | DRG 241 ==
LOC: JER 18:04 → JERBED 23:22 → J7W 03-12 00:54
PROVIDERS: ADMIT Internal Medicine; ATTEND Internal Medicine
DX: K29.60 Other gastritis without bleeding (principal); K21.9 Gastro-esophageal reflux disease without esophagitis; E66.01 Morbid (severe) obesity due to excess calories; Z68.43 Body mass index [BMI] 50.0-59.9, adult; R11.2 Nausea with vomiting, unspecified; D72.829 Elevated white blood cell count, unspecified; K76.0 Fatty (change of) liver, not elsewhere classified; G47.33 Obstructive sleep apnea (adult) (pediatric); K64.4 Residual hemorrhoidal skin tags; M54.30 Sciatica, unspecified side; K76.9 Liver disease, unspecified; K57.90 Diverticulosis of intestine, part unspecified, without perforation or abscess without bleeding; Z87.442 Personal history of urinary calculi; Z98.84 Bariatric surgery status; Z96.641 Presence of right artificial hip joint
CPT/HCPCS: 36415; 71045-TC-FY; 74177-TC; 80053; 80061; 81003; 82272; 83690; 83735; 84100; 84443; 84484; 84703; 85025; 85027; 85045; 85610; 85730; 86850; 86900; 86901; 87086; 93005; 93010; 99285-25; C9803; J0131; Q9967; U0003; U0005

== ENCOUNTER 2022-03-17 21:13 | Observation (INO) | payer OTHER ==
[2022-03-17 21:31] VITALS: BMI 54.9
[2022-03-17] MEDS ORDERED: ACETAMINOPHEN 1000 MG/100 ML BAG IVPB ONE (22:52)
[2022-03-17] MEDS ORDERED: MAG HYDROX/AL HYDROX/SIMETH 30 ML UNIT-DOSE CUP PO ONE (22:52)
[2022-03-17] MEDS ORDERED: FAMOTIDINE 20 MG/50 ML IVPB 20 MG/50 ML MG IVPB ONE ×2 (22:52→23:26)
[2022-03-17] MEDS ORDERED: ONDANSETRON 4 MG/2 ML VIAL IVPUSH ONE (22:52)
[2022-03-17] MEDS ORDERED: LIDOCAINE VISCOUS 2% ORAL/TOP 100 ML BOTTLE MM ONE (22:52)
[2022-03-17] MEDS ORDERED: LIDOCAINE VISCOUS 2% ORAL/TOP 15 ML UNIT-DOSE CUP ONE (23:25)
[2022-03-17] MEDS ORDERED: MAG HYDROX/AL HYDROX/SIMETH 30 ML UNIT-DOSE CUP ONE (23:25)
[2022-03-17] MEDS ORDERED: ACETAMINOPHEN INJECTION 100 ML IVPB ONE (23:25)
[2022-03-17] MEDS ORDERED: ONDANSETRON 4 MG/2 ML VIAL ONE (23:26)
[2022-03-18] MEDS ORDERED: morphine CARPU-JECT 4 MG/1 ML DISP.SYRIN IVPUSH ONE ×2 (00:37→01:54)
[2022-03-18 00:42] LABS: BASO % 0.7 % (0-2.0); HEMATOCRIT 40.6 % (32.4-45.2); HEMOGLOBIN 13.8 GM/dL (10.7-15.3); LYMPH % 25.7 % (8-40); MCH 27.9 pg (25.7-33.7); MEAN CELL VOLUME 82.1 fl (80-96); MEAN PLT VOLUME 7.8 fl (7.5-11.1); MONO % 7.1 % (3.8-10.2); NEUT % 64.5 % (42.8-82.8); PLATELET COUNT 282 10^3/uL (134-434); RBC 4.95 M/mm3 (3.60-5.2); RDW 15.2 % (11.6-15.6); WHITE BLOOD COUNT 10.3 K/mm3 (4.0-10.0)
[2022-03-18 00:46] LABS: URINE APPEARANCE CLOUDY; URINE BILIRUBIN NEGATIVE (NEGATIVE); URINE COLOR YELLOW; URINE GLUCOSE (UA) NEGATIVE (NEGATIVE); URINE KETONE TRACE (NEGATIVE); URINE LEUK ESTERASE NEGATIVE (NEGATIVE); URINE NITRITE NEGATIVE (NEGATIVE); URINE PROTEIN NEGATIVE (NEGATIVE); URINE UROBILINOGEN 0.2 mg/dL (0.2-1.0)
[2022-03-18 00:50] LABS: INR 0.96 (0.83-1.09)
[2022-03-18 00:53] LABS: ACTIVATED PTT 34.2 SECONDS (25.2-36.5); HCG,QUALITATIVE URINE Negative
[2022-03-18] MEDS ORDERED: morphine SULFATE 4 MG/ML VIAL ONE ×4 (01:05→16:25)
[2022-03-18 01:06] LABS: ALBUMIN 3.6 g/dl (3.4-5.0); BLOOD UREA NITROGEN 13.5 mg/dL (7-18); CALCIUM 9.3 mg/dL (8.5-10.1)
[2022-03-18 01:10] LABS: BILIRUBIN,TOTAL 0.9 mg/dL (0.2-1); CREATININE 0.9 mg/dL (0.55-1.3); TOT PROT 7.2 g/dl (6.4-8.2)
[2022-03-18] MEDS ORDERED: HYDROmorphone HCL CARPU-JECT 2 MG/1 ML DISP.SYRIN IVPUSH ONE ×2 (03:01→05:06)
[2022-03-18] MEDS ORDERED: ONDANSETRON 4 MG/2 ML VIAL IVPUSH ONE (03:01)
[2022-03-18] MEDS ORDERED: HYDROmorphone HCl 2 MG/ML VIAL ONE ×2 (03:04→05:11)
[2022-03-18] MEDS ORDERED: ONDANSETRON 4 MG/2 ML VIAL ONE (03:04)
[2022-03-18] MEDS ORDERED: ALBUTEROL SO4 HFA INHALER IH PRN (06:57)
[2022-03-18] MEDS ORDERED: CYCLOBENZAPRINE HCL 5 MG TABLET PO PRN (06:58)
[2022-03-18] MEDS ORDERED: diphenhydrAMINE HCL 25 MG CAPSULE (FP) PO PRN (06:58)
[2022-03-18] MEDS ORDERED: PRAMIPEXOLE DIHYDROCHLORIDE 0.5 MG TABLET PO PRN ×2 (07:23→07:40)
[2022-03-18] MEDS ORDERED: CYCLOBENZAPRINE HCL 10 MG TABLET (FP) PO PRN (07:58)
[2022-03-18] MEDS ORDERED: ACETAMINOPHEN 1000 MG/100 ML BAG IVPB PRN (08:07)
[2022-03-18 08:14] LABS: BASO % 0.6 % (0-2.0); HEMATOCRIT 41.8 % (32.4-45.2); HEMOGLOBIN 13.6 GM/dL (10.7-15.3); LYMPH % 36.9 % (8-40); MCH 26.9 pg (25.7-33.7); MCHC 32.6 g/dl (32.0-36.0); MEAN CELL VOLUME 82.4 fl (80-96); MEAN PLT VOLUME 8.2 fl (7.5-11.1); NEUT % 53.5 % (42.8-82.8); PLATELET COUNT 302 10^3/uL (134-434); RBC 5.07 M/mm3 (3.60-5.2); RDW 15.3 % (11.6-15.6); WHITE BLOOD COUNT 8.6 K/mm3 (4.0-10.0)
[2022-03-18] MEDS ORDERED: GABAPENTIN 400 MG CAPSULE ONE (08:34)
[2022-03-18] MEDS ORDERED: diphenhydrAMINE HCL 25 MG CAPSULE (FP) PO ONE (08:35)
[2022-03-18] MEDS: DEXTROSE 5%-NORMAL SALINE 1,000 ML IV SCH ×2 (08:50→23:17)
[2022-03-18] MEDS: GABAPENTIN 400 MG CAPSULE PO SCH ×2 (09:03→22:13)
[2022-03-18] MEDS ORDERED: PANTOPRAZOLE SODIUM 40 MG VIAL IVPUSH SCH ×2 (10:00→22:00)
[2022-03-18] MEDS ORDERED: PANTOPRAZOLE 40 MG TABLET PO SCH (10:00)
[2022-03-18] MEDS ORDERED: morphine SULFATE 4 MG/ML VIAL IVPUSH ONE (10:45)
[2022-03-18] MEDS ORDERED: PHENAZOPYRIDINE HCL 100 MG TABLET (FP) ONE (16:25)
[2022-03-18] MEDS ORDERED: cefTRIAXone SODIUM 1 GM VIAL ONE (16:26)
[2022-03-18] MEDS: CEFTRIAXONE 1 GM in DEXTROSE 5%-WATER - 50 ML IVPB SCH (16:48)
[2022-03-18] MEDS: PHENAZOPYRIDINE HCL 100 MG TABLET (FP) PO SCH ×2 (16:48→22:13)
[2022-03-18] MEDS: morphine SULFATE 4 MG/ML VIAL IVPUSH PRN ×2 (16:49→23:15)
[2022-03-18] MEDS: SUCRALFATE 1 GM/10 ML UNIT DOSE CUPS PO SCH ×2 (22:12)
[2022-03-18] MEDS: ONDANSETRON 4 MG/2 ML VIAL IVPUSH PRN (23:15)
[2022-03-19] MEDS ORDERED: ACETAMINOPHEN 325 MG TABLET (FP) PO PRN (04:00)
[2022-03-19] MEDS: DEXTROSE 5%-NORMAL SALINE 1,000 ML IV SCH ×2 (05:31→19:04)
[2022-03-19] MEDS: SUCRALFATE 1 GM/10 ML UNIT DOSE CUPS PO SCH ×4 (06:44→21:21)
[2022-03-19 07:02] LABS: BASO % 0.6 % (0-2.0); EOS % 4.5 % (0-4.5); HEMOGLOBIN 13.9 GM/dL (10.7-15.3); LYMPH % 36.6 % (8-40); MCH 27.2 pg (25.7-33.7); MCHC 33.1 g/dl (32.0-36.0); MEAN CELL VOLUME 82.2 fl (80-96); MEAN PLT VOLUME 8.1 fl (7.5-11.1); MONO % 8.2 % (3.8-10.2); NEUT % 50.1 % (42.8-82.8); PLATELET COUNT 262 10^3/uL (134-434); RDW 14.9 % (11.6-15.6); WHITE BLOOD COUNT 6.8 K/mm3 (4.0-10.0)
[2022-03-19 07:20] LABS: BLOOD UREA NITROGEN 9.8 mg/dL (7-18); CALCIUM 8.8 mg/dL (8.5-10.1)
[2022-03-19 07:24] LABS: CREATININE 0.9 mg/dL (0.55-1.3)
[2022-03-19] MEDS: morphine SULFATE 4 MG/ML VIAL IVPUSH PRN ×3 (08:26→23:00)
[2022-03-19] MEDS: CEFTRIAXONE 1 GM in DEXTROSE 5%-WATER - 50 ML IVPB SCH (09:06)
[2022-03-19] MEDS: GABAPENTIN 400 MG CAPSULE PO SCH ×2 (09:07→21:21)
[2022-03-19] MEDS: ONDANSETRON 4 MG/2 ML VIAL IVPUSH PRN (09:07)
[2022-03-19] MEDS: PHENAZOPYRIDINE HCL 100 MG TABLET (FP) PO SCH ×2 (09:07→21:20)
[2022-03-19] MEDS: PANTOPRAZOLE SODIUM 40 MG VIAL IVPUSH SCH (09:22)
[2022-03-19] MEDS: METOCLOPRAMIDE HCL INJECTION 10 MG/2 ML VIAL IVPB SCH (17:02)
[2022-03-19] MEDS ORDERED: HYDROmorphone HCl 2 MG/ML VIAL IVPB ONE (19:16)
[2022-03-20] MEDS: METOCLOPRAMIDE HCL INJECTION 10 MG/2 ML VIAL IVPB SCH ×2 (01:00→07:48)
[2022-03-20 01:57] LABS: CALCIUM 8.8 mg/dL (8.5-10.1)
[2022-03-20 01:58] LABS: ALBUMIN 3.6 g/dl (3.4-5.0); BLOOD UREA NITROGEN 7.9 mg/dL (7-18)
[2022-03-20 02:01] LABS: CREATININE 0.9 mg/dL (0.55-1.3)
[2022-03-20 02:02] LABS: BILIRUBIN,TOTAL 0.9 mg/dL (0.2-1); TOT PROT 6.9 g/dl (6.4-8.2)
[2022-03-20] MEDS: morphine SULFATE 4 MG/ML VIAL IVPUSH PRN ×2 (04:48→09:21)
[2022-03-20] MEDS: DEXTROSE 5%-NORMAL SALINE 1,000 ML IV SCH ×2 (05:35→12:25)
[2022-03-20] MEDS: SUCRALFATE 1 GM/10 ML UNIT DOSE CUPS PO SCH ×2 (05:59→11:49)
[2022-03-20 07:43] LABS: BASO % 0.3 % (0-2.0); EOS % 4.3 % (0-4.5); HEMOGLOBIN 13.9 GM/dL (10.7-15.3); LYMPH % 32.1 % (8-40); MCH 27.6 pg (25.7-33.7); MCHC 33.2 g/dl (32.0-36.0); MEAN CELL VOLUME 83.2 fl (80-96); MONO % 8.4 % (3.8-10.2); NEUT % 54.9 % (42.8-82.8); PLATELET COUNT 242 10^3/uL (134-434); RBC 5.05 M/mm3 (3.60-5.2); RDW 15.2 % (11.6-15.6); WHITE BLOOD COUNT 7.5 K/mm3 (4.0-10.0)
[2022-03-20] MEDS ORDERED: ACETAMINOPHEN 325 MG TABLET (FP) PO PRN (09:00)
[2022-03-20] MEDS: CEFTRIAXONE 1 GM in DEXTROSE 5%-WATER - 50 ML IVPB SCH (09:21)
[2022-03-20] MEDS: GABAPENTIN 400 MG CAPSULE PO SCH (09:21)
[2022-03-20] MEDS: PANTOPRAZOLE SODIUM 40 MG VIAL IVPUSH SCH (09:31)
[2022-03-20 14:14] VITALS: BP 116/68; PULSE 75; RESP 18; TEMP 98.8
== END 2022-03-20 15:39 | disposition left against medical advice (07) ==
LOC: JER 21:13 → JERBED 23:40 → J4S 03-18 18:51
PROVIDERS: ADMIT Hospitalist; ATTEND Internal Medicine
PROC: 3E033NZ Introduction of Analgesics, Hypnotics, Sedatives into Peripheral Vein, Percutaneous Approach (ICD-10-PCS; principal; 2022-03-17)
PROC: 3E03329 Introduction of Other Anti-infective into Peripheral Vein, Percutaneous Approach (ICD-10-PCS; 2022-03-17)
PROC: 3E033GC Introduction of Other Therapeutic Substance into Peripheral Vein, Percutaneous Approach (ICD-10-PCS; 2022-03-17)
PROC: 3E0333Z Introduction of Anti-inflammatory into Peripheral Vein, Percutaneous Approach (ICD-10-PCS; 2022-03-17)
DX: E66.01 Morbid (severe) obesity due to excess calories (principal); Z68.43 Body mass index [BMI] 50.0-59.9, adult; Z91.013 Allergy to seafood; J30.2 Other seasonal allergic rhinitis; Z91.09 Other allergy status, other than to drugs and biological substances; K21.9 Gastro-esophageal reflux disease without esophagitis; K29.60 Other gastritis without bleeding; Z98.84 Bariatric surgery status; Z86.16 Personal history of COVID-19; K80.20 Calculus of gallbladder without cholecystitis without obstruction; M25.50 Pain in unspecified joint; Z87.891 Personal history of nicotine dependence; R32 Unspecified urinary incontinence
CPT/HCPCS: 36415; 74177-TC; 80048; 80053; 81003; 82272; 84484; 84703; 85025; 85610; 85730; 86850; 86900; 86901; 87086; 87186; 93005; 93010; 96367; 96374; 96375; 96376; 99285-25; C9803-CS; G0378; U0003; U0005

== ENCOUNTER 2022-03-22 20:35 | Observation (INO) | payer OTHER ==
[2022-03-22] MEDS ORDERED: ONDANSETRON 4 MG/2 ML VIAL IVPUSH ONE (22:54)
[2022-03-22] MEDS ORDERED: MAG HYDROX/AL HYDROX/SIMETH 30 ML UNIT-DOSE CUP PO ONE (22:54)
[2022-03-22] MEDS ORDERED: FAMOTIDINE 20 MG/50 ML IVPB 20 MG/50 ML MG IVPB ONE (22:54)
[2022-03-22 23:06] LABS: PH,URINE 6.5 (5.0-8.0); URINE APPEARANCE CLEAR; URINE BILIRUBIN NEGATIVE (NEGATIVE); URINE COLOR YELLOW; URINE GLUCOSE (UA) NEGATIVE (NEGATIVE); URINE KETONE TRACE (NEGATIVE); URINE LEUK ESTERASE NEGATIVE (NEGATIVE); URINE NITRITE NEGATIVE (NEGATIVE); URINE PROTEIN NEGATIVE (NEGATIVE); URINE UROBILINOGEN 0.2 mg/dL (0.2-1.0)
[2022-03-23 00:50] LABS: BASO % 1.1 % (0-2.0); EOS % 1.9 % (0-4.5); HEMATOCRIT 40.1 % (32.4-45.2); HEMOGLOBIN 13.5 GM/dL (10.7-15.3); LYMPH % 27.3 % (8-40); MCH 27.3 pg (25.7-33.7); MCHC 33.7 g/dl (32.0-36.0); MEAN PLT VOLUME 8.1 fl (7.5-11.1); MONO % 6.6 % (3.8-10.2); NEUT % 63.1 % (42.8-82.8); PLATELET COUNT 320 10^3/uL (134-434); RBC 4.95 M/mm3 (3.60-5.2); RDW 15.3 % (11.6-15.6); RETICULOCYTES 2.38 % (0.5-1.5); WHITE BLOOD COUNT 10.7 K/mm3 (4.0-10.0)
[2022-03-23] MEDS ORDERED: morphine CARPU-JECT 4 MG/1 ML DISP.SYRIN IVPUSH ONE ×2 (00:50→03:52)
[2022-03-23] MEDS ORDERED: diphenhydrAMINE HCL 25 MG CAPSULE (FP) PO ONE ×2 (00:51→02:14)
[2022-03-23] MEDS ORDERED: SODIUM CHLORIDE 0.9% 500 ML INFUS.BAG IV ONE (00:52)
[2022-03-23] MEDS ORDERED: ACETAMINOPHEN 1000 MG/100 ML BAG IVPB ONE (00:52)
[2022-03-23] MEDS ORDERED: ACETAMINOPHEN INJECTION 100 ML IVPB ONE (00:54)
[2022-03-23] MEDS ORDERED: FAMOTIDINE 20 MG/50 ML IVPB 20 MG/50 ML MG IVPB ONE (00:54)
[2022-03-23] MEDS ORDERED: ONDANSETRON 4 MG/2 ML VIAL ONE (00:54)
[2022-03-23] MEDS ORDERED: MAG HYDROX/AL HYDROX/SIMETH 30 ML UNIT-DOSE CUP ONE (00:54)
[2022-03-23 00:57] LABS: INR 1.07 (0.83-1.09); PROTHROMBIN TIME (PATIENT) 12.3 SEC (9.7-13.0)
[2022-03-23 00:59] LABS: ACTIVATED PTT 36.1 SECONDS (25.2-36.5)
[2022-03-23 02:44] LABS: ALBUMIN 3.7 g/dl (3.4-5.0); BLOOD UREA NITROGEN 13.2 mg/dL (7-18); CALCIUM 9.2 mg/dL (8.5-10.1)
[2022-03-23 02:49] LABS: BILIRUBIN,TOTAL 0.7 mg/dL (0.2-1); TOT PROT 7.4 g/dl (6.4-8.2)
[2022-03-23] MEDS ORDERED: morphine SULFATE 4 MG/ML VIAL ONE ×2 (02:50→04:01)
[2022-03-23] MEDS ORDERED: morphine CARPU-JECT 2 MG/1 ML DISP.SYRIN IVPUSH ONE (04:38)
[2022-03-23] MEDS ORDERED: SUCRALFATE 1 GM TABLET (FP) PO ONE (04:39)
[2022-03-23] MEDS ORDERED: SUCRALFATE 1 GM TABLET (FP) ONE (04:47)
[2022-03-23] MEDS ORDERED: ACETAMINOPHEN 1000 MG/100 ML BAG IVPB PRN (06:14)
[2022-03-23] MEDS: DEXTROSE 5%-0.45% SALINE 1,000 ML IV SCH (06:30)
[2022-03-23] MEDS ORDERED: HEPARIN NA (PORCINE) 5,000 UNITS/ML 1ML VIAL ONE (11:09)
[2022-03-23] MEDS: HEPARIN NA (PORCINE) 5,000 UNITS/ML 1ML VIAL SQ SCH ×2 (11:09→22:32)
[2022-03-23] MEDS ORDERED: oxyCODONE HCL 5 MG TABLET ONE (16:17)
[2022-03-23] MEDS: oxyCODONE HCL 5 MG TABLET PO PRN (16:17)
[2022-03-23] MEDS: GABAPENTIN 400 MG CAPSULE PO SCH (22:32)
[2022-03-23 23:46] VITALS: RESP 18; BMI 53.8
[2022-03-24] MEDS: DEXTROSE 5%-0.45% SALINE 1,000 ML IV SCH (01:16)
[2022-03-24 06:32] VITALS: BP 129/65; PULSE 69; TEMP 98
[2022-03-24 08:26] LABS: BASO % 0.7 % (0-2.0); EOS % 4.6 % (0-4.5); HEMATOCRIT 39.6 % (32.4-45.2); HEMOGLOBIN 13.1 GM/dL (10.7-15.3); LYMPH % 33.8 % (8-40); MCH 27.1 pg (25.7-33.7); MCHC 33.1 g/dl (32.0-36.0); MEAN PLT VOLUME 7.8 fl (7.5-11.1); MONO % 7.7 % (3.8-10.2); NEUT % 53.2 % (42.8-82.8); PLATELET COUNT 274 10^3/uL (134-434); RBC 4.84 M/mm3 (3.60-5.2); RDW 15.1 % (11.6-15.6)
[2022-03-24 08:54] LABS: CALCIUM 8.7 mg/dL (8.5-10.1)
[2022-03-24 08:55] LABS: ALBUMIN 3.3 g/dl (3.4-5.0); MAGNESIUM 2.3 mg/dL (1.8-2.4)
[2022-03-24 08:57] LABS: CREATININE 0.8 mg/dL (0.55-1.3)
[2022-03-24 08:58] LABS: PHOSPHOROUS 4.4 mg/dL (2.5-4.9)
[2022-03-24 08:59] LABS: BILIRUBIN,TOTAL 1.1 mg/dL (0.2-1); TOT PROT 6.3 g/dl (6.4-8.2)
[2022-03-24] MEDS ORDERED: PANTOPRAZOLE 40 MG TABLET PO SCH (10:00)
[2022-03-24] MEDS: HEPARIN NA (PORCINE) 5,000 UNITS/ML 1ML VIAL SQ SCH (10:48)
[2022-03-24] MEDS: GABAPENTIN 400 MG CAPSULE PO SCH (10:49)
[2022-03-24] MEDS: oxyCODONE HCL 5 MG TABLET PO PRN (12:26)
== END 2022-03-24 14:52 | disposition left against medical advice (07) ==
LOC: JER 20:35 → JERBED 22:26 → J8W 03-23 21:30
PROVIDERS: ADMIT Internal Medicine; ATTEND Internal Medicine
PROC: 3E023GC Introduction of Other Therapeutic Substance into Muscle, Percutaneous Approach (ICD-10-PCS; principal; 2022-03-22)
PROC: 3E033GC Introduction of Other Therapeutic Substance into Peripheral Vein, Percutaneous Approach (ICD-10-PCS; 2022-03-22)
PROC: 3E033NZ Introduction of Analgesics, Hypnotics, Sedatives into Peripheral Vein, Percutaneous Approach (ICD-10-PCS; 2022-03-22)
PROC: 3E0337Z Introduction of Electrolytic and Water Balance Substance into Peripheral Vein, Percutaneous Approach (ICD-10-PCS; 2022-03-22)
DX: K29.60 Other gastritis without bleeding (principal); K21.9 Gastro-esophageal reflux disease without esophagitis; Z87.891 Personal history of nicotine dependence; J45.909 Unspecified asthma, uncomplicated; G47.30 Sleep apnea, unspecified; Z96.641 Presence of right artificial hip joint; Z98.84 Bariatric surgery status; Z68.43 Body mass index [BMI] 50.0-59.9, adult; I10 Essential (primary) hypertension; E66.01 Morbid (severe) obesity due to excess calories; Z91.013 Allergy to seafood; Z88.8 Allergy status to other drugs, medicaments and biological substances
CPT/HCPCS: 36415; 74176-TC; 80053; 81003; 82272; 83735; 84100; 85025; 85045; 85610; 85730; 86850; 86900; 86901; 87086; 96365; 96367; 96372; 96375; 99285-25; C9803-CS; G0378; J1644; U0003; U0005

== ENCOUNTER 2024-03-27 14:05 | Inpatient (IN) | payer OTHER ==
[2024-03-27 14:19] VITALS: BMI 54.9
[2024-03-27 16:27] LABS: BASO % 0.8 % (0-2.0); EOS % 4.3 % (0-4.5); HEMATOCRIT 41.3 % (32.4-45.2); LYMPH % 37.8 % (8-40); MCH 28.2 pg (25.7-33.7); MCHC 33.8 g/dl (32.0-36.0); MEAN CELL VOLUME 83.6 fl (80-96); MONO % 7.8 % (3.8-10.2); NEUT % 49.3 % (42.8-82.8); PLATELET COUNT 292 10^3/uL (134-434); RBC 4.94 M/mm3 (3.60-5.2); RDW 14.8 % (11.6-15.6); WHITE BLOOD COUNT 8.1 K/mm3 (4.0-10.0)
[2024-03-27 16:46] LABS: POTASSIUM 4.1 mmol/L (3.5-5.1)
[2024-03-27 16:48] LABS: ALBUMIN 3.7 g/dl (3.4-5.0)
[2024-03-27 16:50] LABS: BLOOD UREA NITROGEN 14.2 mg/dL (7-18)
[2024-03-27 16:51] LABS: CREATININE 0.9 mg/dL (0.55-1.3)
[2024-03-27 16:53] LABS: BILIRUBIN,TOTAL 0.7 mg/dL (0.2-1); TOT PROT 7.3 g/dl (6.4-8.2)
[2024-03-27] MEDS ORDERED: HYDROmorphone HCL 2 MG TABLET ONE (17:17)
[2024-03-27] MEDS: HYDROmorphone HCL 2 MG TABLET PO ONE (17:21)
[2024-03-27] MEDS ORDERED: ONDANSETRON 4 MG/2 ML VIAL ONE (18:22)
[2024-03-27] MEDS: ONDANSETRON 4 MG/2 ML VIAL IVPB ONE (18:38)
[2024-03-27] MEDS: CELECOXIB 200 MG CAPSULE PO SCH (19:18)
[2024-03-27] MEDS ORDERED: DOCUSATE SODIUM 100 MG CAPSULE (FP) PO PRN (22:08)
[2024-03-27] MEDS ORDERED: GABAPENTIN 300 MG CAPSULE ONE (22:40)
[2024-03-27] MEDS ORDERED: COLCHICINE 0.6 MG TAB ONE (22:40)
[2024-03-27] MEDS ORDERED: HYDROmorphone HCL CARPU-JECT 2 MG/1 ML DISP.SYRIN ONE (22:41)
[2024-03-27] MEDS ORDERED: FAMOTIDINE 20 MG/50 ML IVPB 20 MG/50 ML MG IVPB ONE (22:41)
[2024-03-27] MEDS ORDERED: ACETAMINOPHEN INJECTION 100 ML IVPB ONE (22:41)
[2024-03-27] MEDS: HYDROmorphone HCl 2 MG/ML VIAL IVPB ONE (22:53)
[2024-03-27] MEDS: FAMOTIDINE 20 MG/50 ML IVPB 20 MG/50 ML MG IVPB ONE (22:54)
[2024-03-27] MEDS: COLCHICINE 0.6 MG TAB PO SCH (22:54)
[2024-03-27] MEDS: GABAPENTIN 400 MG CAPSULE PO SCH (22:55)
[2024-03-27] MEDS: ACETAMINOPHEN 1000 MG/100 ML BAG IVPB SCH (22:55)
[2024-03-28 02:45] LABS: EPI CELLS >36 /uL (0-25.1); HYALINE CASTS 6 /uL (0-3.1); PH,URINE 5.5 (5.0-8.0); URINE APPEARANCE CLOUDY; URINE BACTERIA >9,000 /uL (0-1359); URINE BILIRUBIN NEGATIVE (NEGATIVE); URINE COLOR YELLOW; URINE GLUCOSE (UA) NEGATIVE (NEGATIVE); URINE KETONE TRACE (NEGATIVE); URINE LEUK ESTERASE 1+ (NEGATIVE); URINE NITRITE NEGATIVE (NEGATIVE); URINE PROTEIN NEGATIVE (NEGATIVE); URINE RBC 50 /uL (0-23.9); URINE UROBILINOGEN 0.2 mg/dL (0.2-1.0); URINE WBC 276 /uL (0-25.8)
[2024-03-28] MEDS ORDERED: HYDROmorphone HCL CARPU-JECT 2 MG/1 ML DISP.SYRIN ONE (02:55)
[2024-03-28] MEDS: HYDROmorphone HCL CARPU-JECT 2 MG/1 ML DISP.SYRIN IVPB PRN (03:04)
[2024-03-28] MEDS ORDERED: ONDANSETRON 4 MG/2 ML VIAL ONE (03:37)
[2024-03-28] MEDS: MELATONIN 5 MG TABLETS PO PRN (03:49)
[2024-03-28] MEDS: ONDANSETRON 4 MG/2 ML VIAL IVPUSH PRN (03:49)
[2024-03-28 06:48] LABS: BASO % 0.8 % (0-2.0); EOS % 5.1 % (0-4.5); HEMATOCRIT 40.8 % (32.4-45.2); HEMOGLOBIN 13.4 GM/dL (10.7-15.3); LYMPH % 44.6 % (8-40); MCH 27.9 pg (25.7-33.7); MCHC 32.8 g/dl (32.0-36.0); MEAN CELL VOLUME 84.9 fl (80-96); MEAN PLT VOLUME 8.1 fl (7.5-11.1); MONO % 9.8 % (3.8-10.2); NEUT % 39.7 % (42.8-82.8); PLATELET COUNT 288 10^3/uL (134-434); RBC 4.81 M/mm3 (3.60-5.2); WHITE BLOOD COUNT 8.3 K/mm3 (4.0-10.0)
[2024-03-28 07:18] LABS: POTASSIUM 4.1 mmol/L (3.5-5.1)
[2024-03-28 07:19] LABS: CALCIUM 9.4 mg/dL (8.5-10.1)
[2024-03-28 07:20] LABS: BLOOD UREA NITROGEN 20.5 mg/dL (7-18)
[2024-03-28 07:23] LABS: CREATININE 1.3 mg/dL (0.55-1.3)
[2024-03-28 07:30] LABS: URIC ACID 9.1 mg/dL (2.6-7.2)
[2024-03-28] MEDS ORDERED: INSULIN (NOVOLOG MIX 70/30) 100 UNITS/ML MDV SQ ONE (07:45)
[2024-03-28] MEDS: PANTOPRAZOLE 40 MG TABLET PO SCH (10:31)
[2024-03-28] MEDS: GABAPENTIN 300 MG CAPSULE PO SCH (10:31)
[2024-03-28] MEDS: HEPARIN NA (PORCINE) 5,000 UNITS/ML 1ML VIAL SQ SCH (13:58)
[2024-03-28] MEDS: HYDROmorphone HCL CARPU-JECT 2 MG/1 ML DISP.SYRIN IVPB ONE (15:33)
[2024-03-28] MEDS: LIDOCAINE 4% PATCH TP SCH (17:22)
[2024-03-28] MEDS: predniSONE 20 MG TABLET (UD) PO SCH (17:24)
[2024-03-28] MEDS: LIDOCAINE PATCH REMOVAL MC SCH (21:53)
[2024-03-29] MEDS: ACETAMINOPHEN 1000 MG/100 ML BAG IVPB PRN (04:46)
[2024-03-29] MEDS: ACETAMINOPHEN 1000 MG/100 ML BAG IVPB SCH (09:09)
[2024-03-29 09:17] LABS: HEMATOCRIT 42.4 % (32.4-45.2); HEMOGLOBIN 14.2 GM/dL (10.7-15.3); MCH 28.1 pg (25.7-33.7); MCHC 33.5 g/dl (32.0-36.0); MEAN CELL VOLUME 84.1 fl (80-96); MEAN PLT VOLUME 8.3 fl (7.5-11.1); PLATELET COUNT 308 10^3/uL (134-434); RBC 5.04 M/mm3 (3.60-5.2); RDW 14.6 % (11.6-15.6); WHITE BLOOD COUNT 9.2 K/mm3 (4.0-10.0)
[2024-03-29 09:41] LABS: POTASSIUM 4.3 mmol/L (3.5-5.1)
[2024-03-29 09:47] LABS: CALCIUM 9.5 mg/dL (8.5-10.1)
[2024-03-29 09:48] LABS: ALBUMIN 3.7 g/dl (3.4-5.0); BLOOD UREA NITROGEN 14.3 mg/dL (7-18); MAGNESIUM 2.2 mg/dL (1.8-2.4)
[2024-03-29 09:50] LABS: URIC ACID 7.8 mg/dL (2.6-7.2)
[2024-03-29 09:51] LABS: CREATININE 0.7 mg/dL (0.55-1.3); PHOSPHOROUS 3.5 mg/dL (2.5-4.9)
[2024-03-29 09:52] LABS: BILIRUBIN,TOTAL 0.8 mg/dL (0.2-1); TOT PROT 7.3 g/dl (6.4-8.2)
[2024-03-30 08:56] LABS: BASO % 0.4 % (0-2.0); EOS % 1.9 % (0-4.5); HEMATOCRIT 40.3 % (32.4-45.2); HEMOGLOBIN 13.5 GM/dL (10.7-15.3); LYMPH % 44.3 % (8-40); MCH 27.9 pg (25.7-33.7); MCHC 33.5 g/dl (32.0-36.0); MEAN CELL VOLUME 83.4 fl (80-96); MONO % 7.1 % (3.8-10.2); NEUT % 46.3 % (42.8-82.8); PLATELET COUNT 306 10^3/uL (134-434); RBC 4.83 M/mm3 (3.60-5.2); RDW 14.9 % (11.6-15.6); WHITE BLOOD COUNT 10.2 K/mm3 (4.0-10.0)
[2024-03-30 09:21] LABS: ALBUMIN 3.5 g/dl (3.4-5.0); BLOOD UREA NITROGEN 12.7 mg/dL (7-18)
[2024-03-30 09:22] LABS: MAGNESIUM 2.3 mg/dL (1.8-2.4)
[2024-03-30 09:24] LABS: CREATININE 0.8 mg/dL (0.55-1.3)
[2024-03-30 09:25] LABS: BILIRUBIN,TOTAL 0.8 mg/dL (0.2-1)
[2024-03-30 09:26] LABS: TOT PROT 6.5 g/dl (6.4-8.2)
[2024-03-31 09:52] LABS: URINE APPEARANCE CLEAR; URINE BILIRUBIN NEGATIVE (NEGATIVE); URINE COLOR YELLOW; URINE GLUCOSE (UA) NEGATIVE (NEGATIVE); URINE KETONE NEGATIVE (NEGATIVE); URINE LEUK ESTERASE NEGATIVE (NEGATIVE); URINE NITRITE NEGATIVE (NEGATIVE); URINE PROTEIN NEGATIVE (NEGATIVE); URINE UROBILINOGEN 0.2 mg/dL (0.2-1.0)
[2024-03-31] MEDS: CEPHALEXIN MONOHYDRATE 500 MG CAPSULE (UD) PO SCH (09:59)
[2024-03-31] MEDS: HYDROmorphone HCL CARPU-JECT 2 MG/1 ML DISP.SYRIN IVPUSH PRN (09:59)
[2024-04-02 10:39] VITALS: RESP 18
[2024-04-03] MEDS: CEFTRIAXONE 1 GM in DEXTROSE 5%-WATER - 50 ML IVPB SCH (20:32)
[2024-04-04 15:11] LABS: BASO % 0.5 % (0-2.0); EOS % 0.4 % (0-4.5); HEMATOCRIT 41.4 % (32.4-45.2); LYMPH % 18.6 % (8-40); MCH 28.2 pg (25.7-33.7); MCHC 33.8 g/dl (32.0-36.0); MEAN CELL VOLUME 83.5 fl (80-96); MEAN PLT VOLUME 7.7 fl (7.5-11.1); MONO % 6.3 % (3.8-10.2); NEUT % 74.2 % (42.8-82.8); PLATELET COUNT 301 10^3/uL (134-434); RBC 4.96 M/mm3 (3.60-5.2); RDW 15.3 % (11.6-15.6); WHITE BLOOD COUNT 8.8 K/mm3 (4.0-10.0)
[2024-04-04] MEDS: HYDROmorphone HCL CARPU-JECT 2 MG/1 ML DISP.SYRIN IVPB PRN (20:42)
[2024-04-04] MEDS ORDERED: HYDROmorphone HCL CARPU-JECT 2 MG/1 ML DISP.SYRIN IVPB SCH (22:00)
[2024-04-04] MEDS ORDERED: HYDROmorphone HCl 2 MG/ML VIAL IVPUSH ONE (23:45)
[2024-04-04] MEDS ORDERED: HYDROmorphone HCl 2 MG/ML VIAL IVPB ONE (23:45)
[2024-04-05] MEDS: HYDROmorphone HCL CARPU-JECT 2 MG/1 ML DISP.SYRIN IVPB ONE (00:11)
[2024-04-05] MEDS: ZOLPIDEM TARTRATE 5 MG TABLET PO PRN (00:58)
[2024-04-05] MEDS ORDERED: NITROFURANTOIN MONOHYD/M-CRYST 100 MG CAPSULE PO SCH (10:00)
[2024-04-05] MEDS: CEFPODOXIME PROXETIL 100 MG TABLET PO SCH (11:14)
[2024-04-05] MEDS: ACETAMINOPHEN 500 MG TABLET (FP) PO SCH (13:31)
[2024-04-05] MEDS: PHENAZOPYRIDINE HCL 100 MG TABLET (FP) PO SCH (13:32)
[2024-04-05 15:27] VITALS: PULSE 80
[2024-04-05 21:27] VITALS: BP 123/61; TEMP 98.8
[2024-04-05] MEDS: CELECOXIB 200 MG CAPSULE PO SCH (22:02)
[2024-04-06] MEDS: CEFPODOXIME PROXETIL 100 MG TABLET PO ONE (09:14)
== END 2024-04-06 13:24 | disposition home or self-care (01) | DRG 554 ==
LOC: JER 14:05 → JERBED 17:52 → J6S 03-28 07:01
PROVIDERS: ADMIT Internal Medicine; ATTEND Internal Medicine
DX: M10.9 Gout, unspecified (principal); Z59.00 Homelessness unspecified; Z68.43 Body mass index [BMI] 50.0-59.9, adult; N39.0 Urinary tract infection, site not specified; E66.01 Morbid (severe) obesity due to excess calories; K21.9 Gastro-esophageal reflux disease without esophagitis; M17.0 Bilateral primary osteoarthritis of knee; M16.11 Unilateral primary osteoarthritis, right hip
CPT/HCPCS: 36415; 71046-TC-FY; 73502-TC-RT-FY; 73562-TC-LT-FY; 73562-TC-RT-FY; 73630-TC-LT; 76775-TC; 76856-TC; 80048; 80053; 81003; 83735; 84100; 84484; 84550; 85025; 85027; 85651; 86140; 87086; 87186; 93005; 93010; 97116-GP; 99285-25; J0131; J1644